=== PATIENT | male | born 1955 | race Caucasian/White ===

== ENCOUNTER 2019-09-13 10:35 | Emergency (ER) | payer OTHER, SELFPAY ==
[2019-09-13] MEDS ORDERED: Sodium Chloride 0.9% 1000 ML 1,000 ML IV STA (10:43)
[2019-09-13] MEDS ORDERED: Sodium Chloride 0.9% 1000 ML 1,000 ML ONE (10:54)
[2019-09-13] MEDS ORDERED: Zofran 4 MG/2 ML VIAL IV ONE ×2 (10:55→11:24)
[2019-09-13] MEDS ORDERED: Zofran 4 MG/2 ML VIAL ONE ×2 (10:55→11:26)
[2019-09-13] MEDS ORDERED: TORAdol 30 mg Injection IV ONE (10:55)
[2019-09-13] MEDS ORDERED: TORAdol 30 mg Injection ONE (10:56)
[2019-09-13 11:07] LABS: Absolute Neutrophil Ct (ANC) 9.81 (1.4-6.9); BASOPHIL % 0.3 % (0.0-0.4); Basophil (Absolute #) 0.03 (0-0.4); Eosinophil % 0.3 % (0.00-5.0); Eosinophil (Absolute #) 0.04 (0-0.5); Hematocrit 46.4 % (42-50); Hemoglobin 15.2 gm/dl (12.5-18.0); Lymphocyte (Absolute #) 1.18 (1.0-4.6); Lymphocytes % 10.2 % (24.0-44.0); Mean Cell Volume 88.7 fl (78-100); Mean Corpuscular Hemoglobin 29.1 pg (26-32); Mean Corpuscular Hgb Concent. 32.8 g/dl (32-36); Mean Platelet Volume 11.3 fl (7.5-11.0); Monocyte (Absolute #) 0.54 (0.0-1.3); Monocytes % 4.7 % (0.0-12.0); Neutrophil % 84.5 % (36.0-66.0); Platelet Count 193 K/mm3 (150-450); Red Blood Count 5.23 M/mm3 (4.1-5.6); Red Cell Distribution Width 13.2 % (11.5-14.0); White Blood Count 11.6 K/mm3 (4.0-10.5)
[2019-09-13 11:21] LABS: ALBUMIN 4.4 g/dL (3.5-5.0); ALKALINE PHOSPHATASE 182 U/L (38-126); AMYLASE 131 U/L (30-110); ANION GAP 14.3 MEQ/L (5-15); BLOOD UREA NITROGEN 18 mg/dL (9-20); CHLORIDE 106 mmol/L (98-107); Calcium 9.7 mg/dL (8.4-10.2); Carbon Dioxide 24 mmol/L (22-30); Creatinine 1 1.14 mg/dL (0.66-1.25); Glucose 242 mg/dL (74-106); LIPASE 563 U/L (23-300); Potassium 3.8 mmol/L (3.5-5.1); SGOT/AST 29 U/L (17-59); SGPT/ALT 22 U/L (0-50); SODIUM 140 mmol/L (137-145); Total Protein 7.9 g/dL (6.3-8.2)
[2019-09-13] MEDS ORDERED: SUBLIMAZE 100 MCG/2 ML IV ONE (11:24)
[2019-09-13] MEDS ORDERED: SUBLIMAZE 100 MCG/2 ML ONE (11:27)
--- NOTE | 2019-09-13 11:42 | ERPHSYRPT ---
- History of Present Illness Time Seen by Provider: 09/13/19 10:39 Historian: patient Exam Limitations: no limitations Patient Subjective Stated Complaint: pt here for pain to left side of abd since 0300 this morning, with nausea and vomitng. states pain radiates to left flank. Triage Nursing Assessment: pt alert, helped pt out of care, moaning, placed face mask, resp easy, skin w/d/p. abd soft, no difficulty with bowel and bladder Physician History: 64 yo wm w LLQ pain rated an 8 for 8hrs. Pt has L flank pain also w N/V but denies hematemesis/diarrhea/melena/hematochezia/dysuria/hematuria/chest pain/dyspnea/fever. Nothing makes the pain better/worse. Timing/Duration: hour(s) (8Hr) Activities at Onset: rest Quality: other (Unable to describe) Abdominal Pain Onset Location: LLQ Pain Radiation: flank Severity of Pain-Max: severe Severity of Pain-Current: severe Modifying Factors: Improves With: nothing Associated Symptoms: back, nausea, vomiting, No chest pain, No diaphoresis, No diarrhea, No fever/chills, No fatigue, No headache, No heartburn, No loss of appetite, No neck pain, No rash, No shortness of breath, No syncope, No testicular pain, No weakness Previous symptoms: other (Similar symptoms 1-2 days ago w spontaneous resolution) Allergies/Adverse Reactions: No Known Drug Allergies Allergy (Unverified 09/13/19 10:38) Hx Influenza Vaccination/Date Given: No Hx Pneumococcal Vaccination/Date Given: No Immunizations Up to Date: Yes Travel Risk - International Travel Have you traveled outside of the country in past 3 weeks: No - Coronavirus Screening Are you exhibiting any of the following symptoms?: Yes Symptoms: Vomiting/Diarrhea Close contact with a COVID-19 positive Pt in past 14-21 Days: No - Review of Systems Constitutional: No Symptoms Eyes: No Symptoms Ears, Nose, & Throat: No Symptoms Respiratory: No Symptoms Cardiac: No Symptoms Genitourinary Symptoms: No Symptoms Musculoskeletal: No Symptoms Skin: No Symptoms Neurological: No Symptoms Psychological: No Symptoms Endocrine: No Symptoms Hematologic/Lymphatic: No Symptoms Immunological/Allergic: No Symptoms - Past Medical History Pertinent Past Medical History: Yes Cardiac History: High Cholesterol, Hypertension - Past Surgical History Past Surgical History: No - Social History Smoking Status: Former smoker Exposure to second hand smoke: No Drug Use: marijuana Patient Lives Alone: No Significant Family History: no pertinent family hx - Nursing Vital Signs Nursing Vital Signs: Initial Vital Signs Temperature 98.7 F 09/13/19 10:38 Pulse Rate 73 09/13/19 10:38 Respiratory Rate 18 09/13/19 10:38 Blood Pressure 197/100 09/13/19 10:38 O2 Sat by Pulse Oximetry 98 09/13/19 10:38 Pain Scale Pain Intensity 3 - Physical Exam General Appearance: no apparent distress (Pt in pain) Eye Exam: PERRL/EOMI, eyes nml inspection Ears, Nose, Throat Exam: normal ENT inspection, TMs normal, pharynx normal, moist mucous membranes Neck Exam: normal inspection, non-tender, supple, full range of motion, No meningismus, No mass, No Brudzinski, No Kernig's Respiratory Exam: normal breath sounds, lungs clear, airway intact, No respiratory distress Cardiovascular Exam: regular rate/rhythm, normal heart sounds, normal peripheral pulses, No murmur, No edema Gastrointestinal/Abdomen Exam: soft, tenderness (LLQ ttp w guarding/No rebound/L flank ttp) SpO2: 98 - CT Exams Abdomen/Pelvis CT Interpretation: Tele-radiologist Report (4mm L distal ureteral stone/1cm stone inferior pole L kidney/non-calcified nodule RLL) Ordered Tests: Active Orders 24 hr Category Date Time Status IV Insertion STAT Care 09/13/19 10:43 Active ABDOMEN AND PELVIS W/0 CONTRAS [CT] Stat Exams 09/13/19 12:59 Taken AMYLASE Stat Lab 09/13/19 10:40 Completed CBC W DIFF Stat Lab 09/13/19 10:40 Completed CMP Stat Lab 09/13/19 10:40 Completed LIPASE Stat Lab 09/13/19 10:40 Completed TROPONIN Q3H Lab 09/13/19 10:40 Completed TROPONIN Q3H Lab 09/13/19 14:00 Ordered TROPONIN Q3H Lab 09/13/19 17:00 Ordered TROPONIN Q3H Lab 09/13/19 20:00 Ordered TROPONIN Q3H Lab 09/13/19 23:00 Ordered UA W/RFX UR CULTURE Stat Lab 09/13/19 12:11 Completed Medication Summary Discontinued Medications Generic Name Dose Route Start Last Admin Trade Name Freq PRN Reason Stop Dose Admin Fentanyl Citrate 50 mcg 09/13/19 11:24 09/13/19 11:29 Sublimaze 100 Mcg/2 Ml IV 09/13/19 11:25 50 mcg STAT ONE Administration Fentanyl Citrate Confirm 09/13/19 11:27 Sublimaze 100 Mcg/2 Ml Administered 09/13/19 11:28 Dose 100 mcg .ROUTE .STK-MED ONE Sodium Chloride 1,000 mls @ 999 mls/hr 09/13/19 10:43 09/13/19 12:03 Sodium Chloride 0.9% 1000 Ml IV 09/13/19 11:43 Infused .Q1H1M STA Infusion Sodium Chloride Confirm 09/13/19 10:54 Sodium Chloride 0.9% 1000 Ml Administered 09/13/19 10:55 Dose 1,000 mls @ ud .ROUTE .STK-MED ONE Ketorolac Tromethamine 30 mg 09/13/19 10:55 09/13/19 10:56 Toradol 30 Mg Injection IV 09/13/19 10:56 30 mg STAT ONE Administration Ketorolac Tromethamine Confirm 09/13/19 10:56 Toradol 30 Mg Injection Administered 09/13/19 10:57 Dose 30 mg .ROUTE .STK-MED ONE Ondansetron HCl 4 mg 09/13/19 10:55 09/13/19 10:56 Zofran 4 Mg/2 Ml Vial IV 09/13/19 10:56 4 mg STAT ONE Administration Ondansetron HCl Confirm 09/13/19 10:55 Zofran 4 Mg/2 Ml Vial Administered 09/13/19 10:56 Dose 4 mg .ROUTE .STK-MED ONE Ondansetron HCl 4 mg 09/13/19 11:24 09/13/19 11:29 Zofran 4 Mg/2 Ml Vial IV 09/13/19 11:25 4 mg STAT ONE Administration Ondansetron HCl Confirm 09/13/19 11:26 Zofran 4 Mg/2 Ml Vial Administered 09/13/19 11:27 Dose 4 mg .ROUTE .STK-MED ONE Lab/Rad Data: Laboratory Result Diagrams 09/13/19 10:40 09/13/19 10:40 Laboratory Results 07/26/20 07/26/20 07/26/20 Range/Units 12:11 10:40 10:40 WBC (4.0-10.5) K/mm3 RBC (4.1-5.6) M/mm3 Hgb (12.5-18.0) gm/dl Hct (42-50) % MCV (78-100) fl MCH (26-32) pg MCHC (32-36) g/dl RDW (11.5-14.0) % Plt Count (150-450) K/mm3 MPV (7.5-11.0) fl Gran % (36.0-66.0) % Eos # (Auto) (0-0.5) Absolute Lymphs (auto) (1.0-4.6) Absolute Monos (auto) (0.0-1.3) Lymphocytes % (24.0-44.0) % Monocytes % (0.0-12.0) % Eosinophils % (0.00-5.0) % Basophils % (0.0-0.4) % Absolute Granulocytes (1.4-6.9) Basophils # (0-0.4) Sodium 140 (137-145) mmol/L Potassium 3.8 (3.5-5.1) mmol/L Chloride 106 (98-107) mmol/L Carbon Dioxide 24 (22-30) mmol/L Anion Gap 14.3 (5-15) MEQ/L BUN 18 (9-20) mg/dL Creatinine 1.14 (0.66-1.25) mg/dL Estimated GFR > 60.0 ML/MIN Glucose 242 H (74-106) mg/dL Calcium 9.7 (8.4-10.2) mg/dL Total Bilirubin 0.90 (0.2-1.3) mg/dL AST 29 (17-59) U/L ALT 22 (0-50) U/L Alkaline Phosphatase 182 H (38-126) U/L Troponin I < 0.012 (0.000-0.034) ng/mL Serum Total Protein 7.9 (6.3-8.2) g/dL Albumin 4.4 (3.5-5.0) g/dL Amylase 131 H (30-110) U/L Lipase 563 H (23-300) U/L Urine Color STRAW (YELLOW) Urine Appearance CLEAR (CLEAR) Urine pH 7.0 (5-6) Ur Specific [place] 1.017 (1.005-1.025) Urine Protein NEGATIVE (Negative) Urine Ketones TRACE (NEGATIVE) Urine Blood MODERATE (0-5) Shilo/ul Urine Nitrite NEGATIVE (NEGATIVE) Urine Bilirubin NEGATIVE (NEGATIVE) Urine Urobilinogen NEGATIVE (0-1) mg/dL Ur Leukocyte Esterase NEGATIVE (NEGATIVE) Urine WBC (Auto) NONE (0-5) /HPF Urine RBC (Auto) 16-25 (0-2) /HPF U Epithel Cells (Auto) NONE (FEW) /HPF Urine Bacteria (Auto) RARE (NEGATIVE) /HPF Urine Culture Reflexed NO (NO) Urine Glucose >=500 (NEGATIVE) mg/dL 09/13/19 Range/Units 10:40 WBC 11.6 H (4.0-10.5) K/mm3 RBC 5.23 (4.1-5.6) M/mm3 Hgb 15.2 (12.5-18.0) gm/dl Hct 46.4 (42-50) % MCV 88.7 (78-100) fl MCH 29.1 (26-32) pg MCHC 32.8 (32-36) g/dl RDW 13.2 (11.5-14.0) % Plt Count 193 (150-450) K/mm3 MPV 11.3 H (7.5-11.0) fl Gran % 84.5 H (36.0-66.0) % Eos # (Auto) 0.04 (0-0.5) Absolute Lymphs (auto) 1.18 (1.0-4.6) Absolute Monos (auto) 0.54 (0.0-1.3) Lymphocytes % 10.2 L (24.0-44.0) % Monocytes % 4.7 (0.0-12.0) % Eosinophils % 0.3 (0.00-5.0) % Basophils % 0.3 (0.0-0.4) % Absolute Granulocytes 9.81 H (1.4-6.9) Basophils # 0.03 (0-0.4) Sodium (137-145) mmol/L Potassium (3.5-5.1) mmol/L Chloride (98-107) mmol/L Carbon Dioxide (22-30) mmol/L Anion Gap (5-15) MEQ/L BUN (9-20) mg/dL Creatinine (0.66-1.25) mg/dL Estimated GFR ML/MIN Glucose (74-106) mg/dL Calcium (8.4-10.2) mg/dL Total Bilirubin (0.2-1.3) mg/dL AST (17-59) U/L ALT (0-50) U/L Alkaline Phosphatase (38-126) U/L Troponin I (0.000-0.034) ng/mL Serum Total Protein (6.3-8.2) g/dL Albumin (3.5-5.0) g/dL Amylase (30-110) U/L Lipase (23-300) U/L Urine Color (YELLOW) Urine Appearance (CLEAR) Urine pH (5-6) Ur Specific [place] (1.005-1.025) Urine Protein (Negative) Urine Ketones (NEGATIVE) Urine Blood (0-5) Shilo/ul Urine Nitrite (NEGATIVE) Urine Bilirubin (NEGATIVE) Urine Urobilinogen (0-1) mg/dL Ur Leukocyte Esterase (NEGATIVE) Urine WBC (Auto) (0-5) /HPF Urine RBC (Auto) (0-2) /HPF U Epithel Cells (Auto) (FEW) /HPF Urine Bacteria (Auto) (NEGATIVE) /HPF Urine Culture Reflexed (NO) Urine Glucose (NEGATIVE) mg/dL - Progress Progress: improved Progress Note: 09/13/19 13:04 30mg IV toradol/4mg IV zofran w improvement in pain 50umg IV fentanyl/4mg IV zofran w great improvement in pain 1L NS bolus Discussed with Dr.: Other (Dr. Fabian) Counseled pt/family regarding: lab results, diagnosis, rad results - Departure Departure Disposition: Home Clinical Impression: Ureterolithiasis, Lung nodule Condition: Stable Critical Care Time: No Referrals: GRZEGORZ JOHNSON MD [Primary Care Provider] - KRISTOFER FABIAN [COURTESY STAFF] - Additional Instructions: Strain all urine Pain meds as needed Follow up with Dr. Fabian(urologist in AM) and Dr. Johnson about lung nodule Return to ER for increasing pain or temperature greater than 100.5 Prescriptions: Hydrocodone Bit/Acetaminophen [[place] 10-325 Tablet] 1 each PO Q4-6HPRN PRN #6 tablet PRN Reason: Pain
[2019-09-13 12:11] LABS: Appearance CLEAR (CLEAR); Bacteria RARE /HPF (NEGATIVE); Bilirubin NEGATIVE (NEGATIVE); Blood MODERATE Ery/ul (0-5); Glucose >=500 mg/dL (NEGATIVE); Ketones TRACE (NEGATIVE); Leukocyte Esterase NEGATIVE (NEGATIVE); Nitrite NEGATIVE (NEGATIVE); Protein,Urine Dip NEGATIVE (Negative); Specific Gravity 1.017 (1.005-1.025); Urobilinogen NEGATIVE mg/dL (0-1)
[2019-09-13 12:32] VITALS: BP 183/91
[2019-09-13 13:11] VITALS: PULSE 73
[2019-09-13 13:48] VITALS: O2SAT 98
--- NOTE | 2019-09-13 21:09 | XRAY ---
Indication: Left flank pain. Hematuria. Multiple contiguous axial images obtained through the abdomen and pelvis without contrast using renal stone protocol. Comparison: None Lung bases demonstrates mild bilateral dependent atelectasis. Indeterminant 11 mm posterior medial right lower lobe noncalcified nodule. No infiltrate or effusion. Heart is not enlarged. Small fluid in the distal esophagus presumed from gastroesophageal reflux. 4 mm distal left ureter calculus approximately 1 cm proximal to the UVJ. Proximal left ureter minimally prominent and there is mild hydronephrosis consistent with partial obstructive uropathy. Additional 9 mm left renal and punctate right renal calculus. Noncontrasted stomach and bowel loops appear nonobstructed. Normal appendix. No free fluid/air. Spleen is enlarged measuring 13.4 cm in greatest axial dimension. 2 cm left adrenal adenoma. Enlarged prostate gland impresses on the base of the bladder. Remaining liver, gallbladder, pancreas, spleen, right adrenal gland, and bladder appear unremarkable for noncontrast exam. Mild scattered aortoiliac calcifications without AAA. Osseous structures intact with mild degenerative changes throughout the thoracolumbar spine. Small fatty left inguinal hernia. Impression: 1. 4 mm distal left ureter calculus producing partial obstruction. Additional calculus in each kidney. 2. Incidental left adrenal adenoma, splenomegaly, enlarged prostate gland, and fatty left inguinal hernia. 3. Indeterminant 11 mm right lower lobe noncalcified nodule. Outside comparison studies recommended if available. If not, recommend CT chest to establish baseline with follow-up per Fleischner guidelines. Comment: Preliminary interpretation was made by [facility]. No critical discrepancy.
== END 2019-09-13 14:07 | disposition home or self-care (01) ==
LOC: ED 10:35
DX: N20.1 Calculus of ureter (principal); R91.1 Solitary pulmonary nodule
CPT/HCPCS: 36000; 36415; 74176; 80053; 81001; 82150; 83690; 84484; 85025; 96360; 96374; 96375; 96376; 99284; J1885; J2405; J3010

== ENCOUNTER 2020-01-15 16:22 | Emergency (ER) | payer MEDICARE, OTHER ==
--- NOTE | 2020-01-15 16:28 | ERPHSYRPT ---
- History of Present Illness Time Seen by Provider: 01/15/20 16:27 Historian: patient Exam Limitations: no limitations Physician History: This is a 64-year-old diabetic white male has a history of high cholesterol and hypertension and presents with right upper quadrant abdominal pain of 2 to 3-day duration. The pain is intermittent and sharp. It does not radiate. There is associated nausea but no vomiting. There has been some bloating sensation. There is been no diarrhea. Patient denies chest pain and he denies shortness of breath. Patient has had no prior abdominal surgeries. Patient has never had anything like this before. Timing/Duration: day(s) Activities at Onset: none Quality: sharpness Abdominal Pain Onset Location: RUQ Pain Radiation: no radiation Severity of Pain-Max: moderate Severity of Pain-Current: mild Modifying Factors: Improves With: nothing Associated Symptoms: nausea, No chest pain, No heartburn, No shortness of breath, No vomiting Previous symptoms: no prior history Allergies/Adverse Reactions: No Known Drug Allergies Allergy (Verified 01/15/20 16:43) Home Medications: Insulin Glargine [Lantus Insulin] 25 units SQ BID 01/15/20 [History] Pravastatin Sodium 40 mg PO DAILY 01/15/20 [History] lisinopriL [Lisinopril] 5 mg PO DAILY 01/15/20 [History] Hx Influenza Vaccination/Date Given: No Hx Pneumococcal Vaccination/Date Given: No Travel Risk - International Travel Have you traveled outside of the country in past 3 weeks: No - Coronavirus Screening Are you exhibiting any of the following symptoms?: No Close contact with a COVID-19 positive Pt in past 14-21 Days: No - Review of Systems Constitutional: No Symptoms Eyes: No Symptoms Ears, Nose, & Throat: No Symptoms Respiratory: No Symptoms Cardiac: No Symptoms Abdominal/Gastrointestinal: Abdominal Pain (Right upper quadrant), Nausea Genitourinary Symptoms: No Symptoms Musculoskeletal: No Symptoms Skin: No Symptoms Neurological: No Symptoms Psychological: No Symptoms Endocrine: No Symptoms Hematologic/Lymphatic: No Symptoms Immunological/Allergic: No Symptoms - Past Medical History Pertinent Past Medical History: Yes Cardiac History: High Cholesterol, Hypertension - Past Surgical History Past Surgical History: No - Social History Smoking Status: Former smoker Exposure to second hand smoke: No Drug Use: marijuana Patient Lives Alone: No Significant Family History: no pertinent family hx - Nursing Vital Signs Nursing Vital Signs: Initial Vital Signs Temperature 98.1 F 01/15/20 16:28 Pulse Rate 97 H 01/15/20 16:28 Respiratory Rate 18 01/15/20 16:28 Blood Pressure 171/82 01/15/20 16:28 O2 Sat by Pulse Oximetry 97 01/15/20 16:28 Pain Scale Pain Intensity 1 - Physical Exam General Appearance: no apparent distress, alert, anxiety Eye Exam: PERRL/EOMI, eyes nml inspection Ears, Nose, Throat Exam: normal ENT inspection, moist mucous membranes Neck Exam: normal inspection, non-tender, supple, full range of motion Respiratory Exam: normal breath sounds, lungs clear, airway intact, No chest tenderness, No respiratory distress Cardiovascular Exam: regular rate/rhythm, normal heart sounds, normal peripheral pulses Gastrointestinal/Abdomen Exam: soft, normal bowel sounds, tenderness (Mild right upper quadrant), guarding (Mild), No rebound Rectal Exam: not done Back Exam: normal inspection, normal range of motion, No CVA tenderness, No vertebral tenderness Extremity Exam: normal inspection, normal range of motion, pelvis stable Neurologic Exam: alert, oriented x 3, cooperative, 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 as tested, normal mood/affect, nml cerebellar function, nml station & gait, sensation nml Skin Exam: normal color, warm, dry Lymphatic Exam: No adenopathy SpO2 Interpretation: normal O2 Delivery: Room Air - Course Nursing assessment & vital signs reviewed: Yes Ordered Tests: Active Orders 24 hr Category Date Time Status IV Insertion STAT Care 01/15/20 16:59 Active ABDOMEN AND PELVIS W/0 CONTRAS [CT] Stat Exams 01/15/20 17:02 Taken AMYLASE Stat Lab 01/15/20 16:45 Completed CBC W DIFF Stat Lab 01/15/20 16:45 Completed CMP Stat Lab 01/15/20 16:45 Completed LIPASE Stat Lab 01/15/20 16:45 Completed Lactic Acid Stat Lab 01/15/20 16:59 Completed UA W/RFX UR CULTURE Stat Lab 01/15/20 17:05 Completed Lab/Rad Data: Laboratory Result Diagrams 01/15/20 16:45 01/15/20 16:45 Laboratory Results 01/15/20 01/15/20 01/15/20 Range/Units 17:05 16:59 16:45 WBC (4.0-10.5) K/mm3 RBC (4.1-5.6) M/mm3 Hgb (12.5-18.0) gm/dl Hct (42-50) % MCV (78-100) fl MCH (26-32) pg MCHC (32-36) g/dl RDW (11.5-14.0) % Plt Count (150-450) K/mm3 MPV (7.5-11.0) fl Gran % (36.0-66.0) % Eos # (Auto) (0-0.5) Absolute Lymphs (auto) (1.0-4.6) Absolute Monos (auto) (0.0-1.3) Lymphocytes % (24.0-44.0) % Monocytes % (0.0-12.0) % Eosinophils % (0.00-5.0) % Basophils % (0.0-0.4) % Absolute Granulocytes (1.4-6.9) Basophils # (0-0.4) Sodium 140 (137-145) mmol/L Potassium 3.5 (3.5-5.1) mmol/L Chloride 102 (98-107) mmol/L Carbon Dioxide 29 (22-30) mmol/L Anion Gap 12.4 (5-15) MEQ/L BUN 16 (9-20) mg/dL Creatinine 0.93 (0.66-1.25) mg/dL Estimated GFR > 60.0 ML/MIN Glucose 114 H (74-106) mg/dL Lactic Acid 1.3 (0.4-2.0) Calcium 10.0 (8.4-10.2) mg/dL Total Bilirubin 0.70 (0.2-1.3) mg/dL AST 28 (17-59) U/L ALT 26 (0-50) U/L Alkaline Phosphatase 151 H (38-126) U/L Serum Total Protein 8.9 H (6.3-8.2) g/dL Albumin 4.8 (3.5-5.0) g/dL Amylase 97 (30-110) U/L Lipase 162 (23-300) U/L Urine Color STRAW (YELLOW) Urine Appearance CLEAR (CLEAR) Urine pH 7.0 (5-6) Ur Specific [place] 1.008 (1.005-1.025) Urine Protein NEGATIVE (Negative) Urine Ketones NEGATIVE (NEGATIVE) Urine Blood NEGATIVE (0-5) Shilo/ul Urine Nitrite NEGATIVE (NEGATIVE) Urine Bilirubin NEGATIVE (NEGATIVE) Urine Urobilinogen NEGATIVE (0-1) mg/dL Ur Leukocyte Esterase NEGATIVE (NEGATIVE) Urine WBC (Auto) NONE (0-5) /HPF Urine RBC (Auto) NONE (0-2) /HPF U Epithel Cells (Auto) NONE (FEW) /HPF Urine Bacteria (Auto) NONE (NEGATIVE) /HPF Urine Mucus (Auto) SLIGHT (NEGATIVE) /HPF Urine Culture Reflexed NO (NO) Urine Glucose 50 (NEGATIVE) mg/dL 01/15/20 Range/Units 16:45 WBC 12.2 H (4.0-10.5) K/mm3 RBC 5.36 (4.1-5.6) M/mm3 Hgb 15.7 (12.5-18.0) gm/dl Hct 47.7 (42-50) % MCV 89.0 (78-100) fl MCH 29.3 (26-32) pg MCHC 32.9 (32-36) g/dl RDW 13.2 (11.5-14.0) % Plt Count 256 (150-450) K/mm3 MPV 11.1 H (7.5-11.0) fl Gran % 61.0 (36.0-66.0) % Eos # (Auto) 0.52 H (0-0.5) Absolute Lymphs (auto) 3.37 (1.0-4.6) Absolute Monos (auto) 0.83 (0.0-1.3) Lymphocytes % 27.6 (24.0-44.0) % Monocytes % 6.8 (0.0-12.0) % Eosinophils % 4.3 (0.00-5.0) % Basophils % 0.3 (0.0-0.4) % Absolute Granulocytes 7.46 H (1.4-6.9) Basophils # 0.04 (0-0.4) Sodium (137-145) mmol/L Potassium (3.5-5.1) mmol/L Chloride (98-107) mmol/L Carbon Dioxide (22-30) mmol/L Anion Gap (5-15) MEQ/L BUN (9-20) mg/dL Creatinine (0.66-1.25) mg/dL Estimated GFR ML/MIN Glucose (74-106) mg/dL Lactic Acid (0.4-2.0) Calcium (8.4-10.2) mg/dL Total Bilirubin (0.2-1.3) mg/dL AST (17-59) U/L ALT (0-50) U/L Alkaline Phosphatase (38-126) U/L Serum Total Protein (6.3-8.2) g/dL Albumin (3.5-5.0) g/dL Amylase (30-110) U/L Lipase (23-300) U/L Urine Color (YELLOW) Urine Appearance (CLEAR) Urine pH (5-6) Ur Specific [place] (1.005-1.025) Urine Protein (Negative) Urine Ketones (NEGATIVE) Urine Blood (0-5) Shilo/ul Urine Nitrite (NEGATIVE) Urine Bilirubin (NEGATIVE) Urine Urobilinogen (0-1) mg/dL Ur Leukocyte Esterase (NEGATIVE) Urine WBC (Auto) (0-5) /HPF Urine RBC (Auto) (0-2) /HPF U Epithel Cells (Auto) (FEW) /HPF Urine Bacteria (Auto) (NEGATIVE) /HPF Urine Mucus (Auto) (NEGATIVE) /HPF Urine Culture Reflexed (NO) Urine Glucose (NEGATIVE) mg/dL - Progress Progress: improved, re-examined Progress Note: 01/15/20 18:40 Noncontrast CAT scan of the abdomen and pelvis reveals bilateral nonobstructive renal calculi no other acute findings present intra-abdominal he Counseled pt/family regarding: lab results, diagnosis, need for follow-up, rad results - Departure Departure Disposition: Home Clinical Impression: Right upper quadrant abdominal pain Condition: Stable Critical Care Time: No Referrals: GRZEGORZ JOHNSON MD [Primary Care Provider] - Additional Instructions: Avoid fatty greasy spicy foods. Follow-up with your prescribing doctor for further management and evaluation of your symptoms. Use Tylenol and ibuprofen for pain control.
[2020-01-15 17:11] LABS: Absolute Neutrophil Ct (ANC) 7.46 (1.4-6.9); BASOPHIL % 0.3 % (0.0-0.4); Basophil (Absolute #) 0.04 (0-0.4); Eosinophil % 4.3 % (0.00-5.0); Eosinophil (Absolute #) 0.52 (0-0.5); Hematocrit 47.7 % (42-50); Hemoglobin 15.7 gm/dl (12.5-18.0); Lymphocyte (Absolute #) 3.37 (1.0-4.6); Lymphocytes % 27.6 % (24.0-44.0); Mean Corpuscular Hemoglobin 29.3 pg (26-32); Mean Corpuscular Hgb Concent. 32.9 g/dl (32-36); Mean Platelet Volume 11.1 fl (7.5-11.0); Monocyte (Absolute #) 0.83 (0.0-1.3); Monocytes % 6.8 % (0.0-12.0); Platelet Count 256 K/mm3 (150-450); Red Blood Count 5.36 M/mm3 (4.1-5.6); Red Cell Distribution Width 13.2 % (11.5-14.0); White Blood Count 12.2 K/mm3 (4.0-10.5)
[2020-01-15 17:13] LABS: Appearance CLEAR (CLEAR); Bilirubin NEGATIVE (NEGATIVE); Blood NEGATIVE Ery/ul (0-5); Glucose 50 mg/dL (NEGATIVE); Ketones NEGATIVE (NEGATIVE); Leukocyte Esterase NEGATIVE (NEGATIVE); Mucus SLIGHT /HPF (NEGATIVE); Nitrite NEGATIVE (NEGATIVE); Protein,Urine Dip NEGATIVE (Negative); Specific Gravity 1.008 (1.005-1.025); Urobilinogen NEGATIVE mg/dL (0-1)
[2020-01-15 17:13] LABS: ALBUMIN 4.8 g/dL (3.5-5.0); ALKALINE PHOSPHATASE 151 U/L (38-126); AMYLASE 97 U/L (30-110); ANION GAP 12.4 MEQ/L (5-15); BLOOD UREA NITROGEN 16 mg/dL (9-20); CHLORIDE 102 mmol/L (98-107); Carbon Dioxide 29 mmol/L (22-30); Creatinine 1 0.93 mg/dL (0.66-1.25); EST GLOMERULAR FILTRATION RATE > 60.0 ML/MIN; Glucose 114 mg/dL (74-106); LIPASE 162 U/L (23-300); Potassium 3.5 mmol/L (3.5-5.1); SGOT/AST 28 U/L (17-59); SGPT/ALT 26 U/L (0-50); SODIUM 140 mmol/L (137-145); Total Protein 8.9 g/dL (6.3-8.2)
[2020-01-15 18:42] VITALS: O2SAT 97
[2020-01-15 19:07] VITALS: BP 159/93; PULSE 76
--- NOTE | 2020-01-15 19:26 | XRAY ---
Indication: White upper quadrant pain and nausea 2 days. Multiple contiguous axial images obtained through the abdomen and pelvis without contrast as ordered. Comparison: September 13, 2019. Lung bases demonstrate stable 11 mm medial right lower lobe noncalcified nodule. No infiltrate or effusion. Heart is not enlarged. Noncontrasted stomach and bowel loops appear nonobstructed. Normal appendix. There remains nonobstructing microcalculus in each kidney. No free fluid/air. Stable small left adrenal adenoma and enlarged prostate gland. Remaining liver, gallbladder, pancreas, spleen, right adrenal gland, kidneys, ureters, and bladder appear unremarkable for noncontrast exam. Stable mild aortoiliac calcifications without AAA. Osseous structures intact again with mild degenerative changes throughout the thoracolumbar spine. Stable small fatty left inguinal hernia. Impression: 1. Again bilateral renal microcalculus, left adrenal adenoma, enlarged prostate gland, and fatty left inguinal hernia. 2. Stable indeterminant right lower lobe noncalcified nodule. 3. Remaining CT abdomen/pelvis without contrast exam is negative. Comment: Preliminary interpretation was made by [facility]. No critical discrepancy.
== END 2020-01-15 19:08 | disposition home or self-care (01) ==
LOC: ED 16:22
DX: R10.11 Right upper quadrant pain (principal); I10 Essential (primary) hypertension
CPT/HCPCS: 36000; 36415; 74176; 80053; 81001; 82150; 83605; 83690; 85025; 99284

== ENCOUNTER 2020-05-31 07:03 | Emergency (ER) | payer MEDICARE, OTHER ==
[2020-05-31] MEDS ORDERED: MORPHINE SULFATE 2 MG INJ IV ONE (07:14)
[2020-05-31] MEDS ORDERED: Zofran 4 MG/2 ML VIAL IV ONE (07:14)
[2020-05-31] MEDS ORDERED: Sodium Chloride 0.9% 1000 ML 1,000 ML IV SCH (07:15)
[2020-05-31] MEDS ORDERED: Sodium Chloride 0.9% 1000 ML 1,000 ML ONE (07:23)
[2020-05-31] MEDS ORDERED: MORPHINE SULFATE 4 MG INJ ONE ×2 (07:23→07:57)
[2020-05-31] MEDS ORDERED: MORPHINE SULFATE 2 MG INJ ONE (07:28)
[2020-05-31] MEDS ORDERED: MORPHINE SULFATE 4 MG INJ IV ONE (07:53)
--- NOTE | 2020-05-31 07:53 | ERPHSYRPT ---
- History of Present Illness Time Seen by Provider: 05/31/20 07:10 Historian: patient Exam Limitations: no limitations Patient Subjective Stated Complaint: pt here for n/v/d since last night after eating salmon, no one els in house is ill, he [place] co chills Triage Nursing Assessment: pt alert, resp easy, skin w/d/p. pt moaning, and restless, abd soft but tender Physician History: Patient is a 64-year-old male presents to our emergency department with complaints of nausea vomiting diarrhea and epigastric pain. Symptoms started last night. Patient correlates his symptoms with ingestion of salmon purchased at [employer]. Patient states no one else of the household is ill. Epigastric pain described as an ache that spans from the epigastrium to the right upper quadrant. Patient denies history of abdominal surgery. No associated fever. No trauma. No chest pain or shortness of breath. Symptoms are moderate in intensity. No specific worsening or improving factors. Patient denies history of the same. He voices no other complaints concerns at this time. Timing/Duration: yesterday Activities at Onset: none Quality: aching Abdominal Pain Onset Location: epigastric Pain Radiation: RUQ Severity of Pain-Max: moderate Severity of Pain-Current: mild Modifying Factors: Improves With: palpation Associated Symptoms: diarrhea, fever/chills, nausea, vomiting Previous symptoms: no prior history Allergies/Adverse Reactions: No Known Drug Allergies Allergy (Verified 05/31/20 07:12) Home Medications: Insulin Glargine [Lantus Insulin] 25 units SQ BID 01/15/20 [History] Pravastatin Sodium 40 mg PO DAILY 01/15/20 [History] lisinopriL [Lisinopril] 5 mg PO DAILY 01/15/20 [History] Hx Tetanus, Diphtheria Vaccination/Date Given: No Hx Influenza Vaccination/Date Given: Yes Hx Pneumococcal Vaccination/Date Given: No Immunizations Up to Date: Yes Travel Risk - International Travel Have you traveled outside of the country in past 3 weeks: No - Coronavirus Screening Are you exhibiting any of the following symptoms?: No Close contact with a COVID-19 positive Pt in past 14-21 Days: No - Vaccine Status Have you recieved a Covid-19 vaccination: Yes [employer]: Moderna - Vaccination Dates Date of 2cond Vaccination (if applicable): 2 weeks ago - Review of Systems Constitutional: No Symptoms, No Fever, No Chills Eyes: No Symptoms Ears, Nose, & Throat: No Symptoms Respiratory: No Symptoms, No Cough, No Dyspnea Cardiac: No Symptoms, No Chest Pain, No Edema, No Syncope Abdominal/Gastrointestinal: No Symptoms, No Abdominal Pain, No Nausea, No Vomiting, No Diarrhea Genitourinary Symptoms: No Symptoms, No Dysuria Musculoskeletal: No Symptoms, No Back Pain, No Neck Pain Skin: No Symptoms, No Rash Neurological: No Symptoms, No Dizziness, No Focal Weakness, No Sensory Changes Psychological: No Symptoms Endocrine: No Symptoms Hematologic/Lymphatic: No Symptoms Immunological/Allergic: No Symptoms All Other Systems: Reviewed and Negative - Past Medical History Pertinent Past Medical History: Yes Cardiac History: High Cholesterol, Hypertension Endocrine Medical History: Diabetes Type II - Past Surgical History Past Surgical History: No Musculoskeletal: Orthopedic Surgery Other Surgical History: R shoulder 2020 - Social History Smoking Status: Never smoker Exposure to second hand smoke: No Drug Use: marijuana Patient Lives Alone: No Significant Family History: no pertinent family hx - Nursing Vital Signs Nursing Vital Signs: Initial Vital Signs Temperature 97.6 F 05/31/20 07:07 Pulse Rate 80 05/31/20 07:07 Respiratory Rate 20 05/31/20 07:07 Blood Pressure 200/100 05/31/20 07:07 O2 Sat by Pulse Oximetry 99 05/31/20 07:07 Pain Scale Pain Intensity 4 - Physical Exam General Appearance: no apparent distress, alert Eye Exam: PERRL/EOMI, eyes nml inspection Ears, Nose, Throat Exam: normal ENT inspection, pharynx normal, moist mucous membranes Neck Exam: normal inspection, non-tender, supple, full range of motion Respiratory Exam: normal breath sounds, lungs clear, No respiratory distress Cardiovascular Exam: regular rate/rhythm, normal heart sounds Gastrointestinal/Abdomen Exam: soft, tenderness, other (Tenderness to palpation epigastrium. Mild tenderness palpation right upper quadrant.), No mass, No pulsatile mass, No rebound Back Exam: normal inspection, normal range of motion, No CVA tenderness, No vertebral tenderness Extremity Exam: normal inspection, normal range of motion, pelvis stable Neurologic Exam: alert, oriented x 3, cooperative, normal mood/affect, nml cerebellar function, sensation nml, No motor deficits Skin Exam: normal color, warm, dry Lymphatic Exam: No adenopathy SpO2 Interpretation: normal SpO2: 99 O2 Delivery: Room Air - Course Nursing assessment & vital signs reviewed: Yes EKG Interpreted by Me: RATE ([id number]), Sinus Rhythm, NORMAL AXIS, NORMAL INTERVALS Ordered Tests: Active Orders 24 hr Category Date Time Status EKG-ER Only STAT Care 05/31/20 07:16 Active IV Insertion STAT Care 05/31/20 07:14 Active cath [Cath for Residual-In & Out] STAT Care 05/31/20 10:02 Active ABDOMEN AND PELVIS W CONTRAST [CT] Stat Exams 05/31/20 07:15 Completed CBC W DIFF Stat Lab 05/31/20 07:30 Completed CMP Stat Lab 05/31/20 07:30 Completed LIPASE Stat Lab 05/31/20 07:30 Completed MAGNESIUM Stat Lab 05/31/20 07:30 Completed TROPONIN Q3H Lab 05/31/20 07:30 Completed TROPONIN Q3H Lab 05/31/20 10:10 Completed TROPONIN Q3H Lab 05/31/20 13:15 Ordered TROPONIN Q3H Lab 05/31/20 16:15 Ordered TROPONIN Q3H Lab 05/31/20 19:15 Ordered UA W/RFX UR CULTURE Stat Lab 05/31/20 08:01 Completed Transfer Order Routine Transfer 05/31/20 Ordered Medication Summary Generic Name Dose Route Start Last Admin Trade Name Freq PRN Reason Stop Dose Admin Sodium Chloride 1,000 mls @ 100 mls/hr 05/31/20 07:15 05/31/20 07:29 Sodium Chloride 0.9% 1000 Ml IV 06/30/20 07:14 100 mls/hr .Q10H SWATI Administration Discontinued Medications Generic Name Dose Route Start Last Admin Trade Name Freq PRN Reason Stop Dose Admin Al Hydrox/Mg Hydrox/Simethicone Confirm 05/31/20 10:11 Maalox Es 30 Ml Unit Dose Administered 05/31/20 10:12 Dose 30 ml .ROUTE .STK-MED ONE Lidocaine HCl Confirm 05/31/20 10:11 Xylocaine Hcl Viscous * Administered 05/31/20 10:12 Dose 1 ml .ROUTE .STK-MED ONE Magnesium Hydroxide 45 ml 05/31/20 10:06 05/31/20 10:15 Gi Cocktail 45 Ml (Maalox/Lidocaine) PO 05/31/20 10:07 45 ml STAT ONE Administration Morphine Sulfate 2 mg 05/31/20 07:14 05/31/20 07:29 Morphine Sulfate 2 Mg Inj IV 05/31/20 07:15 2 mg STAT ONE Administration Morphine Sulfate Confirm 05/31/20 07:23 Morphine Sulfate 4 Mg Inj Administered 05/31/20 07:24 Dose 4 mg .ROUTE .STK-MED ONE Morphine Sulfate Confirm 05/31/20 07:28 Morphine Sulfate 2 Mg Inj Administered 05/31/20 07:29 Dose 2 mg .ROUTE .STK-MED ONE Morphine Sulfate 4 mg 05/31/20 07:53 05/31/20 07:58 Morphine Sulfate 4 Mg Inj IV 05/31/20 07:54 4 mg STAT ONE Administration Morphine Sulfate Confirm 05/31/20 07:57 Morphine Sulfate 4 Mg Inj Administered 05/31/20 07:58 Dose 4 mg .ROUTE .STK-MED ONE Ondansetron HCl 4 mg 05/31/20 07:14 05/31/20 07:30 Zofran 4 Mg/2 Ml Vial IV 05/31/20 07:15 Not Given STAT ONE Pantoprazole Sodium 40 mg 05/31/20 10:06 05/31/20 10:14 Protonix 40 Mg Iv IV 05/31/20 10:07 40 mg STAT ONE Administration Pantoprazole Sodium Confirm 05/31/20 10:09 Protonix 40 Mg Iv Administered 05/31/20 10:10 Dose 40 mg IV .STK-MED ONE Lab/Rad Data: Laboratory Result Diagrams 05/31/20 07:30 05/31/20 07:30 Laboratory Results 05/31/20 05/31/20 05/31/20 Range/Units 10:10 08:01 07:30 WBC (4.0-10.5) K/mm3 RBC (4.1-5.6) M/mm3 Hgb (12.5-18.0) gm/dl Hct (42-50) % MCV (78-100) fl MCH (26-32) pg MCHC (32-36) g/dl RDW (11.5-14.0) % Plt Count (150-450) K/mm3 MPV (7.5-11.0) fl Gran % (36.0-66.0) % Eos # (Auto) (0-0.5) Absolute Lymphs (auto) (1.0-4.6) Absolute Monos (auto) (0.0-1.3) Lymphocytes % (24.0-44.0) % Monocytes % (0.0-12.0) % Eosinophils % (0.00-5.0) % Basophils % (0.0-0.4) % Absolute Granulocytes (1.4-6.9) Basophils # (0-0.4) Sodium (137-145) mmol/L Potassium (3.5-5.1) mmol/L Chloride (98-107) mmol/L Carbon Dioxide (22-30) mmol/L Anion Gap (5-15) MEQ/L BUN (9-20) mg/dL Creatinine (0.66-1.25) mg/dL Estimated GFR ML/MIN Glucose (74-106) mg/dL Calcium (8.4-10.2) mg/dL Magnesium 2.0 (1.6-2.3) mg/dL Total Bilirubin (0.2-1.3) mg/dL AST (17-59) U/L ALT (0-50) U/L Alkaline Phosphatase (38-126) U/L Troponin I < 0.012 (0.000-0.034) ng/mL Serum Total Protein (6.3-8.2) g/dL Albumin (3.5-5.0) g/dL Lipase (23-300) U/L Urine Color STRAW (YELLOW) Urine Appearance CLEAR (CLEAR) Urine pH 8.0 (5-6) Ur Specific [place] 1.018 (1.005-1.025) Urine Protein 30 (Negative) Urine Ketones NEGATIVE (NEGATIVE) Urine Blood NEGATIVE (0-5) Shilo/ul Urine Nitrite NEGATIVE (NEGATIVE) Urine Bilirubin NEGATIVE (NEGATIVE) Urine Urobilinogen NEGATIVE (0-1) mg/dL Ur Leukocyte Esterase NEGATIVE (NEGATIVE) Urine WBC (Auto) NONE (0-5) /HPF Urine RBC (Auto) NONE (0-2) /HPF U Epithel Cells (Auto) NONE (FEW) /HPF Urine Bacteria (Auto) NONE (NEGATIVE) /HPF Urine Culture Reflexed NO (NO) Urine Glucose >=500 (NEGATIVE) mg/dL 05/31/20 05/31/20 05/31/20 Range/Units 07:30 07:30 07:30 WBC 11.3 H (4.0-10.5) K/mm3 RBC 5.25 (4.1-5.6) M/mm3 Hgb 15.2 (12.5-18.0) gm/dl Hct 46.4 (42-50) % MCV 88.4 (78-100) fl MCH 29.0 (26-32) pg MCHC 32.8 (32-36) g/dl RDW 12.8 (11.5-14.0) % Plt Count 175 (150-450) K/mm3 MPV 11.0 (7.5-11.0) fl Gran % 87.0 H (36.0-66.0) % Eos # (Auto) 0.04 (0-0.5) Absolute Lymphs (auto) 0.97 L (1.0-4.6) Absolute Monos (auto) 0.43 (0.0-1.3) Lymphocytes % 8.6 L (24.0-44.0) % Monocytes % 3.8 (0.0-12.0) % Eosinophils % 0.4 (0.00-5.0) % Basophils % 0.2 (0.0-0.4) % Absolute Granulocytes 9.86 H (1.4-6.9) Basophils # 0.02 (0-0.4) Sodium 141 (137-145) mmol/L Potassium 3.9 (3.5-5.1) mmol/L Chloride 105 (98-107) mmol/L Carbon Dioxide 23 (22-30) mmol/L Anion Gap 16.5 H (5-15) MEQ/L BUN 20 (9-20) mg/dL Creatinine 0.86 (0.66-1.25) mg/dL Estimated GFR > 60.0 ML/MIN Glucose 270 H (74-106) mg/dL Calcium 9.8 (8.4-10.2) mg/dL Magnesium (1.6-2.3) mg/dL Total Bilirubin 0.50 (0.2-1.3) mg/dL AST 39 (17-59) U/L ALT 33 (0-50) U/L Alkaline Phosphatase 173 H (38-126) U/L Troponin I < 0.012 (0.000-0.034) ng/mL Serum Total Protein 7.9 (6.3-8.2) g/dL Albumin 4.6 (3.5-5.0) g/dL Lipase 178 (23-300) U/L Urine Color (YELLOW) Urine Appearance (CLEAR) Urine pH (5-6) Ur Specific [place] (1.005-1.025) Urine Protein (Negative) Urine Ketones (NEGATIVE) Urine Blood (0-5) Shilo/ul Urine Nitrite (NEGATIVE) Urine Bilirubin (NEGATIVE) Urine Urobilinogen (0-1) mg/dL Ur Leukocyte Esterase (NEGATIVE) Urine WBC (Auto) (0-5) /HPF Urine RBC (Auto) (0-2) /HPF U Epithel Cells (Auto) (FEW) /HPF Urine Bacteria (Auto) (NEGATIVE) /HPF Urine Culture Reflexed (NO) Urine Glucose (NEGATIVE) mg/dL - Progress Progress: improved Progress Note: Patient reassessed. He feels somewhat better however is still experiencing epigastric pain. EKG is normal sinus rhythm. Troponin negative. Labs reveal hyperglycemia at 270. Anion gap of 16.5. No ketones in the urine. Imaging study reveals a 11 mm right lower lobe lung nodule, adrenal adenoma and enlarged prostate pressing on the bladder. Urinary bladder is distended. Urinary outlet obstruction versus neurogenic bladder is the working diagnosis. We will place a urinary catheter and obtain post void residual. CT scan also reveals degenerative arthritis of the thoracolumbar spine and a small fatty left inguinal hernia. Due to patient's ongoing symptoms we will admit for further evaluation and treatment. Patient received a GI cocktail. Patient also received a dose of Protonix with multiple doses of morphine for pain control. Case discussed with Dr. Johnson who accepts admission to observation. Plan of care discussed with patient and patient's . They agree to admission to [facility] for further evaluation and treatment. They voiced no other complaints or concerns at this time. Rapid Covid pending. 05/31/20 10:39 05/31/20 10:42 Counseled pt/family regarding: lab results, diagnosis, rad results - Departure Clinical Impression: Nausea and vomiting, Hyperglycemia, Epigastric pain, Diarrhea, Incidental lung nodule, greater than or equal to 8mm, Adrenal adenoma, Prostate hypertrophy, Distended bladder, Arthritis of spine, Inguinal hernia Condition: Stable Critical Care Time: No Referrals: GRZEGORZ JOHNSON MD [Primary Care Provider] -
[2020-05-31 08:00] LABS: Absolute Neutrophil Ct (ANC) 9.86 (1.4-6.9); BASOPHIL % 0.2 % (0.0-0.4); Basophil (Absolute #) 0.02 (0-0.4); Eosinophil % 0.4 % (0.00-5.0); Eosinophil (Absolute #) 0.04 (0-0.5); Hematocrit 46.4 % (42-50); Hemoglobin 15.2 gm/dl (12.5-18.0); Lymphocyte (Absolute #) 0.97 (1.0-4.6); Lymphocytes % 8.6 % (24.0-44.0); Mean Cell Volume 88.4 fl (78-100); Mean Corpuscular Hgb Concent. 32.8 g/dl (32-36); Monocyte (Absolute #) 0.43 (0.0-1.3); Monocytes % 3.8 % (0.0-12.0); Platelet Count 175 K/mm3 (150-450); Red Blood Count 5.25 M/mm3 (4.1-5.6); Red Cell Distribution Width 12.8 % (11.5-14.0); White Blood Count 11.3 K/mm3 (4.0-10.5)
[2020-05-31 08:10] LABS: ALBUMIN 4.6 g/dL (3.5-5.0); ALKALINE PHOSPHATASE 173 U/L (38-126); ANION GAP 16.5 MEQ/L (5-15); BLOOD UREA NITROGEN 20 mg/dL (9-20); CHLORIDE 105 mmol/L (98-107); Calcium 9.8 mg/dL (8.4-10.2); Carbon Dioxide 23 mmol/L (22-30); Creatinine 1 0.86 mg/dL (0.66-1.25); EST GLOMERULAR FILTRATION RATE > 60.0 ML/MIN; Glucose 270 mg/dL (74-106); LIPASE 178 U/L (23-300); Potassium 3.9 mmol/L (3.5-5.1); SGOT/AST 39 U/L (17-59); SGPT/ALT 33 U/L (0-50); SODIUM 141 mmol/L (137-145); Total Protein 7.9 g/dL (6.3-8.2)
[2020-05-31 08:15] LABS: Appearance CLEAR (CLEAR); Bilirubin NEGATIVE (NEGATIVE); Blood NEGATIVE Ery/ul (0-5); Glucose >=500 mg/dL (NEGATIVE); Ketones NEGATIVE (NEGATIVE); Leukocyte Esterase NEGATIVE (NEGATIVE); Nitrite NEGATIVE (NEGATIVE); Protein,Urine Dip 30 (Negative); Specific Gravity 1.018 (1.005-1.025); Urobilinogen NEGATIVE mg/dL (0-1)
--- NOTE | 2020-05-31 09:21 | XRAY ---
Indication: Abdominal pain, nausea, and vomiting. Difficulty urinating. Multiple contiguous axial images obtained through the abdomen and pelvis using 80 cc Isovue 370 contrast. Comparison: January 15, 2020. Lung bases demonstrate stable 11 mm medial right lower lobe noncalcified nodule. No infiltrate or effusion. Heart is not enlarged. Noncontrasted stomach and bowel loops nonobstructed. Normal appendix. No free fluid/air. Stable small left adrenal adenoma and enlarged prostate gland impressing on the base of the bladder. Urinary bladder is now markedly distended either due to outlet obstruction versus neurogenic bladder. Remaining liver, gallbladder, pancreas, spleen, adrenal glands, kidneys, ureters, and bladder are unremarkable. Stable mild scattered aortoiliac calcifications. No AAA or pathologic retroperitoneal lymphadenopathy. Osseous structures intact again with mild degenerative changes throughout the thoracolumbar spine. Stable small fatty left inguinal hernia. Impression: 1. New markedly distended urinary bladder. Rule out outlet obstruction versus neurogenic bladder. 2. Stable enlarged prostate gland, left adrenal adenoma, right lower lobe noncalcified pulmonary nodule, fatty left inguinal hernia, and chronic bony findings.
[2020-05-31] MEDS ORDERED: GI COCKTAIL 45 ML (Maalox/Lidocaine) PO ONE (10:06)
[2020-05-31] MEDS ORDERED: PROTONIX 40 MG IV IV ONE ×2 (10:06→10:09)
[2020-05-31] MEDS ORDERED: MAALOX ES 30 ML UNIT DOSE ONE (10:11)
[2020-05-31] MEDS ORDERED: XYLOCAINE HCl Viscous ONE (10:11)
[2020-05-31 11:39] LABS: INFLUENZA A NEGATIVE (NEGATIVE); INFLUENZA B NEGATIVE (NEGATIVE); RESPIRATORY SYNCTIAL VIRUS NEGATIVE (Negative)
[2020-05-31] MEDS ORDERED: Zofran 4 MG/2 ML VIAL IV PRN ×2 (12:43→13:21)
[2020-05-31] MEDS ORDERED: MORPHINE SULFATE 2 MG INJ IV PRN (12:43)
--- NOTE | 2020-05-31 13:08 | PCM.HP ---
History of Present Illness - Chief Complaint Chief Complaint: c/o abdominal pain for 1-2 days History of Present Illness: is a 64 year old male.presents to our emergency department with complaints of nausea vomiting diarrhea and epigastric pain. Symptoms started last night. Patient correlates his symptoms with ingestion of salmon purchased at [employer]. Patient states no one else of the household is ill. Epigastric pain described as an ache that spans from the epigastrium to the right upper quadrant. Patient denies history of abdominal surgery. No associated fever. No trauma. No chest pain or shortness of breath. Symptoms are moderate in intensity. No specific worsening or improving factors. Patient denies history of the same. He voices no other complaints concerns at this time. - Review of Systems Constitutional: No Fever, No Chills Eyes: No Symptoms Ears, Nose, & Throat: No Symptoms Respiratory: No Cough, No Short Of Breath Cardiac: No Chest Pain, No Edema, No Syncope Abdominal/Gastrointestinal: Abdominal Pain, No Nausea, No Vomiting, No Diarrhea Genitourinary Symptoms: Dysuria, Hesitancy, Urinary Retention Musculoskeletal: No Back Pain, No Neck Pain Skin: No Rash Neurological: No Dizziness, No Focal Weakness, No Sensory Changes Psychological: No Symptoms Endocrine: No Symptoms Hematologic/Lymphatic: No Symptoms Immunological/Allergic: No Symptoms Medications & Allergies Home Medications: Home Medication List Insulin Glargine [Lantus Insulin] 25 units SQ BID 01/15/20 [History Confirmed 05/31/20] Pravastatin Sodium 40 mg PO DAILY 01/15/20 [History Confirmed 05/31/20] lisinopriL [Lisinopril] 5 mg PO DAILY 01/15/20 [History Confirmed 05/31/20] Allergies/Adverse Reactions: Allergies Allergy/AdvReac Type Severity Reaction Status Date / Time No Known Drug Allergies Allergy Verified 05/31/20 07:12 - Past Medical History Past Medical History: Yes Cardiac History: High Cholesterol, Hypertension Endocrine Medical History: Diabetes Type II - Past Surgical History Past Surgical History: No Musculskeletal Surgical Hx: Orthopedic Surgery Other Surgical History: R shoulder 2019 - Social History Smoking Status: Former smoker Exposure to second hand smoke: No Alcohol: None Drug Use: marijuana Significant Family History: no pertinent family hx - Physical Exam Vital Signs: Vital Signs - 24 hr Temp Pulse Resp BP Pulse Ox 05/31/20 13:00 97 F 80 18 212/102 98 05/31/20 12:50 97 F 80 18 212/102 98 05/31/20 12:08 16 196/100 97 05/31/20 11:07 83 20 174/90 99 05/31/20 10:42 99 05/31/20 10:19 78 20 187/94 99 05/31/20 09:08 76 16 180/91 97 05/31/20 08:00 78 16 138/94 98 05/31/20 07:07 97.6 F 80 20 200/100 99 General Appearance: no apparent distress, alert Neurologic Exam: alert, oriented x 3, cooperative, normal mood/affect, nml cerebellar function, nml station & gait, sensation nml, No motor deficits Eye Exam: PERRL/EOMI, eyes nml inspection Ears, Nose, Throat Exam: normal ENT inspection, TMs normal, pharynx normal, moist mucous membranes Neck Exam: normal inspection, non-tender, supple, full range of motion Respiratory Exam: normal breath sounds, lungs clear, No respiratory distress Cardiovascular Exam: regular rate/rhythm, normal heart sounds, normal peripheral pulses Gastrointestinal/Abdomen Exam: soft, tenderness, No mass, No guarding, No rebound Back Exam: normal inspection, normal range of motion, No CVA tenderness, No suzanne tebral tenderness Extremity Exam: normal inspection, normal range of motion, pelvis stable Skin Exam: normal color, warm, dry, No rash Lymphatic Exam: No adenopathy Results - Labs Lab/Micro Results: Lab Results-Last 24 Hours 05/31/20 05/31/20 05/31/20 Range/Units 07:30 07:30 07:30 WBC 11.3 H (4.0-10.5) K/mm3 RBC 5.25 (4.1-5.6) M/mm3 Hgb 15.2 (12.5-18.0) gm/dl Hct 46.4 (42-50) % MCV 88.4 (78-100) fl MCH 29.0 (26-32) pg MCHC 32.8 (32-36) g/dl RDW 12.8 (11.5-14.0) % Plt Count 175 (150-450) K/mm3 MPV 11.0 (7.5-11.0) fl Gran % 87.0 H (36.0-66.0) % Eos # (Auto) 0.04 (0-0.5) Absolute Lymphs (auto) 0.97 L (1.0-4.6) Absolute Monos (auto) 0.43 (0.0-1.3) Lymphocytes % 8.6 L (24.0-44.0) % Monocytes % 3.8 (0.0-12.0) % Eosinophils % 0.4 (0.00-5.0) % Basophils % 0.2 (0.0-0.4) % Absolute Granulocytes 9.86 H (1.4-6.9) Basophils # 0.02 (0-0.4) Sodium 141 (137-145) mmol/L Potassium 3.9 (3.5-5.1) mmol/L Chloride 105 (98-107) mmol/L Carbon Dioxide 23 (22-30) mmol/L Anion Gap 16.5 H (5-15) MEQ/L BUN 20 (9-20) mg/dL Creatinine 0.86 (0.66-1.25) mg/dL Estimated GFR > 60.0 ML/MIN Glucose 270 H (74-106) mg/dL Calcium 9.8 (8.4-10.2) mg/dL Magnesium (1.6-2.3) mg/dL Total Bilirubin 0.50 (0.2-1.3) mg/dL AST 39 (17-59) U/L ALT 33 (0-50) U/L Alkaline Phosphatase 173 H (38-126) U/L Troponin I < 0.012 (0.000-0.034) ng/mL Serum Total Protein 7.9 (6.3-8.2) g/dL Albumin 4.6 (3.5-5.0) g/dL Lipase 178 (23-300) U/L Urine Color (YELLOW) Urine Appearance (CLEAR) Urine pH (5-6) Ur Specific [place] (1.005-1.025) Urine Protein (Negative) Urine Ketones (NEGATIVE) Urine Blood (0-5) Shilo/ul Urine Nitrite (NEGATIVE) Urine Bilirubin (NEGATIVE) Urine Urobilinogen (0-1) mg/dL Ur Leukocyte Esterase (NEGATIVE) Urine WBC (Auto) (0-5) /HPF Urine RBC (Auto) (0-2) /HPF U Epithel Cells (Auto) (FEW) /HPF Urine Bacteria (Auto) (NEGATIVE) /HPF Urine Culture Reflexed (NO) Urine Glucose (NEGATIVE) mg/dL Influenza Type A Ag (NEGATIVE) Influenza Type B Ag (NEGATIVE) RSV (PCR) (Negative) SARS-CoV-2 (PCR) (NEGATIVE) 05/31/20 05/31/20 05/31/20 Range/Units 07:30 08:01 10:10 WBC (4.0-10.5) K/mm3 RBC (4.1-5.6) M/mm3 Hgb (12.5-18.0) gm/dl Hct (42-50) % MCV (78-100) fl MCH (26-32) pg MCHC (32-36) g/dl RDW (11.5-14.0) % Plt Count (150-450) K/mm3 MPV (7.5-11.0) fl Gran % (36.0-66.0) % Eos # (Auto) (0-0.5) Absolute Lymphs (auto) (1.0-4.6) Absolute Monos (auto) (0.0-1.3) Lymphocytes % (24.0-44.0) % Monocytes % (0.0-12.0) % Eosinophils % (0.00-5.0) % Basophils % (0.0-0.4) % Absolute Granulocytes (1.4-6.9) Basophils # (0-0.4) Sodium (137-145) mmol/L Potassium (3.5-5.1) mmol/L Chloride (98-107) mmol/L Carbon Dioxide (22-30) mmol/L Anion Gap (5-15) MEQ/L BUN (9-20) mg/dL Creatinine (0.66-1.25) mg/dL Estimated GFR ML/MIN Glucose (74-106) mg/dL Calcium (8.4-10.2) mg/dL Magnesium 2.0 (1.6-2.3) mg/dL Total Bilirubin (0.2-1.3) mg/dL AST (17-59) U/L ALT (0-50) U/L Alkaline Phosphatase (38-126) U/L Troponin I < 0.012 (0.000-0.034) ng/mL Serum Total Protein (6.3-8.2) g/dL Albumin (3.5-5.0) g/dL Lipase (23-300) U/L Urine Color STRAW (YELLOW) Urine Appearance CLEAR (CLEAR) Urine pH 8.0 (5-6) Ur Specific [place] 1.018 (1.005-1.025) Urine Protein 30 (Negative) Urine Ketones NEGATIVE (NEGATIVE) Urine Blood NEGATIVE (0-5) Shilo/ul Urine Nitrite NEGATIVE (NEGATIVE) Urine Bilirubin NEGATIVE (NEGATIVE) Urine Urobilinogen NEGATIVE (0-1) mg/dL Ur Leukocyte Esterase NEGATIVE (NEGATIVE) Urine WBC (Auto) NONE (0-5) /HPF Urine RBC (Auto) NONE (0-2) /HPF U Epithel Cells (Auto) NONE (FEW) /HPF Urine Bacteria (Auto) NONE (NEGATIVE) /HPF Urine Culture Reflexed NO (NO) Urine Glucose >=500 (NEGATIVE) mg/dL Influenza Type A Ag (NEGATIVE) Influenza Type B Ag (NEGATIVE) RSV (PCR) (Negative) SARS-CoV-2 (PCR) (NEGATIVE) 05/31/20 Range/Units 10:46 WBC (4.0-10.5) K/mm3 RBC (4.1-5.6) M/mm3 Hgb (12.5-18.0) gm/dl Hct (42-50) % MCV (78-100) fl MCH (26-32) pg MCHC (32-36) g/dl RDW (11.5-14.0) % Plt Count (150-450) K/mm3 MPV (7.5-11.0) fl Gran % (36.0-66.0) % Eos # (Auto) (0-0.5) Absolute Lymphs (auto) (1.0-4.6) Absolute Monos (auto) (0.0-1.3) Lymphocytes % (24.0-44.0) % Monocytes % (0.0-12.0) % Eosinophils % (0.00-5.0) % Basophils % (0.0-0.4) % Absolute Granulocytes (1.4-6.9) Basophils # (0-0.4) Sodium (137-145) mmol/L Potassium (3.5-5.1) mmol/L Chloride (98-107) mmol/L Carbon Dioxide (22-30) mmol/L Anion Gap (5-15) MEQ/L BUN (9-20) mg/dL Creatinine (0.66-1.25) mg/dL Estimated GFR ML/MIN Glucose (74-106) mg/dL Calcium (8.4-10.2) mg/dL Magnesium (1.6-2.3) mg/dL Total Bilirubin (0.2-1.3) mg/dL AST (17-59) U/L ALT (0-50) U/L Alkaline Phosphatase (38-126) U/L Troponin I (0.000-0.034) ng/mL Serum Total Protein (6.3-8.2) g/dL Albumin (3.5-5.0) g/dL Lipase (23-300) U/L Urine Color (YELLOW) Urine Appearance (CLEAR) Urine pH (5-6) Ur Specific [place] (1.005-1.025) Urine Protein (Negative) Urine Ketones (NEGATIVE) Urine Blood (0-5) Shilo/ul Urine Nitrite (NEGATIVE) Urine Bilirubin (NEGATIVE) Urine Urobilinogen (0-1) mg/dL Ur Leukocyte Esterase (NEGATIVE) Urine WBC (Auto) (0-5) /HPF Urine RBC (Auto) (0-2) /HPF U Epithel Cells (Auto) (FEW) /HPF Urine Bacteria (Auto) (NEGATIVE) /HPF Urine Culture Reflexed (NO) Urine Glucose (NEGATIVE) mg/dL Influenza Type A Ag NEGATIVE (NEGATIVE) Influenza Type B Ag NEGATIVE (NEGATIVE) RSV (PCR) NEGATIVE (Negative) SARS-CoV-2 (PCR) NEGATIVE (NEGATIVE) - Radiology Impressions Radiology Exams & Impressions: Radiology Procedures Category Date Time Status ABDOMEN AND PELVIS W CONTRAST [CT] Stat Exams 05/31/20 07:[address]/ABDOMEN AND PELVIS W CONTRAST Indication: Abdominal pain, nausea, and vomiting. Difficulty urinating. Multiple contiguous axial images obtained through the abdomen and pelvis using 80 cc Isovue 370 contrast. Comparison: January 15, 2020. Lung bases demonstrate stable 11 mm medial right lower lobe noncalcified nodule. No infiltrate or effusion. Heart is not enlarged. Noncontrasted stomach and bowel loops nonobstructed. Normal appendix. No free fluid/air. Stable small left adrenal adenoma and enlarged prostate gland impressing on the base of the bladder. Urinary bladder is now markedly distended either due to outlet obstruction versus neurogenic bladder. Remaining liver, gallbladder, pancreas, spleen, adrenal glands, kidneys, ureters, and bladder are unremarkable. Stable mild scattered aortoiliac calcifications. No AAA or pathologic retroperitoneal lymphadenopathy. Osseous structures intact again with mild degenerative changes throughout the thoracolumbar spine. Stable small fatty left inguinal hernia. Impression: 1. New markedly distended urinary bladder. Rule out outlet obstruction versus neurogenic bladder. 2. Stable enlarged prostate gland, left adrenal adenoma, right lower lobe noncalcified pulmonary nodule, fatty left inguinal hernia, and chronic bony findings. Assessment/Plan (1) Distended bladder Current Visit: Yes Status: Acute Code(s): N32.89 - OTHER SPECIFIED DISORDERS OF BLADDER (2) Epigastric pain Current Visit: Yes Status: Acute Code(s): R10.13 - EPIGASTRIC PAIN (3) Incidental lung nodule, greater than or equal to 8mm Current Visit: Yes Status: Acute Code(s): R91.1 - SOLITARY PULMONARY NODULE (4) Nausea and vomiting Current Visit: Yes Status: Acute Code(s): R11.2 - NAUSEA WITH VOMITING, UNSPECIFIED (5) Prostate hypertrophy Current Visit: Yes Status: Acute Code(s): N40.0 - BENIGN PROSTATIC HYPERPLASIA WITHOUT LOWER URINRY TRACT SYMP (6) Right upper quadrant abdominal pain Current Visit: No Status: Acute Code(s): R10.11 - RIGHT UPPER QUADRANT PAIN
[2020-05-31] MEDS: Sodium Chloride 0.9% 1000 ML 1,000 ML IV SCH ×2 (13:09→22:49)
[2020-05-31] MEDS ORDERED: HUMALOG SQ PRN (13:21)
[2020-05-31] MEDS: TRANDATE 20 MG/4 ML SYRINGE IV PRN ×2 (13:29→14:05)
[2020-05-31] MEDS: Zestril 5 MG PO SCH (13:56)
[2020-05-31] MEDS: ZOCOR 20MG PO SCH (14:16)
[2020-05-31] MEDS: Lantus Insulin SQ SCH (21:55)
[2020-06-01 04:40] LABS: Absolute Neutrophil Ct (ANC) 11.42 (1.4-6.9); BASOPHIL % 0.1 % (0.0-0.4); Basophil (Absolute #) 0.02 (0-0.4); Eosinophil % 0.4 % (0.00-5.0); Eosinophil (Absolute #) 0.06 (0-0.5); Hematocrit 42.2 % (42-50); Hemoglobin 13.6 gm/dl (12.5-18.0); Lymphocyte (Absolute #) 2.52 (1.0-4.6); Lymphocytes % 16.7 % (24.0-44.0); Mean Cell Volume 88.5 fl (78-100); Mean Corpuscular Hemoglobin 28.5 pg (26-32); Mean Corpuscular Hgb Concent. 32.2 g/dl (32-36); Mean Platelet Volume 10.8 fl (7.5-11.0); Monocyte (Absolute #) 1.03 (0.0-1.3); Monocytes % 6.8 % (0.0-12.0); Platelet Count 219 K/mm3 (150-450); Red Blood Count 4.77 M/mm3 (4.1-5.6); Red Cell Distribution Width 13.2 % (11.5-14.0); White Blood Count 15.1 K/mm3 (4.0-10.5)
[2020-06-01 04:55] LABS: ALBUMIN 3.9 g/dL (3.5-5.0); ALKALINE PHOSPHATASE 109 U/L (38-126); ANION GAP 11.2 MEQ/L (5-15); BLOOD UREA NITROGEN 19 mg/dL (9-20); CHLORIDE 104 mmol/L (98-107); Calcium 9.2 mg/dL (8.4-10.2); Carbon Dioxide 25 mmol/L (22-30); Creatinine 1 0.93 mg/dL (0.66-1.25); EST GLOMERULAR FILTRATION RATE > 60.0 ML/MIN; Glucose 183 mg/dL (74-106); Potassium 3.8 mmol/L (3.5-5.1); SGOT/AST 26 U/L (17-59); SGPT/ALT 23 U/L (0-50); SODIUM 137 mmol/L (137-145)
[2020-06-01] MEDS: Sodium Chloride 0.9% 1000 ML 1,000 ML IV SCH (08:37)
[2020-06-01] MEDS ORDERED: PROTONIX 40 MG IV IV SCH (10:00)
[2020-06-01] MEDS ORDERED: NON-FORMULARY ITEM (Pravastatin Sodium [Pravastatin Sodium] 40 MG) PO SCH (10:00)
[2020-06-01] MEDS: Lantus Insulin SQ SCH (10:18)
[2020-06-01] MEDS: Zestril 5 MG PO SCH (10:21)
[2020-06-01] MEDS: ZOCOR 20MG PO SCH (10:22)
[2020-06-01 11:46] VITALS: BP 143/75; PULSE 81; O2SAT 96
--- NOTE | 2020-06-01 13:55 | PCM.DS ---
Discharge Summary Date of Admission: 05/31/20 12:38 Admitting Physician: GRZEGORZ JOHNSON Primary Care Provider: GRZEGORZ JOHNSON Allergies Allergies No Known Drug Allergies Allergy (Verified 05/31/20 07:12) Hospital Summary - Hospital Course Hospital Course: Chief Complaint Diagnosis c/o abdominal pain for 1-2 days Allergies Allergy/AdvReac Type Severity Reaction Status Date / Time No Known Drug Allergies Allergy Verified 05/31/20 07:12 Vital Signs (Last 24 hours) Temp Pulse Resp BP Pulse Ox 06/01/20 11:46 98.6 F 81 16 143/75 96 06/01/20 07:30 97.9 F 76 16 133/69 97 06/01/20 04:00 99.0 F 80 18 122/64 95 05/31/20 23:41 100.0 F 89 18 127/61 96 05/31/20 19:59 99.9 F 92 H 20 136/74 96 05/31/20 16:00 98.8 F 90 16 142/74 97 05/31/20 14:25 79 171/83 05/31/20 14:00 81 184/87 Home Medications Medication Instructions Recorded Confirmed Last Taken Type Tamsulosin HCl 0.4 mg [Flomax 0.4 mg PO DAILY #30 cap 06/01/20 Unknown Rx 0.4 MG] Current Medications Generic Name Dose Route Start Last Admin Trade Name Freq PRN Reason Stop Dose Admin Sodium Chloride 1,000 mls @ 100 mls/hr 05/31/20 12:43 06/01/20 08:37 Sodium Chloride 0.9% 1000 Ml IV 06/30/20 12:42 100 mls/hr .Q10H SWATI Administration Insulin Glargine 50 unit 05/31/20 22:00 06/01/20 10:18 Lantus Insulin SQ 06/30/20 21:59 25 unit BID SWATI Administration Insulin Human Lispro 0 unit 05/31/20 13:21 06/01/20 12:40 Humalog SQ 06/30/20 13:20 2 unit UD PRN Administration HYPERGLYCEMIA Labetalol HCl 10 mg 05/31/20 13:20 05/31/20 14:05 Trandate 20 Mg/4 Ml Syringe IV 06/30/20 13:19 10 mg PRN PRN Administration HYPERTENSION Lisinopril 5 mg 05/31/20 14:00 06/01/20 10:21 Zestril 5 Mg PO 06/30/20 13:59 5 mg DAILY SWATI Administration Morphine Sulfate 2 mg 05/31/20 12:43 05/31/20 13:09 Morphine Sulfate 2 Mg Inj IV 06/05/20 12:42 2 mg Q4H PRN PRN Administration PAIN Ondansetron HCl 4 mg 05/31/20 13:21 Zofran 4 Mg/2 Ml Vial IV 06/30/20 13:20 Q4H/PRN PRN NAUSEA/VOMITING Pantoprazole Sodium 40 mg 06/01/20 10:00 06/01/20 10:15 Protonix 40 Mg Iv IV 07/01/20 09:59 40 mg Q24H10 SWATI Administration Simvastatin 40 mg 05/31/20 14:00 06/01/20 10:22 Zocor 20mg PO 06/30/20 13:59 40 mg DAILY SWATI Administration Discontinued Medications Generic Name Dose Route Start Last Admin Trade Name Freq PRN Reason Stop Dose Admin Al Hydrox/Mg Hydrox/Simethicone Confirm 05/31/20 10:11 Maalox Es 30 Ml Unit Dose Administered 05/31/20 10:12 Dose 30 ml .ROUTE .STK-MED ONE Sodium Chloride 1,000 mls @ 100 mls/hr 05/31/20 07:15 05/31/20 07:29 Sodium Chloride 0.9% 1000 Ml IV 06/30/20 07:14 100 mls/hr .Q10H SWATI Administration Sodium Chloride Confirm 05/31/20 07:23 Sodium Chloride 0.9% 1000 Ml Administered 05/31/20 07:24 Dose 1,000 mls @ ud .ROUTE .STK-MED ONE Lidocaine HCl Confirm 05/31/20 10:11 Xylocaine Hcl Viscous * Administered 05/31/20 10:12 Dose 1 ml .ROUTE .STK-MED ONE Magnesium Hydroxide 45 ml 05/31/20 10:06 05/31/20 10:15 Gi Cocktail 45 Ml (Maalox/Lidocaine) PO 05/31/20 10:07 45 ml STAT ONE Administration Morphine Sulfate 2 mg 05/31/20 07:14 05/31/20 07:29 Morphine Sulfate 2 Mg Inj IV 05/31/20 07:15 2 mg STAT ONE Administration Morphine Sulfate Confirm 05/31/20 07:23 Morphine Sulfate 4 Mg Inj Administered 05/31/20 07:24 Dose 4 mg .ROUTE .STK-MED ONE Morphine Sulfate Confirm 05/31/20 07:28 Morphine Sulfate 2 Mg Inj Administered 05/31/20 07:29 Dose 2 mg .ROUTE .STK-MED ONE Morphine Sulfate 4 mg 05/31/20 07:53 05/31/20 07:58 Morphine Sulfate 4 Mg Inj IV 05/31/20 07:54 4 mg STAT ONE Administration Morphine Sulfate Confirm 05/31/20 07:57 Morphine Sulfate 4 Mg Inj Administered 05/31/20 07:58 Dose 4 mg .ROUTE .STK-MED ONE Ondansetron HCl 4 mg 05/31/20 07:14 05/31/20 07:30 Zofran 4 Mg/2 Ml Vial IV 05/31/20 07:15 Not Given STAT ONE Ondansetron HCl 2 mg 05/31/20 12:43 05/31/20 13:08 Zofran 4 Mg/2 Ml Vial IV 06/30/20 12:42 4 mg Q6H PRN PRN Administration NAUSEA/VOMITING Pantoprazole Sodium 40 mg 05/31/20 10:06 05/31/20 10:14 Protonix 40 Mg Iv IV 05/31/20 10:07 40 mg STAT ONE Administration Pantoprazole Sodium Confirm 05/31/20 10:09 Protonix 40 Mg Iv Administered 05/31/20 10:10 Dose 40 mg IV .STK-MED ONE Intake & Output (Last 24 hours) 05/30/20 05/31/20 06/01/20 06/02/20 11:59 11:59 11:59 11:59 Intake Total 2544 Output Total 500 2755 550 Balance -500 769 -550 Weight 84 kg 81.7 kg Microbiology Results (Last 24 hours) 05/31/20 11:00 Catherized Urine Culture - Preliminary NO GROWTH TO DATE Laboratory Results (Last 24 hours) 06/01/20 06/01/20 06/01/20 11:33 10:28 06:57 WBC RBC Hgb Hct MCV MCH MCHC RDW Plt Count MPV Gran % Eos # (Auto) Absolute Lymphs (auto) Absolute Monos (auto) Lymphocytes % Monocytes % Eosinophils % Basophils % Absolute Granulocytes Basophils # Sodium Potassium Chloride Carbon Dioxide Anion Gap BUN Creatinine Estimated GFR Glucose POC Glucometer 217 H 154 H Hemoglobin A1c Calcium Total Bilirubin AST ALT Alkaline Phosphatase Troponin I 0.029 Serum Total Protein Albumin 06/01/20 06/01/20 06/01/20 04:25 04:25 04:15 WBC 15.1 H RBC 4.77 Hgb 13.6 Hct 42.2 MCV 88.5 MCH 28.5 MCHC 32.2 RDW 13.2 Plt Count 219 MPV 10.8 Gran % 76.0 H Eos # (Auto) 0.06 Absolute Lymphs (auto) 2.52 Absolute Monos (auto) 1.03 Lymphocytes % 16.7 L Monocytes % 6.8 Eosinophils % 0.4 Basophils % 0.1 Absolute Granulocytes 11.42 H Basophils # 0.02 Sodium 137 Potassium 3.8 Chloride 104 Carbon Dioxide 25 Anion Gap 11.2 BUN 19 Creatinine 0.93 Estimated GFR > 60.0 Glucose 183 H POC Glucometer Hemoglobin A1c Calcium 9.2 Total Bilirubin 0.70 AST 26 ALT 23 Alkaline Phosphatase 109 Troponin I 0.050 H* Serum Total Protein 7.0 Albumin 3.9 05/31/20 05/31/20 05/31/20 Unknown 20:55 20:30 WBC RBC Hgb Hct MCV MCH MCHC RDW Plt Count MPV Gran % Eos # (Auto) Absolute Lymphs (auto) Absolute Monos (auto) Lymphocytes % Monocytes % Eosinophils % Basophils % Absolute Granulocytes Basophils # Sodium Potassium Chloride Carbon Dioxide Anion Gap BUN Creatinine Estimated GFR Glucose POC Glucometer 198 H Hemoglobin A1c 8.74 H Calcium Total Bilirubin AST ALT Alkaline Phosphatase Troponin I 0.064 H* Serum Total Protein Albumin 05/31/20 05/31/20 16:25 16:21 WBC RBC Hgb Hct MCV MCH MCHC RDW Plt Count MPV Gran % Eos # (Auto) Absolute Lymphs (auto) Absolute Monos (auto) Lymphocytes % Monocytes % Eosinophils % Basophils % Absolute Granulocytes Basophils # Sodium Potassium Chloride Carbon Dioxide Anion Gap BUN Creatinine Estimated GFR Glucose POC Glucometer 199 H Hemoglobin A1c Calcium Total Bilirubin AST ALT Alkaline Phosphatase Troponin I 0.056 H* Serum Total Protein Albumin Orders (Last 24 hours) Category Date Time Status BARAKAT [Discontinue Barakat Cath] ROUTINE Care 06/01/20 12:49 Active POCT Glucose Check ACHS Care 05/31/20 15:41 Active Infection Control Consult ROUTINE Cons 05/31/20 21:07 Completed [place] Diet Diet 06/01/20 Lunch Active Discharge Routine Discharge 06/01/20 Ordered CBC W DIFF AM.LAB Lab 06/01/20 04:25 Completed CMP AM.LAB Lab 06/01/20 04:25 Completed POCT GLUCOSE Stat Lab 05/31/20 16:21 Completed POCT GLUCOSE Stat Lab 05/31/20 20:55 Completed POCT GLUCOSE Stat Lab 06/01/20 06:57 Completed POCT GLUCOSE Stat Lab 06/01/20 11:33 Completed TROPONIN Q3H Lab 05/31/20 13:05 Completed TROPONIN Q3H Lab 05/31/20 16:25 Completed TROPONIN Q3H Lab 05/31/20 20:30 Completed TROPONIN Routine Lab 06/01/20 04:15 Completed TROPONIN Stat Lab 06/01/20 10:28 Completed Insulin Glargine [Lantus Insulin] Med 05/31/20 22:00 Active 50 unit SQ BID Insulin Lispro [Humalog] Med 05/31/20 13:21 Active See Dose Instructions SQ UD PRN Labetalol HCl 20 mg/4 ml [Trandate 20 mg/4 ml Med 05/31/20 13:20 Active Syringe] 10 mg IV PRN PRN Lisinopril 5 mg [Zestril 5 MG] Med 05/31/20 14:00 Active 5 mg PO DAILY Ondansetron HCl 4 mg/2 ml [Zofran 4 MG/2 ML VIAL] Med 05/31/20 13:21 Active 4 mg IV Q4H/PRN PRN Pantoprazole 40 mg [Protonix 40 mg IV] Med 06/01/20 10:00 Active 40 mg IV Q24H10 Simvastatin 20Mg [Zocor 20Mg] Med 05/31/20 14:00 Active 40 mg PO DAILY Patient Care Notes (Last 24 hours) 06/01/20 13:43 Nursing Note by Sharron Ferrari FAXED DISCHARGE RECORDS TO DR HIGGINBOTHAM 06/01/20 @ [facility]. FAXED DISCHARGE RECORDS TO DR THOMPSON 06/01/20 @ 133Jong,BONNIE. Initialized on 06/01/20 13:43 - END OF NOTE 05/31/20 22:05 SBAR Note by Anca Blake SITUATION I am calling about RICK Gigi TAPIA the patient's code status is Full Code The problem I am calling about is: Elevated Troponin 0.064 ASSESSMENT No chest pain, no shortness of breath, NSR on Tele RECOMMENDATION Repeat troponin in AM Physician notified at 2205 New Orders received: Vital Signs (Last 4 hours) Temp Pulse Resp BP Pulse Ox 05/31/20 19:59 99.9 F 92 H 20 136/74 96 Diagnois, Code Status Date of Arrival on Unit 05/31/20 Admitted From Emergency Dept Diagnosis c/o abdominal pain for 1-2 days Resucitation Status Full Code Intake and Output 12 Hours 05/31/20 06/01/20 18:59 06:59 Intake Total 594 100 Output Total 600 Balance -6 100 Weight 81.7 kg Intake: Intake, Oral Amount 200 100 Intake, IV Amount 394 Output: Output, Urine Amount 500 Output, Emesis Amount 100 Physical Assessment Anxiety Level None,at ease,Awake,Calm Mental Status Alert Patient Orientation Person,Place,Time Coma Scale Total 15 Breath Sounds [Anterior/ Clear Posterior Throughout] Cardiac Rhythm-[facility] Sinus Rhythm Bowel Sounds [All Quadrants] Present,Hyperactive Abdomen Description Soft,Large,Non-Tender Date Barakat Cath Inserted 05/31 Urine Appearance Clear Urine Color Pale,Yellow Skin Color Normal for Race Skin Temperature Warm Pain Scale (Last 12 Hours) Pain Intensity 0 Pain Intensity 0 Pain Intensity 0 Pain Intensity 4 Pain Intensity 4 Pain Intensity 4 Pain Intensity 4 Pain Intensity 4 Pain Intensity 4 Pain Intensity 4 PAST MEDICAL HISTORY Endocrine Medical History Diabetes Type II Cardiac History High Cholesterol,Hypertension Diabetic (Last 12 Hours) Time 16:25 POCT Glucose (LAST VALUE) {198 mg/dL (74 to 106) H} POCT Glucose (LAST VALUE) {199 mg/dL (74 to 106) H} Diet Order (Last 12 Hours) 05/31/20 Lunch Clear Liquid Lab Results (Last 12 Hours) 05/31/20 05/31/20 05/31/20 Range/Units Unknown 20:55 20:30 POC Glucometer 198 H (74 to 106) mg/dL Hemoglobin A1c 8.74 H (4.5-6.0) % Troponin I 0.064 H* (0.000-0.034) ng/mL Influenza Type A Ag (NEGATIVE) Influenza Type B Ag (NEGATIVE) RSV (PCR) (Negative) SARS-CoV-2 (PCR) (NEGATIVE) 05/31/20 05/31/20 05/31/20 Range/Units 16:25 16:21 13:05 POC Glucometer 199 H (74 to 106) mg/dL Hemoglobin A1c (4.5-6.0) % Troponin I 0.056 H* 0.027 (0.000-0.034) ng/mL Influenza Type A Ag (NEGATIVE) Influenza Type B Ag (NEGATIVE) RSV (PCR) (Negative) SARS-CoV-2 (PCR) (NEGATIVE) 05/31/20 05/31/20 Range/Units 10:46 10:10 POC Glucometer (74 to 106) mg/dL Hemoglobin A1c (4.5-6.0) % Troponin I < 0.012 (0.000-0.034) ng/mL Influenza Type A Ag NEGATIVE (NEGATIVE) Influenza Type B Ag NEGATIVE (NEGATIVE) RSV (PCR) NEGATIVE (Negative) SARS-CoV-2 (PCR) NEGATIVE (NEGATIVE) Microbiology Results (Last 12 Hours) 05/31/20 11:00 Urine Culture - Pending Catherized Orders (Last 12 Hours) Category Date Time Status Up With Assistance ROUTINE Activity 05/31/20 12:43 Active Code Status Order ROUTINE Care 05/31/20 12:43 Active IV Care Q6H Care 05/31/20 12:43 Active POCT Glucose Check ACHS Care 05/31/20 15:[address] in Observation ROUTINE Care 05/31/20 12:43 Active Telemetry q6h Care 05/31/20 12:43 Active Infection Control Consult ROUTINE Cons 05/31/20 21:07 Active Clear Liquid Diet 05/31/20 Lunch Active CBC W DIFF AM.LAB Lab 06/01/20 04:00 Ordered CMP AM.LAB Lab 06/01/20 04:00 Ordered CULTURE,URINE Stat Lab 05/31/20 11:00 Received Insulin Glargine [Lantus Insulin] Med 05/31/20 22:00 Active 50 unit SQ BID Insulin Lispro [Humalog] Med 05/31/20 13:21 Active See Dose Instructions SQ UD PRN Labetalol HCl 20 mg/4 ml [Trandate 20 mg/4 ml Med 05/31/20 13:20 Active Syringe] 10 mg IV PRN PRN Lisinopril 5 mg [Zestril 5 MG] Med 05/31/20 14:00 Active 5 mg PO DAILY Morphine Sulfate 2 mg Inj Med 05/31/20 12:43 Active 2 mg IV Q4H PRN PRN NaCl 0.9% 1000 ml [Sodium Chloride 0.9% 1000 ML] 1,000 Med 05/31/20 12:43 Active ml IV 100 mls/hr Ondansetron HCl 4 mg/2 ml [Zofran 4 MG/2 ML VIAL] Med 05/31/20 13:21 Active 4 mg IV Q4H/PRN PRN Pantoprazole 40 mg [Protonix 40 mg IV] Med 06/01/20 10:00 Active 40 mg IV Q24H10 Simvastatin 20Mg [Zocor 20Mg] Med 05/31/20 14:00 Active 40 mg PO DAILY Active Visit Medications Generic Name Dose Route Start Last Admin Trade Name Freq PRN Reason Stop Dose Admin Sodium Chloride 1,000 mls @ 100 mls/hr 05/31/20 12:43 05/31/20 13:09 Sodium Chloride 0.9% 1000 Ml IV 06/30/20 12:42 100 mls/hr .Q10H SWATI Administration Insulin Glargine 50 unit 05/31/20 22:00 05/31/20 21:55 Lantus Insulin SQ 06/30/20 21:59 Not Given BID SWATI Insulin Human Lispro 0 unit 05/31/20 13:21 Humalog SQ 06/30/20 13:20 UD PRN HYPERGLYCEMIA Labetalol HCl 10 mg 05/31/20 13:20 05/31/20 14:05 Trandate 20 Mg/4 Ml Syringe IV 06/30/20 13:19 10 mg PRN PRN Administration HYPERTENSION Lisinopril 5 mg 05/31/20 14:00 05/31/20 13:56 Zestril 5 Mg PO 06/30/20 13:59 Not Given DAILY SWATI Morphine Sulfate 2 mg 05/31/20 12:43 05/31/20 13:09 Morphine Sulfate 2 Mg Inj IV 06/05/20 12:42 2 mg Q4H PRN PRN Administration PAIN Ondansetron HCl 4 mg 05/31/20 13:21 Zofran 4 Mg/2 Ml Vial IV 06/30/20 13:20 Q4H/PRN PRN NAUSEA/VOMITING Pantoprazole Sodium 40 mg 06/01/20 10:00 Protonix 40 Mg Iv IV 07/01/20 09:59 Q24H10 SWATI Simvastatin 40 mg 05/31/20 14:00 05/31/20 14:16 Zocor 20mg PO 06/30/20 13:59 Not Given DAILY SWATI Initialized on 05/31/20 22:05 - END OF NOTE - Vitals & Intake/Output Vital Signs: Vital Signs Temperature 98.6 F 06/01/20 11:46 Pulse Rate 81 06/01/20 11:46 Respiratory Rate 16 06/01/20 11:46 Blood Pressure 143/75 06/01/20 11:46 O2 Sat by Pulse Oximetry 96 06/01/20 11:46 Intake & Output: Intake & Output 05/30/20 05/31/20 06/01/20 06/02/20 11:59 11:59 11:59 11:59 Intake Total 2544 Output Total 500 1775 550 Balance -500 769 -550 Weight 84 kg 81.7 kg - Lab Result Diagrams: 06/01/20 04:25 06/01/20 04:25 Lab Results-Last 24 Hrs: Lab Results-Last 24 Hours 05/31/20 05/31/20 05/31/20 Range/Units 16:21 16:25 20:30 WBC (4.0-10.5) K/mm3 RBC (4.1-5.6) M/mm3 Hgb (12.5-18.0) gm/dl Hct (42-50) % MCV (78-100) fl MCH (26-32) pg MCHC (32-36) g/dl RDW (11.5-14.0) % Plt Count (150-450) K/mm3 MPV (7.5-11.0) fl Gran % (36.0-66.0) % Eos # (Auto) (0-0.5) Absolute Lymphs (auto) (1.0-4.6) Absolute Monos (auto) (0.0-1.3) Lymphocytes % (24.0-44.0) % Monocytes % (0.0-12.0) % Eosinophils % (0.00-5.0) % Basophils % (0.0-0.4) % Absolute Granulocytes (1.4-6.9) Basophils # (0-0.4) Sodium (137-145) mmol/L Potassium (3.5-5.1) mmol/L Chloride (98-107) mmol/L Carbon Dioxide (22-30) mmol/L Anion Gap (5-15) MEQ/L BUN (9-20) mg/dL Creatinine (0.66-1.25) mg/dL Estimated GFR ML/MIN Glucose (74-106) mg/dL POC Glucometer 199 H (74 to 106) mg/dL Hemoglobin A1c (4.5-6.0) % Calcium (8.4-10.2) mg/dL Total Bilirubin (0.2-1.3) mg/dL AST (17-59) U/L ALT (0-50) U/L Alkaline Phosphatase (38-126) U/L Troponin I 0.056 H* 0.064 H* (0.000-0.034) ng/mL Serum Total Protein (6.3-8.2) g/dL Albumin (3.5-5.0) g/dL 05/31/20 05/31/20 06/01/20 Range/Units 20:55 Unknown 04:15 WBC (4.0-10.5) K/mm3 RBC (4.1-5.6) M/mm3 Hgb (12.5-18.0) gm/dl Hct (42-50) % MCV (78-100) fl MCH (26-32) pg MCHC (32-36) g/dl RDW (11.5-14.0) % Plt Count (150-450) K/mm3 MPV (7.5-11.0) fl Gran % (36.0-66.0) % Eos # (Auto) (0-0.5) Absolute Lymphs (auto) (1.0-4.6) Absolute Monos (auto) (0.0-1.3) Lymphocytes % (24.0-44.0) % Monocytes % (0.0-12.0) % Eosinophils % (0.00-5.0) % Basophils % (0.0-0.4) % Absolute Granulocytes (1.4-6.9) Basophils # (0-0.4) Sodium (137-145) mmol/L Potassium (3.5-5.1) mmol/L Chloride (98-107) mmol/L Carbon Dioxide (22-30) mmol/L Anion Gap (5-15) MEQ/L BUN (9-20) mg/dL Creatinine (0.66-1.25) mg/dL Estimated GFR ML/MIN Glucose (74-106) mg/dL POC Glucometer 198 H (74 to 106) mg/dL Hemoglobin A1c 8.74 H (4.5-6.0) % Calcium (8.4-10.2) mg/dL Total Bilirubin (0.2-1.3) mg/dL AST (17-59) U/L ALT (0-50) U/L Alkaline Phosphatase (38-126) U/L Troponin I 0.050 H* (0.000-0.034) ng/mL Serum Total Protein (6.3-8.2) g/dL Albumin (3.5-5.0) g/dL 06/01/20 06/01/20 06/01/20 Range/Units 04:25 04:25 06:57 WBC 15.1 H (4.0-10.5) K/mm3 RBC 4.77 (4.1-5.6) M/mm3 Hgb 13.6 (12.5-18.0) gm/dl Hct 42.2 (42-50) % MCV 88.5 (78-100) fl MCH 28.5 (26-32) pg MCHC 32.2 (32-36) g/dl RDW 13.2 (11.5-14.0) % Plt Count 219 (150-450) K/mm3 MPV 10.8 (7.5-11.0) fl Gran % 76.0 H (36.0-66.0) % Eos # (Auto) 0.06 (0-0.5) Absolute Lymphs (auto) 2.52 (1.0-4.6) Absolute Monos (auto) 1.03 (0.0-1.3) Lymphocytes % 16.7 L (24.0-44.0) % Monocytes % 6.8 (0.0-12.0) % Eosinophils % 0.4 (0.00-5.0) % Basophils % 0.1 (0.0-0.4) % Absolute Granulocytes 11.42 H (1.4-6.9) Basophils # 0.02 (0-0.4) Sodium 137 (137-145) mmol/L Potassium 3.8 (3.5-5.1) mmol/L Chloride 104 (98-107) mmol/L Carbon Dioxide 25 (22-30) mmol/L Anion Gap 11.2 (5-15) MEQ/L BUN 19 (9-20) mg/dL Creatinine 0.93 (0.66-1.25) mg/dL Estimated GFR > 60.0 ML/MIN Glucose 183 H (74-106) mg/dL POC Glucometer 154 H (74 to 106) mg/dL Hemoglobin A1c (4.5-6.0) % Calcium 9.2 (8.4-10.2) mg/dL Total Bilirubin 0.70 (0.2-1.3) mg/dL AST 26 (17-59) U/L ALT 23 (0-50) U/L Alkaline Phosphatase 109 (38-126) U/L Troponin I (0.000-0.034) ng/mL Serum Total Protein 7.0 (6.3-8.2) g/dL Albumin 3.9 (3.5-5.0) g/dL 06/01/20 06/01/20 Range/Units 10:28 11:33 WBC (4.0-10.5) K/mm3 RBC (4.1-5.6) M/mm3 Hgb (12.5-18.0) gm/dl Hct (42-50) % MCV (78-100) fl MCH (26-32) pg MCHC (32-36) g/dl RDW (11.5-14.0) % Plt Count (150-450) K/mm3 MPV (7.5-11.0) fl Gran % (36.0-66.0) % Eos # (Auto) (0-0.5) Absolute Lymphs (auto) (1.0-4.6) Absolute Monos (auto) (0.0-1.3) Lymphocytes % (24.0-44.0) % Monocytes % (0.0-12.0) % Eosinophils % (0.00-5.0) % Basophils % (0.0-0.4) % Absolute Granulocytes (1.4-6.9) Basophils # (0-0.4) Sodium (137-145) mmol/L Potassium (3.5-5.1) mmol/L Chloride (98-107) mmol/L Carbon Dioxide (22-30) mmol/L Anion Gap (5-15) MEQ/L BUN (9-20) mg/dL Creatinine (0.66-1.25) mg/dL Estimated GFR ML/MIN Glucose (74-106) mg/dL POC Glucometer 217 H (74 to 106) mg/dL Hemoglobin A1c (4.5-6.0) % Calcium (8.4-10.2) mg/dL Total Bilirubin (0.2-1.3) mg/dL AST (17-59) U/L ALT (0-50) U/L Alkaline Phosphatase (38-126) U/L Troponin I 0.029 (0.000-0.034) ng/mL Serum Total Protein (6.3-8.2) g/dL Albumin (3.5-5.0) g/dL Micro Results-Entire Visit: Microbiology 05/31/20 11:00 Urine Culture - Preliminary Catherized NO GROWTH TO DATE Accuchecks Date 06/01/20 Date 06/01/20 Date 05/31/20 Time 16:25 - Radiology Exams Ordered Rad Exams-Entire Visit: Radiology Procedures Category Date Time Status ABDOMEN AND PELVIS W CONTRAST [CT] Stat Exams 05/31/20 07:15 Completed Discharge Exam General Appearance: no apparent distress, alert Neurologic Exam: alert, oriented x 3, cooperative, normal mood/affect, nml cerebellar function, sensation nml, No motor deficits Eye Exam: PERRL, EOMI, eyes nml inspection Ears, Nose, Throat Exam: normal ENT inspection, pharynx normal, moist mucous membranes Neck Exam: normal inspection, non-tender, supple, full range of motion Respiratory Exam: normal breath sounds, lungs clear, No respiratory distress Cardiovascular Exam: regular rate/rhythm, normal heart sounds Gastrointestinal/Abdomen Exam: soft, No tenderness, No mass Male Genitalia Exam: deferred Rectal Exam: deferred Back Exam: normal inspection, normal range of motion, No CVA tenderness, No vertebral tenderness Extremity Exam: normal inspection, normal range of motion Skin Exam: normal color, warm, dry Final Diagnosis/Problem List - Final Discharge Diagnosis/Problem (1) Distended bladder Current Visit: Yes Status: Resolved Code(s): N32.89 - OTHER SPECIFIED DISORDERS OF BLADDER (2) Epigastric pain Current Visit: Yes Status: Resolved Code(s): R10.13 - EPIGASTRIC PAIN (3) Incidental lung nodule, greater than or equal to 8mm Current Visit: Yes Status: Acute Code(s): R91.1 - SOLITARY PULMONARY NODULE (4) Nausea and vomiting Current Visit: Yes Status: Acute Code(s): R11.2 - NAUSEA WITH VOMITING, UNSPECIFIED (5) Prostate hypertrophy Current Visit: Yes Status: Acute Code(s): N40.0 - BENIGN PROSTATIC HYPERPLASIA WITHOUT LOWER URINRY TRACT SYMP (6) Right upper quadrant abdominal pain Current Visit: Yes Status: Resolved Code(s): R10.11 - RIGHT UPPER QUADRANT PAIN (7) Type 2 diabetes mellitus Current Visit: Yes Status: Acute - Discharge Discharge Date: 06/01/20 Disposition: Home, Self-Care Condition: Stable Prescriptions: New Tamsulosin HCl 0.4 mg [Flomax 0.4 MG] 0.4 mg PO DAILY #30 cap No Action lisinopriL [Lisinopril] 5 mg PO DAILY Pravastatin Sodium 40 mg PO DAILY Insulin Glargine [Lantus Insulin] 50 units SQ BID Follow up with: KRISTOFER THOMPSON [COURTESY STAFF] - 06/28/20 3:45 pm GRZEGORZ JOHNSON MD [Primary Care Provider] - 06/09/20 2:00 pm DENNIS HIGGINBOTHAM [COURTESY STAFF] - 06/16/20 9:20 am
== END 2020-06-01 14:20 | disposition home or self-care (01) ==
LOC: ED 07:03 → MED SURG 12:38
PROVIDERS: ADMIT General Practice; ATTEND General Practice
DX: N32.89 Other specified disorders of bladder (principal); R11.2 Nausea with vomiting, unspecified; R10.13 Epigastric pain; E11.9 Type 2 diabetes mellitus without complications; R19.7 Diarrhea, unspecified; R91.1 Solitary pulmonary nodule; D35.00 Benign neoplasm of unspecified adrenal gland; N40.0 Benign prostatic hyperplasia without lower urinary tract symptoms; M47.9 Spondylosis, unspecified; K40.90 Unilateral inguinal hernia, without obstruction or gangrene, not specified as recurrent; I10 Essential (primary) hypertension; E78.00 Pure hypercholesterolemia, unspecified; Z20.828 Contact with and (suspected) exposure to other viral communicable diseases; Z79.899 Other long term (current) drug therapy
CPT/HCPCS: 0241U; 36415; 51702; 74177; 80053; 81001; 82947; 83036; 83690; 83735; 84484; 85025; 87086; 93005; 93268; 96360; 96374; 96375; 96376; 99285; G0378; J1817; J2270; J2405; A9270-GY

== ENCOUNTER 2021-01-26 06:09 | Emergency (ER) | payer MEDICARE, OTHER ==
[2021-01-26 06:21] VITALS: O2SAT 97
[2021-01-26] MEDS ORDERED: Hydromorphone 1 mg/ml Injection IV ONE (07:16)
[2021-01-26] MEDS ORDERED: Sodium Chloride 0.9% 1000 ML 1,000 ML IV STA (07:16)
[2021-01-26] MEDS ORDERED: Zofran 4 MG/2 ML VIAL IV ONE (07:16)
--- NOTE | 2021-01-26 07:16 | ERPHSYRPT ---
- History of Present Illness Time Seen by Provider: 01/26/21 07:05 Historian: patient Exam Limitations: no limitations Patient Subjective Stated Complaint: lower left abd pain x2 days, with flank pain, "I think it might be my prostate". Triage Nursing Assessment: pt c/o left lower abd pain x2 days, with flank pain that wraps around to the front. Pt has hx of kidney stones. Pt vomited x1 this morning. Pt states, "I'm not peeing very much". Pt denies any pain or burning with urination. Pt's LBM was 3 days ago and pt states that is unusual for him as he usually goes daily at the same time. However, pt hasn't ate x2 days and just had sips. Physician History: This is a 65-year-old diabetic white male patient of Dr. Johnson who presents with 3-day history of suprapubic pain, decreased urine output constipation and 2 episodes of vomiting this morning. In addition, the patient has a history of hypertension and chronic prostate issues on Flomax. He had a history of coronary artery disease last myocardial infarction in the past. He is also had a decreased appetite in the last few days. His symptoms have not been improving. He denies chest pain. He denies shortness of breath. He has had no diarrhea. Timing/Duration: day(s) (3) Activities at Onset: none Quality: other (Patient states that the abdominal pain is a chronic low level aching with periodic sharp stabbing cramping episodes) Abdominal Pain Onset Location: suprapubic Pain Radiation: flank Severity of Pain-Max: moderate Severity of Pain-Current: moderate Modifying Factors: Improves With: vomiting, other (Constipation) Associated Symptoms: loss of appetite, nausea, vomiting, weakness Previous symptoms: no prior history Allergies/Adverse Reactions: No Known Drug Allergies Allergy (Verified 01/26/21 06:32) Home Medications: Insulin Glargine [Lantus Insulin] 50 units SQ BIDPRN PRN 01/15/20 [History] Pravastatin Sodium 40 mg PO DAILY 01/15/20 [History] lisinopriL [Lisinopril] 5 mg PO DAILY 01/15/20 [History] Hx Tetanus, Diphtheria Vaccination/Date Given: No Hx Influenza Vaccination/Date Given: No Hx Pneumococcal Vaccination/Date Given: No Immunizations Up to Date: No Travel Risk - International Travel Have you traveled outside of the country in past 3 weeks: No - Coronavirus Screening Are you exhibiting any of the following symptoms?: No Close contact with a COVID-19 positive Pt in past 14-21 Days: Yes - Vaccine Status Have you recieved a Covid-19 vaccination: Yes 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: Moderna - Vaccination Dates Date of 2cond Vaccination (if applicable): 04/2020 Comment: booster 1 month ago - Review of Systems Constitutional: Weakness Eyes: No Symptoms Ears, Nose, & Throat: No Symptoms Respiratory: No Symptoms Cardiac: No Symptoms Abdominal/Gastrointestinal: Abdominal Pain (Supra pubic), Vomiting, Constipation Genitourinary Symptoms: Flank Pain Musculoskeletal: No Symptoms Skin: No Symptoms Neurological: No Symptoms Psychological: No Symptoms Endocrine: No Symptoms Hematologic/Lymphatic: No Symptoms Immunological/Allergic: No Symptoms All Other Systems: Reviewed and Negative - Past Medical History Pertinent Past Medical History: Yes Neurological History: No Pertinent History ENT History: Cataracts Cardiac History: High Cholesterol, Hypertension, Myocardial Infarction ([place]) Respiratory History: Bronchitis Endocrine Medical History: Diabetes Type II Musculoskeletal History: Arthritis, Fractures GI Medical History: GERD Psycho-Social History: No Pertinent History Male Reproductive Disorders: Prostate Problems - Past Surgical History Past Surgical History: Yes Neuro Surgical History: No Pertinent History Cardiac: CABG, Cardiac Catheterization Respiratory: No Pertinent History Gastrointestinal: No Pertinent History Genitourinary: No Pertinent History Musculoskeletal: Orthopedic Surgery Male Surgical History: No Pertinent History Other Surgical History: R shoulder 2020 rotator cuff/bicep torn in two - Social History Smoking Status: Former smoker Exposure to second hand smoke: Yes Drug Use: none Patient Lives Alone: No Significant Family History: no pertinent family hx - Nursing Vital Signs Nursing Vital Signs: Initial Vital Signs Temperature 98.3 F 01/26/21 06:09 Pulse Rate 89 01/26/21 06:09 Respiratory Rate 18 01/26/21 06:09 Blood Pressure 137/72 01/26/21 06:09 O2 Sat by Pulse Oximetry 97 01/26/21 06:09 Pain Scale Pain Intensity 4 - Physical Exam General Appearance: mild distress, alert, anxiety Eye Exam: PERRL/EOMI, eyes nml inspection Ears, Nose, Throat Exam: normal ENT inspection, moist mucous membranes Neck Exam: normal inspection, non-tender, supple, full range of motion Respiratory Exam: normal breath sounds, lungs clear, airway intact, No chest tenderness, No respiratory distress Cardiovascular Exam: regular rate/rhythm, normal heart sounds, normal peripheral pulses Gastrointestinal/Abdomen Exam: soft, normal bowel sounds, tenderness (Suprapubic region), guarding (Suprapubic region) Rectal Exam: not done Back Exam: normal inspection, normal range of motion, CVA tenderness, No vertebral tenderness Extremity Exam: normal inspection, normal range of motion, pelvis stable Neurologic Exam: alert, oriented x 3, cooperative, tube room supervisor II-XII nml as tested, nor mal mood/affect, nml cerebellar function, nml station & gait, sensation nml Skin Exam: normal color, warm, dry Lymphatic Exam: No adenopathy SpO2 Interpretation: normal SpO2: 97 O2 Delivery: Room Air - Course Nursing assessment & vital signs reviewed: Yes EKG Interpreted by Me: RATE (77), Sinus Rhythm, NORMAL QRS, Non-specific ST Changes, Other (Prolonged ID interval on today's EKG. There is persistent left ventricular hypertrophy on today's EKG. When compared to EKG dated 05/21/2020, the only thing new is a nonspecific T wave abnormality in the lateral leads.) Ordered Tests: Active Orders 24 hr Category Date Time Status Catheter-[place] STAT Care 01/26/21 07:16 Active EKG-ER Only STAT Care 01/26/21 07:16 Active IV Insertion STAT Care 01/26/21 07:16 Active ABDOMEN AND PELVIS W/0 CONTRAS [CT] Stat Exams 01/26/21 07:16 Completed AMYLASE Stat Lab 01/26/21 06:25 Completed CBC W DIFF Stat Lab 01/26/21 06:25 Completed CMP Stat Lab 01/26/21 06:25 Completed LIPASE Stat Lab 01/26/21 06:25 Completed Lactic Acid Stat Lab 01/26/21 07:50 Completed Lactic Acid Stat Lab 01/26/21 09:54 Received TROPONIN Q3H Lab 01/26/21 06:25 Completed TROPONIN Q3H Lab 01/26/21 10:30 Ordered TROPONIN Q3H Lab 01/26/21 13:30 Ordered TROPONIN Q3H Lab 01/26/21 16:30 Ordered TROPONIN Q3H Lab 01/26/21 19:30 Ordered UA W/RFX UR CULTURE Stat Lab 01/26/21 07:43 Completed Medication Summary Discontinued Medications Generic Name Dose Route Start Last Admin Trade Name Freq PRN Reason Stop Dose Admin Hydromorphone HCl 1 mg 01/26/21 07:16 01/26/21 07:34 Hydromorphone 1 Mg/1ml Inj 1 Mg/Ml Syringe IV 01/26/21 07:17 1 mg STAT ONE Administration Hydromorphone HCl Confirm 01/26/21 07:32 Hydromorphone 1 Mg/1ml Inj 1 Mg/Ml Syringe Administered 01/26/21 07:33 Dose 1 mg .ROUTE .STK-MED ONE Sodium Chloride 1,000 mls @ 999 mls/hr 01/26/21 07:16 01/26/21 08:36 Sodium Chloride 0.9% 1000 Ml IV 01/26/21 08:16 Infused .Q1H1M STA Infusion Sodium Chloride Confirm 01/26/21 07:32 Sodium Chloride 0.9% 1000 Ml Administered 01/26/21 07:33 Dose 1,000 mls @ ud .ROUTE .STK-MED ONE Ondansetron HCl 4 mg 01/26/21 07:16 01/26/21 07:33 Ondansetron Hcl 4 Mg/2 Ml Vial IV 01/26/21 07:17 4 mg STAT ONE Administration Ondansetron HCl Confirm 01/26/21 07:31 Ondansetron Hcl 4 Mg/2 Ml Vial Administered 01/26/21 07:32 Dose 4 mg .ROUTE .STK-MED ONE Lab/Rad Data: Laboratory Result Diagrams 01/26/21 06:25 01/26/21 06:25 Laboratory Results 01/26/21 01/26/21 01/26/21 Range/Units 07:50 07:43 06:25 WBC (4.0-10.5) K/mm3 RBC (4.1-5.6) M/mm3 Hgb (12.5-18.0) gm/dl Hct (42-50) % MCV (78-100) fl MCH (26-32) pg MCHC (32-36) g/dl RDW (11.5-14.0) % Plt Count (150-450) K/mm3 MPV (7.5-11.0) fl Gran % (36.0-66.0) % Eos # (Auto) (0-0.5) Absolute Lymphs (auto) (1.0-4.6) Absolute Monos (auto) (0.0-1.3) Lymphocytes % (24.0-44.0) % Monocytes % (0.0-12.0) % Eosinophils % (0.00-5.0) % Basophils % (0.0-0.4) % Absolute Granulocytes (1.4-6.9) Basophils # (0-0.4) Sodium (137-145) mmol/L Potassium (3.5-5.1) mmol/L Chloride (98-107) mmol/L Carbon Dioxide (22-30) mmol/L Anion Gap (5-15) MEQ/L BUN (9-20) mg/dL Creatinine (0.66-1.25) mg/dL Estimated GFR ML/MIN Glucose (74-106) mg/dL Lactic Acid 2.0 (0.4-2.0) Calcium (8.4-10.2) mg/dL Total Bilirubin (0.2-1.3) mg/dL AST (17-59) U/L ALT (0-50) U/L Alkaline Phosphatase (38-126) U/L Troponin I < 0.012 (0.000-0.034) ng/mL Serum Total Protein (6.3-8.2) g/dL Albumin (3.5-5.0) g/dL Amylase (30-110) U/L Lipase (23-300) U/L Urine Color YELLOW (YELLOW) Urine Appearance CLEAR (CLEAR) Urine pH 6.0 (5-6) Ur Specific [place] 1.025 (1.005-1.025) Urine Protein 30 (Negative) Urine Ketones SMALL (NEGATIVE) Urine Blood MODERATE (0-5) Shilo/ul Urine Nitrite NEGATIVE (NEGATIVE) Urine Bilirubin NEGATIVE (NEGATIVE) Urine Urobilinogen NEGATIVE (0-1) mg/dL Ur Leukocyte Esterase NEGATIVE (NEGATIVE) Urine WBC (Auto) 6-10 (0-5) /HPF Urine RBC (Auto) 26-50 (0-2) /HPF U Epithel Cells (Auto) NONE (FEW) /HPF Urine Bacteria (Auto) NONE SEEN (NEGATIVE) /HPF Urine Culture Reflexed NO (NO) Urine Glucose >=500 (NEGATIVE) mg/dL 01/26/21 01/26/21 Range/Units 06:25 06:25 WBC 14.3 H (4.0-10.5) K/mm3 RBC 4.83 (4.1-5.6) M/mm3 Hgb 13.4 (12.5-18.0) gm/dl Hct 41.6 L (42-50) % MCV 86.1 (78-100) fl MCH 27.7 (26-32) pg MCHC 32.2 (32-36) g/dl RDW 14.8 H (11.5-14.0) % Plt Count 191 (150-450) K/mm3 MPV 11.6 H (7.5-11.0) fl Gran % 87.1 H (36.0-66.0) % Eos # (Auto) 0.01 (0-0.5) Absolute Lymphs (auto) 0.91 L (1.0-4.6) Absolute Monos (auto) 0.90 (0.0-1.3) Lymphocytes % 6.4 L (24.0-44.0) % Monocytes % 6.3 (0.0-12.0) % Eosinophils % 0.1 (0.00-5.0) % Basophils % 0.1 (0.0-0.4) % Absolute Granulocytes 12.45 H (1.4-6.9) Basophils # 0.01 (0-0.4) Sodium 132 L (137-145) mmol/L Potassium 4.1 (3.5-5.1) mmol/L Chloride 99 (98-107) mmol/L Carbon Dioxide 22 (22-30) mmol/L Anion Gap 16.1 H (5-15) MEQ/L BUN 21 H (9-20) mg/dL Creatinine 1.48 H (0.66-1.25) mg/dL Estimated GFR 50.5 ML/MIN Glucose 273 H (74-106) mg/dL Lactic Acid (0.4-2.0) Calcium 9.2 (8.4-10.2) mg/dL Total Bilirubin 1.20 (0.2-1.3) mg/dL AST 26 (17-59) U/L ALT 20 (0-50) U/L Alkaline Phosphatase 147 H (38-126) U/L Troponin I (0.000-0.034) ng/mL Serum Total Protein 7.9 (6.3-8.2) g/dL Albumin 4.4 (3.5-5.0) g/dL Amylase 62 (30-110) U/L Lipase 72 (23-300) U/L Urine Color (YELLOW) Urine Appearance (CLEAR) Urine pH (5-6) Ur Specific [place] (1.005-1.025) Urine Protein (Negative) Urine Ketones (NEGATIVE) Urine Blood (0-5) Shilo/ul Urine Nitrite (NEGATIVE) Urine Bilirubin (NEGATIVE) Urine Urobilinogen (0-1) mg/dL Ur Leukocyte Esterase (NEGATIVE) Urine WBC (Auto) (0-5) /HPF Urine RBC (Auto) (0-2) /HPF U Epithel Cells (Auto) (FEW) /HPF Urine Bacteria (Auto) (NEGATIVE) /HPF Urine Culture Reflexed (NO) Urine Glucose (NEGATIVE) mg/dL - Progress Progress: improved, pain not gone completely Progress Note: 01/26/21 09:07 CAT scan of the abdomen and pelvis shows a cluster of calculi in the mid to proximal left ureter largest one measuring 7 mm. The proximal left ureter is mildly distended. There is moderate hydronephrosis with minimal perinephric stranding on the left side. This is consistent with high-grade obstructive uropathy. 01/26/21 09:58 Medical decision making: This patient states that his pain is much improved. However, he does have significant findings on his CAT scan which shows the left ureteral calculi and mild ureteral distention with moderate hydronephrosis and minimal perinephric stranding. I do not want to delay urological intervention if that is indicated. Therefore, I contacted Dr. Pena office and spoke with the book packer Nina. She made an appointment for him for 1 PM tomorrow, 01/27/2021. If his symptoms get worse he is to go to the emergency room at [facility]. I am faxing the report of the CAT scan abdomen and pelvis nilda Graham the nurse practitioner. Counseled pt/family regarding: lab results, diagnosis, need for follow-up, rad results - Departure Departure Disposition: Home Clinical Impression: Ureterolithiasis, Obstructive uropathy Condition: Stable Critical Care Time: No Referrals: GRZEGORZ JOHNSON MD [Primary Care Provider] - Follow up/PCP as directed Additional Instructions: Drink plenty of fluids. Add ibuprofen 600 mg orally 3 times a day with food for the next 5 days to help in pain control. Take your medication as prescribed. Follow-up in Dr. Fabian's office tomorrow, 01/27/2021 at 1 PM. Do not eat or drink anything after 5 AM tomorrow morning. If your symptoms worsen prior to your appointment tomorrow, head to the emergency room at [facility] for possible urologic intervention. Dr. Fabian's office phone number is [phone] Prescriptions: Hydrocodone/APAP 5/325 [[place] 5/325 mg] 1 each PO Q8H PRN PRN #6 tablet MDD 3 PRN Reason: Pain Ciprofloxacin [Cipro 500 MG] 500 mg PO BID #14 tablet
[2021-01-26] MEDS ORDERED: Zofran 4 MG/2 ML VIAL ONE (07:31)
[2021-01-26] MEDS ORDERED: Hydromorphone 1 mg/ml Injection ONE (07:32)
[2021-01-26] MEDS ORDERED: Sodium Chloride 0.9% 1000 ML 1,000 ML ONE (07:32)
[2021-01-26 07:40] LABS: ALBUMIN 4.4 g/dL (3.5-5.0); ANION GAP 16.1 MEQ/L (5-15); BILIRUBIN,TOTAL 1.2 mg/dL (0.2-1.3); Calcium 9.2 mg/dL (8.4-10.2); Creatinine 1 1.48 mg/dL (0.66-1.25); EST GLOMERULAR FILTRATION RATE 50.5 ML/MIN; Potassium 4.1 mmol/L (3.5-5.1); Total Protein 7.9 g/dL (6.3-8.2)
[2021-01-26 07:53] LABS: Absolute Neutrophil Ct (ANC) 12.45 (1.4-6.9); BASOPHIL % 0.1 % (0.0-0.4); Basophil (Absolute #) 0.01 (0-0.4); Eosinophil % 0.1 % (0.00-5.0); Eosinophil (Absolute #) 0.01 (0-0.5); Hematocrit 41.6 % (42-50); Hemoglobin 13.4 gm/dl (12.5-18.0); Lymphocyte (Absolute #) 0.91 (1.0-4.6); Lymphocytes % 6.4 % (24.0-44.0); Mean Cell Volume 86.1 fl (78-100); Mean Corpuscular Hemoglobin 27.7 pg (26-32); Mean Corpuscular Hgb Concent. 32.2 g/dl (32-36); Mean Platelet Volume 11.6 fl (7.5-11.0); Monocytes % 6.3 % (0.0-12.0); Neutrophil % 87.1 % (36.0-66.0); Platelet Count 191 K/mm3 (150-450); Red Blood Count 4.83 M/mm3 (4.1-5.6); Red Cell Distribution Width 14.8 % (11.5-14.0); White Blood Count 14.3 K/mm3 (4.0-10.5)
[2021-01-26 07:56] LABS: Appearance CLEAR (CLEAR); Bilirubin NEGATIVE (NEGATIVE); Blood MODERATE Ery/ul (0-5); Glucose >=500 mg/dL (NEGATIVE); Ketones SMALL (NEGATIVE); Leukocyte Esterase NEGATIVE (NEGATIVE); Nitrite NEGATIVE (NEGATIVE); Protein,Urine Dip 30 (Negative); RBC 26-50 /HPF (0-2); Specific Gravity 1.025 (1.005-1.025); Urobilinogen NEGATIVE mg/dL (0-1)
[2021-01-26 07:59] LABS: Bacteria NONE SEEN /HPF (NEGATIVE)
--- NOTE | 2021-01-26 08:56 | XRAY ---
Indication: Left flank pain and vomiting. History kidney stones. Multiple contiguous axial images obtained through the abdomen and pelvis without contrast using renal stone protocol. Comparison: May 31, 2020. Lung bases demonstrate stable 11 mm right lower lobe indeterminant noncalcified nodule. Mild bibasilar dependent atelectasis. No infiltrate or effusion. Heart is not enlarged. There are now tiny cluster of calculi seen in the mid to proximal left ureter, largest 7 mm approximately L4 level. Proximal left ureter is mildly distended along with moderate/and evident hydronephrosis and minimal perinephric stranding consistent with high-grade obstructive uropathy. No perinephric fluid. Right kidney demonstrates 3-4 mm nonobstructing calculus. Noncontrasted stomach and bowel loops nonobstructed again with normal appendix. Urinary bladder is near empty with new [place] balloon catheter in situ. Stable enlarged prostate gland and small left adrenal adenoma. Remaining liver, gallbladder, pancreas, spleen, adrenal glands, kidneys, ureters, and bladder are unremarkable for noncontrast exam. There remains mild scattered aortoiliac calcifications without AAA. Osseous structures intact again with mild degenerative changes throughout the thoracolumbar spine and both hips. Stable small fatty left inguinal hernia. Impression: 1. New cluster of micro-calculi in the mid to proximal left ureter producing high-grade obstruction. Nonobstructing right renal micro-calculus. 2. Again incidental indeterminant right lung base noncalcified nodule, enlarged prostate gland, left adrenal adenoma, fatty left inguinal hernia, and chronic bony findings.
[2021-01-26 10:11] VITALS: BP 146/66; PULSE 74
== END 2021-01-26 10:16 | disposition home or self-care (01) ==
LOC: ED 06:09
DX: N13.2 Hydronephrosis with renal and ureteral calculous obstruction (principal); R11.2 Nausea with vomiting, unspecified; R10.2 Pelvic and perineal pain; E11.8 Type 2 diabetes mellitus with unspecified complications; Z79.4 Long term (current) use of insulin; E78.5 Hyperlipidemia, unspecified; I10 Essential (primary) hypertension; Z79.891 Long term (current) use of opiate analgesic
CPT/HCPCS: 36000; 36415; 51702; 74176; 80053; 81001; 82150; 83605; 83690; 84484; 85025; 93005; 96360; 96374; 96375; 99284; J1170; J2405

== ENCOUNTER 2021-07-25 12:04 | Emergency (ER) | payer MEDICARE, OTHER ==
[2021-07-25] MEDS ORDERED: XYLOCAINE 1% HCL 20 ML MDV IJ ONE (12:05)
[2021-07-25 12:20] VITALS: O2SAT 97
[2021-07-25] MEDS ORDERED: Rocephin 1000 MG INJ IM ONE (12:35)
[2021-07-25] MEDS ORDERED: Adacel Vial IM ONE ×2 (12:35→12:37)
[2021-07-25] MEDS ORDERED: Rocephin 1000 MG INJ ONE (12:37)
--- NOTE | 2021-07-25 12:42 | ERPHSYRPT ---
- History of Present Illness Time Seen by Provider: 07/25/21 12:20 Source: patient Exam Limitations: no limitations Patient Subjective Stated Complaint: PT TO ER WITH COMPLAINTS OF LEG COMPLAINT. PT STATES THE SWELLING STARTED YESTERDAY. 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 PT DENIES PAIN. Triage Nursing Assessment: PT AMBULATORY. A&OX4. PT SKIN PWD. PT WITH WOUND TO LEFT LOWER LEG. SLIGHT SWELLING NOTED. SKIN FEELS WARM TO TOUCH BY WOUND. GOOD PEDAL PULSE. Physician History: Patient is a 65-year-old male presents to emergency department for evaluation of a leg wound. Patient states he is a diabetic and injured his leg approximately 2 to 3 weeks ago. The wound has delayed healing. Patient observed that his left leg is somewhat swollen. No calf pain. Patient concerned with the swelling and the fact that the wound has not healed. Patient's glucose has been normal per patient. No associated fever. No nausea or vomiting. No diarrhea. No rash. No lower extremity numbness tingling or weakness. Patient has not visited his primary care doctor for this problem. Patient voices no other complaints or concerns at this time. Timing/Duration: week(s) (2 to 3 weeks) Severity: mild Modifying Factors: Improves With: nothing Associated Symptoms: denies symptoms Allergies/Adverse Reactions: No Known Drug Allergies Allergy (Verified 07/25/21 12:20) Home Medications: Insulin Glargine [Lantus Insulin] 50 units SQ BIDPRN PRN 01/15/20 [History] Pravastatin Sodium 40 mg PO DAILY 01/15/20 [History] lisinopriL [Lisinopril] 5 mg PO DAILY 01/15/20 [History] Hx Tetanus, Diphtheria Vaccination/Date Given: No Hx Influenza Vaccination/Date Given: No Hx Pneumococcal Vaccination/Date Given: No Travel Risk - International Travel Have you traveled outside of the country in past 3 weeks: No - Coronavirus Screening Are you exhibiting any of the following symptoms?: No Close contact with a COVID-19 positive Pt in past 14-21 Days: No - Vaccine Status Have you recieved a Covid-19 vaccination: Yes 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 - Vaccination Dates Date of 2cond Vaccination (if applicable): 04/2020 Comment: booster 1 month ago - Review of Systems Constitutional: No Symptoms, No Fever, No Chills Eyes: No Symptoms Ears, Nose, & Throat: No Symptoms Respiratory: No Symptoms, No Cough, No Dyspnea Cardiac: No Symptoms, No Chest Pain, No Edema, No Syncope Abdominal/Gastrointestinal: No Symptoms, No Abdominal Pain, No Nausea, No Vomiting, No Diarrhea Genitourinary Symptoms: No Symptoms, No Dysuria Musculoskeletal: No Symptoms, No Back Pain, No Neck Pain Skin: No Rash Neurological: No Dizziness, No Focal Weakness, No Sensory Changes Psychological: No Symptoms Endocrine: No Symptoms All Other Systems: Reviewed and Negative - Past Medical History Pertinent Past Medical History: Yes Neurological History: No Pertinent History ENT History: Cataracts Cardiac History: High Cholesterol, Hypertension, Myocardial Infarction ([place]) Respiratory History: Bronchitis Endocrine Medical History: Diabetes Type II Musculoskeletal History: Arthritis, Fractures GI Medical History: GERD Psycho-Social History: No Pertinent History Male Reproductive Disorders: Prostate Problems - Past Surgical History Past Surgical History: Yes Neuro Surgical History: No Pertinent History Cardiac: CABG, Cardiac Catheterization Respiratory: No Pertinent History Gastrointestinal: No Pertinent History Genitourinary: No Pertinent History Musculoskeletal: Orthopedic Surgery Male Surgical History: No Pertinent History Other Surgical History: R shoulder 2020 rotator cuff/bicep torn in two - Social History Smoking Status: Former smoker Exposure to second hand smoke: Yes Drug Use: none Patient Lives Alone: No Significant Family History: no pertinent family hx - Nursing Vital Signs Nursing Vital Signs: Initial Vital Signs Temperature 98.7 F 07/25/21 12:12 Pulse Rate 66 07/25/21 12:12 Respiratory Rate 16 07/25/21 12:12 Blood Pressure 156/77 07/25/21 12:12 O2 Sat by Pulse Oximetry 97 07/25/21 12:12 Pain Scale Pain Intensity 0 - Physical Exam General Appearance: no apparent distress, alert Eye Exam: PERRL/EOMI, eyes nml inspection Ears, Nose, Throat Exam: normal ENT inspection, TMs normal, pharynx normal, moist mucous membranes Neck Exam: normal inspection, non-tender, supple, full range of motion Respiratory Exam: normal breath sounds, lungs clear, airway intact, No chest tenderness, No respiratory distress Cardiovascular Exam: regular rate/rhythm, normal heart sounds, normal peripheral pulses Gastrointestinal/Abdomen Exam: soft, normal bowel sounds, No tenderness, No mass Back Exam: normal inspection, normal range of motion, No CVA tenderness, No vertebral tenderness Extremity Exam: normal inspection, normal range of motion, pelvis stable Neurologic Exam: alert, oriented x 3, cooperative, normal mood/affect, nml cerebellar function, nml station & gait, sensation nml, No motor deficits Skin Exam: normal color, warm, dry, other (Wound measures 1 x 1 cm and located at the middle third anterior aspect of the left lower leg.), No rash Lymphatic Exam: No adenopathy SpO2 Interpretation: normal SpO2: 97 O2 Delivery: Room Air - Course Nursing assessment & vital signs reviewed: Yes - Radiology Ultrasound Exam Venous Lower Extremity Ultrasound: tele radiology report (Negative for DVT.) Ordered Tests: Active Orders 24 hr Category Date Time Status VENOUS UNILAT/LIMITED EXTREMIT [US] Stat Exams 07/25/21 12:41 Ordered Medication Summary Discontinued Medications Generic Name Dose Route Start Last Admin Trade Name Freq PRN Reason Stop Dose Admin Ceftriaxone Sodium 1,000 mg 07/25/21 12:35 07/25/21 12:38 Ceftriaxone Sodium 1000 Mg Inj Vial IM 07/25/21 12:36 1,000 mg STAT ONE Administration Ceftriaxone Sodium Confirm 07/25/21 12:37 Ceftriaxone Sodium 1000 Mg Inj Vial Administered 07/25/21 12:38 Dose 1,000 mg .ROUTE .STK-MED ONE Diphtheria/Tetanus/Acell Pertussis 0.5 ml 07/25/21 12:35 07/25/21 12:38 Tdap --Diph,Pertuss(Acell),Tet Vac/Pf 0.5 Ml Vial IM 07/25/21 12:36 0.5 ml .ONCE ONE Administration Diphtheria/Tetanus/Acell Pertussis Confirm 07/25/21 12:37 Tdap --Diph,Pertuss(Acell),Tet Vac/Pf 0.5 Ml Vial Administered 07/25/21 12:38 Dose 0.5 ml IM .STK-MED ONE - Progress Progress: improved Progress Note: Patient received a gram of Rocephin IM in our ED. A prescription for doxycycline was forwarded to patient's pharmacy. Clindamycin not prescribed due to risk of C. difficile colitis. Bactrim interacts with patient lisinopril. Doxycycline prescribed instead. We contacted patient's primary care doctor. They have scheduled to see patient tomorrow at 1030 in the doctor office. Patient agrees to follow-up with his primary care doctor tomorrow as scheduled Tetanus updated Portions of this note were created with voice recognition technology. There may be grammatical, spelling, punctuation or sound alike errors 07/25/21 12:38 Counseled pt/family regarding: diagnosis, need for follow-up, rad results - Departure Departure Disposition: Home Clinical Impression: Leg wound, left, Cellulitis Condition: Stable Critical Care Time: No Referrals: GRZEGORZ JOHNSON MD [Primary Care Provider] - Follow up/PCP as directed Additional Instructions: Discharge/Care Plan REGINARICK Yu was seen on 07/25/21 in the Emergency Room. The patient was counseled regarding Diagnosis,Lab results, Imaging studies, need for follow up and when to return to the Emergency Room. Prescriptions given: Discharge Note I have spoken with the patient and/or caregivers. I have explained the patient's condition, diagnosis and treatment plan based on the information available to me at this time. I have answered the patient's and/or caregiver's questions and addressed any concerns. The patient and/or caregivers have as good understanding of the patient's diagnosis, condition and treatment plan as can be expected at this point. The vital signs have been stable. The patient's condition is stable and appropriate for discharge from the emergency department. The patient will pursue further outpatient evaluation with the primary care physician or other designated or consulting physician as outlined in the discharge instructions. The patient and/or caregivers are agreeable to this plan of care and follow-up instructions have been explained in detail. The patient and/or caregivers have received these instruction. The patient/and or caregivers are aware that any significant change in condition or worsening of symptoms should prompt an immediate return to this or the closest emergency department or call 911. Prescriptions: Doxycycline Hyclate 100 mg [Vibramycin 100 MG] 100 mg PO BID 7 Days #14 tab
[2021-07-25 13:11] VITALS: BP 152/72; PULSE 64
--- NOTE | 2021-07-25 13:17 | XRAY ---
Indication: Pain. DVT. Two-dimensional sonogram and color Doppler imaging of the major venous vessels of the left leg performed. Comparison: None No thrombus seen in the examined deep venous vessels of the left leg including greater saphenous vein. Veins demonstrate normal compressibility. Venous waveforms are normal with and without augmentation. Impression: Left leg negative for DVT.
== END 2021-07-25 13:09 | disposition home or self-care (01) ==
LOC: ED 12:04
DX: S81.802A Unspecified open wound, left lower leg, initial encounter (principal); L03.116 Cellulitis of left lower limb; E78.5 Hyperlipidemia, unspecified; I10 Essential (primary) hypertension; E11.9 Type 2 diabetes mellitus without complications; Z79.4 Long term (current) use of insulin; Z79.899 Other long term (current) drug therapy
CPT/HCPCS: 90471; 90715; 93971; 96372; 99284; J0696

== ENCOUNTER 2022-04-25 08:54 | Emergency (ER) | payer MEDICARE, OTHER ==
[2022-04-25] MEDS ORDERED: MORPHINE SULFATE 4 MG INJ IV ONE (09:05)
[2022-04-25] MEDS ORDERED: BENADRYL 50 MG/ML IV ONE (09:05)
[2022-04-25] MEDS ORDERED: Sodium Chloride 0.9% 1000 ML 1,000 ML IV STA (09:05)
[2022-04-25] MEDS ORDERED: BENADRYL 50 MG/ML ONE (09:10)
[2022-04-25] MEDS ORDERED: MORPHINE SULFATE 4 MG INJ ONE (09:11)
[2022-04-25] MEDS ORDERED: Sodium Chloride 0.9% 1000 ML 1,000 ML ONE (09:11)
[2022-04-25 09:19] LABS: Absolute Neutrophil Ct (ANC) 11.49 x10^3/uL (1.4-6.9); BASOPHIL % 0.3 % (0.0-0.4); Basophil (Absolute #) 0.04 x10^3/uL (0-0.4); Eosinophil % 0.6 % (0.00-5.0); Eosinophil (Absolute #) 0.08 x10^3/uL (0-0.5); Hemoglobin 15.3 g/dL (12.5-18.0); IMMATURE GRAN # 0.05 x10^3u/L (0.00-0.03); IMMATURE GRAN % 0.4 % (0.00-0.4); Lymphocyte (Absolute #) 1.22 x10^3/uL (1.0-4.6); Lymphocytes % 9.2 % (24.0-44.0); Mean Cell Volume 86.3 fL (78-100); Mean Corpuscular Hemoglobin 28.7 pg (26-32); Mean Corpuscular Hgb Concent. 33.3 g/dL (32-36); Mean Platelet Volume 10.6 fL (7.5-11.0); Monocyte (Absolute #) 0.44 x10^3/uL (0.0-1.3); Monocytes % 3.3 % (0.0-12.0); Neutrophil % 86.2 % (36.0-66.0); Platelet Count 200 x10^3/uL (150-450); Red Blood Count 5.33 x10^6/uL (4.1-5.6); Red Cell Distribution Width 12.6 % (11.5-14.0); White Blood Count 13.3 x10^3/uL (4.0-10.5)
--- NOTE | 2022-04-25 09:23 | XRAY ---
Indication: Vomiting. Comparison: None Portable chest demonstrates minimal left base subsegmental atelectasis/scarring. Remaining lungs inflated and clear. Heart not enlarged with CABG. Bony thorax intact with mild degenerative changes. Impression: Nonacute chest with chronic features.
--- NOTE | 2022-04-25 09:28 | ERPHSYRPT ---
- History of Present Illness Time Seen by Provider: 04/25/22 08:56 Source: patient Exam Limitations: no limitations Patient Subjective Stated Complaint: PT HERE FOR N/V OFF AND ON FOR 2 WEEKS NOW, WAS SEE BY FAMILY DOC AND GIVEN ZITHROMAX, HE STATES TODAY HAS BEEN THE WORSE, Triage Nursing Assessment: PT ALERT,MOANING OUT, VOMITED X1 RESP EASY SKIN W/D/P. ABD TENDER TO TOUCH, STATES BURNING SENSATION, Physician History: Patient is here with nausea, vomiting. Has been going on for 2 weeks. No falls or other trauma. Patient has not taken his blood pressure medication this morning. Patient states he saw his PCP recently started on a new diabetes medication. Patient states that he was given a Z-Mikel. He has finished the Z- Mikel. No improvement in symptoms. Patient mostly complaining of nonspecific, diffuse abdominal pain as well. No chest pain or shortness of breath at this point time. He has not tried any else to make it better or worse at home. No documented fevers. Patient states that he was swabbed for flu, COVID at his PCPs office. These both returned negative. Timing/Duration: today Severity: moderate Allergies/Adverse Reactions: No Known Drug Allergies Allergy (Verified 04/25/22 08:58) Home Medications: Insulin Glargine [Lantus Insulin] 50 units SQ BIDPRN PRN 01/15/20 [History] Pravastatin Sodium 40 mg PO DAILY 01/15/20 [History] lisinopriL [Lisinopril] 5 mg PO DAILY 01/15/20 [History] Hx Tetanus, Diphtheria Vaccination/Date Given: No Hx Influenza Vaccination/Date Given: No Hx Pneumococcal Vaccination/Date Given: No Immunizations Up to Date: Yes Travel Risk - International Travel Have you traveled outside of the country in past 3 weeks: No - Coronavirus Screening Are you exhibiting any of the following symptoms?: No - Vaccine Status Have you recieved a Covid-19 vaccination: Yes Bung Sewer: Moderna - Vaccination Dates Date of 2cond Vaccination (if applicable): 04/2020 Comment: booster 1 month ago - Review of Systems Constitutional: No Fever, No Chills Eyes: No Symptoms Ears, Nose, & Throat: No Symptoms Respiratory: No Cough, No Dyspnea Cardiac: No Chest Pain, No Edema, No Syncope Abdominal/Gastrointestinal: Abdominal Pain, Nausea, Vomiting, No Diarrhea Genitourinary Symptoms: No Dysuria Musculoskeletal: No Back Pain, No Neck Pain Skin: No Rash Neurological: No Dizziness, No Focal Weakness, No Sensory Changes Psychological: No Symptoms Endocrine: No Symptoms All Other Systems: Reviewed and Negative - Past Medical History Pertinent Past Medical History: Yes Neurological History: No Pertinent History ENT History: Cataracts Cardiac History: High Cholesterol, Hypertension, Myocardial Infarction ([place]) Respiratory History: Bronchitis Endocrine Medical History: Diabetes Type II Musculoskeletal History: Arthritis, Fractures GI Medical History: GERD Psycho-Social History: No Pertinent History Male Reproductive Disorders: Prostate Problems - Past Surgical History Past Surgical History: Yes Neuro Surgical History: No Pertinent History Cardiac: CABG, Cardiac Catheterization Respiratory: No Pertinent History Gastrointestinal: No Pertinent History Genitourinary: No Pertinent History Musculoskeletal: Orthopedic Surgery Male Surgical History: No Pertinent History Other Surgical History: R shoulder 2020 rotator cuff/bicep torn in two - Social History Smoking Status: Former smoker Exposure to second hand smoke: Yes Drug Use: marijuana Patient Lives Alone: No Significant Family History: no pertinent family hx - Nursing Vital Signs Nursing Vital Signs: Initial Vital Signs Temperature 96.8 F 04/25/22 09:00 Pulse Rate 77 04/25/22 09:00 Respiratory Rate 18 04/25/22 09:00 Blood Pressure 200/98 04/25/22 09:00 O2 Sat by Pulse Oximetry 100 04/25/22 09:00 Pain Scale Pain Intensity 3 - Physical Exam General Appearance: no apparent distress, alert, other (Actively dry heaving in the room as a walk-in) Eye Exam: PERRL/EOMI, eyes nml inspection Ears, Nose, Throat Exam: normal ENT inspection, TMs normal, pharynx normal, moist mucous membranes Neck Exam: normal inspection, non-tender, supple, full range of motion Respiratory Exam: normal breath sounds, lungs clear, No respiratory distress Cardiovascular Exam: regular rate/rhythm, normal heart sounds, normal peripheral pulses Gastrointestinal/Abdomen Exam: soft, normal bowel sounds, tenderness, other (Nonspecific diffuse abdominal tenderness without rebound or guarding), No mass Back Exam: normal inspection, normal range of motion, No CVA tenderness, No vertebral tenderness Extremity Exam: normal inspection, normal range of motion, pelvis stable Neurologic Exam: alert, oriented x 3, cooperative, normal mood/affect, nml cerebellar function, nml station & gait, sensation nml, No motor deficits Skin Exam: normal color, warm, dry, No rash Lymphatic Exam: No adenopathy SpO2: 100 - Course Nursing assessment & vital signs reviewed: Yes EKG Interpreted by Me: Sinus Rhythm (Sinus rhythm no signs of ischemia) Ordered Tests: Active Orders 24 hr Category Date Time Status Director Of Online Education STAT Care 04/25/22 09:06 Active EKG-ER Only STAT Care 04/25/22 09:05 Active IV Insertion STAT Care 04/25/22 09:05 Active ABDOMEN AND PELVIS W CONTRAST [CT] Stat Exams 04/25/22 09:49 Completed CHEST 1 VIEW (PORTABLE) Stat Exams 04/25/22 09:06 Completed CHEST WITH CONTRAST [CT] Stat Exams 04/25/22 09:49 Completed CBC W DIFF Stat Lab 04/25/22 09:21 Completed CK-Creatinine Phosphokinase Stat Lab 04/25/22 09:21 Completed CMP Stat Lab 04/25/22 09:21 Completed D-DIMER QUANTITATIVE Stat Lab 04/25/22 09:21 Completed LIPASE Stat Lab 04/25/22 09:21 Completed NT PRO BNPII Stat Lab 04/25/22 09:21 Completed PROCALCITONIN Stat Lab 04/25/22 09:21 Completed PROTIME WITH INR Stat Lab 04/25/22 09:21 Completed TROPONIN Q4H Lab 04/25/22 09:21 Completed TROPONIN Q4H Lab 04/25/22 13:15 Ordered TROPONIN Q4H Lab 04/25/22 17:15 Ordered Medication Summary Discontinued Medications Generic Name Dose Route Start Last Admin Trade Name Freq PRN Reason Stop Dose Admin Dexamethasone Sodium Phosphate 10 mg 04/25/22 10:45 04/25/22 10:49 Dexamethasone Sod Phosphate 10 Mg/Ml IV 04/25/22 10:46 10 mg STAT ONE Administration Dexamethasone Sodium Phosphate Confirm 04/25/22 10:47 Dexamethasone Sod Phosphate 10 Mg/Ml Administered 04/25/22 10:48 Dose 10 mg .ROUTE .STK-MED ONE Diphenhydramine HCl 25 mg 04/25/22 09:05 04/25/22 09:18 Diphenhydramine Hcl 50 Mg/Ml Vial IV 04/25/22 09:06 25 mg STAT ONE Administration Diphenhydramine HCl Confirm 04/25/22 09:10 Diphenhydramine Hcl 50 Mg/Ml Vial Administered 04/25/22 09:11 Dose 50 mg .ROUTE .STK-MED ONE Droperidol 1.25 mg 04/25/22 09:05 04/25/22 09:16 Droperidol 5 Mg/2 Ml Vial IV 04/25/22 09:06 1.25 mg STAT ONE Administration Droperidol Confirm 04/25/22 09:10 Droperidol 5 Mg/2 Ml Vial Administered 04/25/22 09:11 Dose 5 mg .ROUTE .STK-MED ONE Sodium Chloride 1,000 mls @ 999 mls/hr 04/25/22 09:05 04/25/22 11:16 Sodium Chloride 0.9% 1000 Ml IV 04/25/22 10:05 Infused .Q1H1M STA Infusion Sodium Chloride Confirm 04/25/22 09:11 Sodium Chloride 0.9% 1000 Ml Administered 04/25/22 09:12 Dose 1,000 mls @ ud .ROUTE .STK-MED ONE Morphine Sulfate 4 mg 04/25/22 09:05 04/25/22 09:17 Morphine Sulfate 4 Mg/Ml Injection IV 04/25/22 09:06 4 mg STAT ONE Administration Morphine Sulfate Confirm 04/25/22 09:11 Morphine Sulfate 4 Mg/Ml Injection Administered 04/25/22 09:12 Dose 4 mg .ROUTE .STK-MED ONE Lab/Rad Data: Laboratory Result Diagrams 04/25/22 09:21 04/25/22 09:21 Laboratory Results 04/25/22 04/25/22 04/25/22 Range/Units 09:21 09:21 09:21 WBC (4.0-10.5) x10^3/uL RBC (4.1-5.6) x10^6/uL Hgb (12.5-18.0) g/dL Hct (42-50) % MCV (78-100) fL MCH (26-32) pg MCHC (32-36) g/dL RDW (11.5-14.0) % Plt Count (150-450) x10^3/uL MPV (7.5-11.0) fL Gran % (36.0-66.0) % Immature Gran % (Auto) (0.00-0.4) % Nucleat RBC Rel Count (0.00-0.1) % Eos # (Auto) (0-0.5) x10^3/uL Immature Gran # (Auto) (0.00-0.03) x10^3u/L Absolute Lymphs (auto) (1.0-4.6) x10^3/uL Absolute Monos (auto) (0.0-1.3) x10^3/uL Absolute Nucleated RBC (0.00-0.01) x10^3u/L Lymphocytes % (24.0-44.0) % Monocytes % (0.0-12.0) % Eosinophils % (0.00-5.0) % Basophils % (0.0-0.4) % Absolute Granulocytes (1.4-6.9) x10^3/uL Basophils # (0-0.4) x10^3/uL PT 10.9 (9.4-12.5) SECONDS INR 1.00 (0.8-3.0) D-Dimer 0.57 H (0.0-0.50) mg/L Sodium (137-145) mmol/L Potassium (3.5-5.1) mmol/L Chloride (98-107) mmol/L Carbon Dioxide (22-30) mmol/L Anion Gap (5-15) MEQ/L BUN (9-20) mg/dL Creatinine (0.66-1.25) mg/dL Estimated GFR ML/MIN Glucose (74-106) mg/dL Calcium (8.4-10.2) mg/dL Total Bilirubin (0.2-1.3) mg/dL AST (17-59) U/L ALT (0-50) U/L Alkaline Phosphatase (38-126) U/L Creatine Kinase (55-170) U/L Troponin I < 0.012 (0.000-0.034) ng/mL NT-Pro-B Natriuret Pep (<300) pg/mL Serum Total Protein (6.3-8.2) g/dL Albumin (3.5-5.0) g/dL Lipase (23-300) U/L Procalcitonin (0.030-0.080) ng/mL Influenza Type A Ag NEGATIVE (NEGATIVE) Influenza Type B Ag NEGATIVE (NEGATIVE) RSV (PCR) NEGATIVE (Negative) SARS-CoV-2 (PCR) NEGATIVE (NEGATIVE) 04/25/22 04/25/22 Range/Units 09:21 09:21 WBC 13.3 H (4.0-10.5) x10^3/uL RBC 5.33 (4.1-5.6) x10^6/uL Hgb 15.3 (12.5-18.0) g/dL Hct 46.0 (42-50) % MCV 86.3 (78-100) fL MCH 28.7 (26-32) pg MCHC 33.3 (32-36) g/dL RDW 12.6 (11.5-14.0) % Plt Count 200 (150-450) x10^3/uL MPV 10.6 (7.5-11.0) fL Gran % 86.2 H (36.0-66.0) % Immature Gran % (Auto) 0.4 (0.00-0.4) % Nucleat RBC Rel Count 0.0 (0.00-0.1) % Eos # (Auto) 0.08 (0-0.5) x10^3/uL Immature Gran # (Auto) 0.05 H (0.00-0.03) x10^3u/L Absolute Lymphs (auto) 1.22 (1.0-4.6) x10^3/uL Absolute Monos (auto) 0.44 (0.0-1.3) x10^3/uL Absolute Nucleated RBC 0.00 (0.00-0.01) x10^3u/L Lymphocytes % 9.2 L (24.0-44.0) % Monocytes % 3.3 (0.0-12.0) % Eosinophils % 0.6 (0.00-5.0) % Basophils % 0.3 (0.0-0.4) % Absolute Granulocytes 11.49 H (1.4-6.9) x10^3/uL Basophils # 0.04 (0-0.4) x10^3/uL PT (9.4-12.5) SECONDS INR (0.8-3.0) D-Dimer (0.0-0.50) mg/L Sodium 139 (137-145) mmol/L Potassium 4.0 (3.5-5.1) mmol/L Chloride 102 (98-107) mmol/L Carbon Dioxide 26 (22-30) mmol/L Anion Gap 14.5 (5-15) MEQ/L BUN 19 (9-20) mg/dL Creatinine 1.10 (0.66-1.25) mg/dL Estimated GFR > 60.0 ML/MIN Glucose 264 H (74-106) mg/dL Calcium 9.5 (8.4-10.2) mg/dL Total Bilirubin 0.90 (0.2-1.3) mg/dL AST 32 (17-59) U/L ALT 24 (0-50) U/L Alkaline Phosphatase 147 H (38-126) U/L Creatine Kinase 84 (55-170) U/L Troponin I (0.000-0.034) ng/mL NT-Pro-B Natriuret Pep 219 (<300) pg/mL Serum Total Protein 7.9 (6.3-8.2) g/dL Albumin 4.4 (3.5-5.0) g/dL Lipase 119 (23-300) U/L Procalcitonin 0.079 (0.030-0.080) ng/mL Influenza Type A Ag (NEGATIVE) Influenza Type B Ag (NEGATIVE) RSV (PCR) (Negative) SARS-CoV-2 (PCR) (NEGATIVE) - Progress Progress: improved Progress Note: 04/25/22 09:26 differential diagnosis includes: PNA, STEMI, NSTEMI, other infection, musculoskeletal pain, pneumothorax - We'll obtain basic labs, fluids, EKG, troponin, chest x-ray - EKG shows no ST changes - my read. See full read below. - O2 saturations consistently greater than 95%. - CXR shows no pneumonia, pneumothorax - my read 04/25/22 11:40 Patient feeling improved overall. No longer vomiting. Possible mild reaction to IV contrast. Patient will no longer get it in the future. We will put it as an allergy in the computer. We did discuss this with patient. No further episodes of vomiting here. Patient was given 10 mg of Decadron for allergic reaction and was improved. No throat swelling. No oral issues. CT chest abdomen pelvis returned normal. No abnormality. Patient's blood pressure returned to normal with only nausea, pain medication. Patient has not vomited since arriving to the emergency department. Most likely a viral gastroenteritis or other nonspecific virus. However, patient will need close follow-up with PCP abdominal reexam in 24 to 40 hours. Patient may return here at any point time for new or changing symptoms. I did discuss all this with the patient and his . They state their understanding. Counseled pt/family regarding: lab results, diagnosis, need for follow-up, rad results Medical Desision Making - Independent Historian Additional History obtained from: Spouse - External Record(s) Reviewed Records reviewed as a part of evaluation & management: Discharge Summary - Diagnostic Testing Diagnostic test were ordered, analyzed, and reviewed by me: Yes Radiological Interpretation: Interpreted by me - Risk of complications The pt has a mod risk of morbidity or mortality based on: Need for prescription drug management - Departure Departure Disposition: Home Clinical Impression: Nausea & vomiting Condition: Stable Critical Care Time: No Referrals: GRZEGORZ JOHNSON MD [Primary Care Provider] - Follow up/PCP as directed Instructions: Severe Abdominal Pain, Adult (DC) Prescriptions: Ondansetron ODT 4 MG [Zofran Odt 4 mg] 4 mg PO Q6H PRN PRN #10 tablet PRN Reason: Vomiting
[2022-04-25 09:34] LABS: D-DIMER QUANTITATIVE 0.57 mg/L (0.0-0.50); PROTIME 10.9 SECONDS (9.4-12.5)
[2022-04-25 09:50] LABS: ALBUMIN 4.4 g/dL (3.5-5.0); ALKALINE PHOSPHATASE 147 U/L (38-126); ANION GAP 14.5 MEQ/L (5-15); BLOOD UREA NITROGEN 19 mg/dL (9-20); CHLORIDE 102 mmol/L (98-107); CK-Creatinine Phosphokinase 84 U/L (55-170); Calcium 9.5 mg/dL (8.4-10.2); Carbon Dioxide 26 mmol/L (22-30); EST GLOMERULAR FILTRATION RATE > 60.0 ML/MIN; Glucose 264 mg/dL (74-106); LIPASE 119 U/L (23-300); NT PRO BNPII 219 pg/mL (<300); PROCALCITONIN 0.079 ng/mL (0.030-0.080); SGOT/AST 32 U/L (17-59); SGPT/ALT 24 U/L (0-50); SODIUM 139 mmol/L (137-145); Total Protein 7.9 g/dL (6.3-8.2)
[2022-04-25 09:55] LABS: INFLUENZA A NEGATIVE (NEGATIVE); INFLUENZA B NEGATIVE (NEGATIVE); RESPIRATORY SYNCTIAL VIRUS NEGATIVE (Negative); SARS-CoV-2 Xpert Express NEGATIVE (NEGATIVE)
[2022-04-25] MEDS ORDERED: DECADRON 10MG INJ. IV ONE (10:45)
[2022-04-25] MEDS ORDERED: DECADRON 10MG INJ. ONE (10:47)
[2022-04-25 10:56] VITALS: BP 146/69; PULSE 86
--- NOTE | 2022-04-25 11:31 | XRAY ---
Indication: Nausea and vomiting. Hypertension. Elevated d-dimer. Multiple contiguous axial images obtained through the chest using 80 cc Isovue 370 contrast and PE protocol. Comparison: None Good opacification of the pulmonary arteries to include the lobar and segmental branches. No pulmonary embolus. Heart not enlarged with CABG. Aorta mildly arteriosclerotic without aneurysm/dissection. No pathologic mediastinal/hilar lymphadenopathy. Lungs demonstrates 1.1 cm posterior right lung base noncalcified nodule and minimal bilateral dependent atelectasis. No infiltrate, effusion, or pneumothorax. Bony thorax intact with mild degenerative changes throughout the spine and sternotomy wires. CT abdomen/pelvis reported separately. Impression: 1. Negative pulmonary embolus. No acute cardiopulmonary abnormalities. 2. 1.1 cm right lung base noncalcified nodule. Finding unchanged dating back to September 13, 2019 CT abdomen/pelvis exam and favored to be benign given stability over the years. Comment: I was called to CT to evaluate patient following exam. radiology technologist informs me patient complaining of "itching and hives." I found patient sitting on edge of cart in no apparent distress. Denied chest pain or difficulty breathing. Auscultation of both lungs clear. Heart normal rate and rhythm. Suspect mild allergic reaction to the IV contrast. Patient was returned to ER department.
--- NOTE | 2022-04-25 11:35 | XRAY ---
Indication: Nausea and vomiting. Hypertension. Elevated d-dimer. Multiple contiguous axial images obtained through the abdomen and pelvis using 80 cc Isovue 370 contrast. Comparison: Numerous priors, most recent January 26, 2021. CT chest reported separately. Noncontrasted stomach and bowel loops nonobstructed with normal appendix. No free fluid/air. Stable incidental enlarged prostate gland and small left adrenal adenoma. Remaining liver, gallbladder, pancreas, spleen, adrenal glands, kidneys, ureters, and bladder are unremarkable. Stable mild scattered vascular calcifications. No AAA or pathologic retroperitoneal lymphadenopathy. Osseous structures intact again with mild degenerative changes throughout the spine. Stable small fatty left inguinal hernia. Impression: 1. Again chronic findings including enlarged prostate gland, left adrenal adenoma, fatty left inguinal hernia, and chronic bony findings. 2. Remaining CT abdomen/pelvis with contrast exam is negative. Comment: I was called to CT to evaluate patient following exam. chief radiologic technologist informs me patient complaining of "itching and hives." I found patient sitting on edge of cart in no apparent distress. Denied chest pain or difficulty breathing. Auscultation of both lungs clear. Heart normal rate and rhythm. Suspect mild allergic reaction to the IV contrast. Patient was returned to ER department.
[2022-04-25 11:41] VITALS: O2SAT 100
== END 2022-04-25 11:58 | disposition home or self-care (01) ==
LOC: ED 08:54
DX: R11.2 Nausea with vomiting, unspecified (principal); R10.9 Unspecified abdominal pain; Z79.4 Long term (current) use of insulin; Z79.899 Other long term (current) drug therapy; E11.9 Type 2 diabetes mellitus without complications; E78.5 Hyperlipidemia, unspecified; I10 Essential (primary) hypertension; I25.2 Old myocardial infarction; Z20.828 Contact with and (suspected) exposure to other viral communicable diseases
CPT/HCPCS: 0241U; 36000; 36415; 71045; 71260; 74177; 80053; 82550; 83690; 83880; 84145; 84484; 85025; 85379; 85610; 93005; 93041; 96360; 96374; 96375; 99284; J1100; J1200; J2270

== ENCOUNTER 2022-04-30 09:57 | Observation (INO) | payer MEDICARE, OTHER ==
[2022-04-30] MEDS ORDERED: Hydromorphone 1 mg/ml Injection IV ONE ×2 (10:05→11:17)
[2022-04-30] MEDS ORDERED: Sodium Chloride 0.9% 1000 ML 1,000 ML IV STA (10:05)
[2022-04-30] MEDS ORDERED: Reglan 10 MG/2 ML IV ONE (10:08)
[2022-04-30] MEDS ORDERED: APRESOLINE 20 MG/ML INJ ONE (10:12)
--- NOTE | 2022-04-30 10:14 | ERPHSYRPT ---
- History of Present Illness Time Seen by Provider: 04/30/22 10:09 Historian: patient Exam Limitations: no limitations Physician History: This is Domo Raygoza dictating on a patient who is 66 years old who presents with a complaint of several hours of constant nausea repeated vomiting and abdominal pain. He has had intermittent nausea vomiting and abdominal pain for 3 weeks. He has also chills throughout the night. He has no diarrhea at any time. He does also report an elevated blood pressure of 200/130 per EMS. He was seen in the ER last Saturday or 5 days ago he was found to have a negative work-up essentially he did have a reaction to the IV dye for the CT scan. He was discharged from the ER at that time to done well until last night. Timing/Duration: hour(s) (Approximately 12 hours) Activities at Onset: none Quality: aching, cramping, stabbing Abdominal Pain Onset Location: epigastric Pain Radiation: no radiation Severity of Pain-Max: severe Severity of Pain-Current: severe Modifying Factors: Improves With: vomiting Associated Symptoms: fever/chills, fatigue, nausea, vomiting Previous symptoms: same symptoms as today Allergies/Adverse Reactions: Iodinated Contrast Media Allergy (Verified 04/30/22 10:00) Home Medications: Insulin Glargine [Lantus Insulin] 50 units SQ BID 01/15/20 [History] Pravastatin Sodium 40 mg PO DAILY 01/15/20 [History] lisinopriL [Lisinopril] 5 mg PO DAILY 01/15/20 [History] Aspirin EC 81 mg [Ecotrin 81 mg] 1 tab PO DAILY 04/30/22 [History] Metoprolol Tartrate 25 mg [Lopressor 25MG Tab] 1 tab PO BID 04/30/22 [History] Semaglutide [Ozempic] 0.25 mg SQ WEEKLY 04/30/22 [History] Hx Tetanus, Diphtheria Vaccination/Date Given: No Hx Influenza Vaccination/Date Given: No Hx Pneumococcal Vaccination/Date Given: No Travel Risk - Vaccine Status Have you recieved a Covid-19 vaccination: Yes Vessel Ordinary Seaman: Moderna - Vaccination Dates Date of 2cond Vaccination (if applicable): 04/2020 Comment: booster 1 month ago - Review of Systems Constitutional: Chills, No Fever Eyes: No Symptoms Ears, Nose, & Throat: No Symptoms Respiratory: No Cough, No Dyspnea Cardiac: No Chest Pain, No Edema, No Syncope Abdominal/Gastrointestinal: Abdominal Pain, Nausea, Vomiting, No Diarrhea Genitourinary Symptoms: No Dysuria Musculoskeletal: No Back Pain, No Neck Pain Skin: No Rash Neurological: No Dizziness, No Focal Weakness, No Sensory Changes Psychological: No Symptoms Endocrine: No Symptoms All Other Systems: Reviewed and Negative - Past Medical History Pertinent Past Medical History: Yes Neurological History: No Pertinent History ENT History: Cataracts Cardiac History: High Cholesterol, Hypertension, Myocardial Infarction (MS) Respiratory History: Bronchitis Endocrine Medical History: Diabetes Type II Musculoskeletal History: Arthritis, Fractures GI Medical History: GERD Psycho-Social History: No Pertinent History Male Reproductive Disorders: Prostate Problems - Past Surgical History Past Surgical History: Yes Neuro Surgical History: No Pertinent History Cardiac: CABG, Cardiac Catheterization Respiratory: No Pertinent History Gastrointestinal: No Pertinent History Genitourinary: No Pertinent History Musculoskeletal: Orthopedic Surgery Male Surgical History: No Pertinent History Other Surgical History: R shoulder 2020 rotator cuff/bicep torn in two - Social History Smoking Status: Former smoker Exposure to second hand smoke: Yes Drug Use: marijuana Patient Lives Alone: No Significant Family History: no pertinent family hx - Nursing Vital Signs Nursing Vital Signs: Initial Vital Signs Temperature 99.2 F 04/30/22 10:01 Pulse Rate 81 04/30/22 10:01 Respiratory Rate 20 04/30/22 10:01 Blood Pressure 197/89 04/30/22 10:01 O2 Sat by Pulse Oximetry 97 04/30/22 10:01 Pain Scale Pain Intensity 5 - Physical Exam General Appearance: moderate distress Eye Exam: PERRL/EOMI, eyes nml inspection Ears, Nose, Throat Exam: dry mucous membranes Neck Exam: normal inspection, non-tender, supple, full range of motion Respiratory Exam: normal breath sounds, lungs clear, No respiratory distress Cardiovascular Exam: regular rate/rhythm, normal heart sounds Gastrointestinal/Abdomen Exam: tenderness, guarding, No normal bowel sounds, No rebound Back Exam: normal inspection, normal range of motion, No CVA tenderness, No vertebral tenderness Extremity Exam: normal inspection, normal range of motion, pelvis stable Skin Exam: normal color, warm, dry SpO2 Interpretation: normal SpO2: 100 O2 Delivery: Room Air - Course Nursing assessment & vital signs reviewed: Yes EKG Interpreted by Me: RATE (79), Sinus Rhythm, NORMAL AXIS, 1st degree AV Bl ock, NORMAL QRS, Non-specific ST Changes - Radiology Exams Chest X-ray Interpretation: Reviewed by me, Negative - CT Exams Abdomen/Pelvis CT Interpretation: Other (CT reviewed with findings from the radiologist no change from a few days ago.) Ordered Tests: Active Orders 24 hr Category Date Time Status EKG-ER Only STAT Care 04/30/22 10:05 Active IV Insertion STAT Care 04/30/22 10:05 Active ABDOMEN AND PELVIS W/0 CONTRAS [CT] Stat Exams 04/30/22 10:06 Completed CHEST 1 VIEW (PORTABLE) Stat Exams 04/30/22 10:05 Completed AMYLASE Stat Lab 04/30/22 10:20 Completed BLOOD CULTURE Stat Lab 04/30/22 10:20 Received CBC W DIFF Stat Lab 04/30/22 10:05 Completed CMP Stat Lab 04/30/22 10:20 Completed LIPASE Stat Lab 04/30/22 10:20 Completed Lactic Acid Stat Lab 04/30/22 10:20 Completed PROTIME WITH INR Stat Lab 04/30/22 10:25 Completed TROPONIN Q4H Lab 04/30/22 10:25 Completed TROPONIN Q4H Lab 04/30/22 14:15 Ordered TROPONIN Q4H Lab 04/30/22 18:15 Ordered UA W/RFX UR CULTURE Stat Lab 04/30/22 10:48 Completed Urine Triage Profile Stat Lab 04/30/22 10:48 Completed Medication Summary Discontinued Medications Generic Name Dose Route Start Last Admin Trade Name Freq PRN Reason Stop Dose Admin Hydralazine HCl Confirm 04/30/22 10:12 Hydralazine Hcl 20 Mg/Ml Vial Administered 04/30/22 10:13 Dose 20 mg .ROUTE .STK-MED ONE Hydralazine HCl 10 mg 04/30/22 10:16 04/30/22 10:16 Hydralazine Hcl 20 Mg/Ml Vial IV 04/30/22 10:17 10 mg STAT ONE Administration Hydralazine HCl 10 mg 04/30/22 11:19 04/30/22 11:21 Hydralazine Hcl 20 Mg/Ml Vial IV 04/30/22 11:20 10 mg STAT ONE Administration Hydromorphone HCl 1 mg 04/30/22 10:05 04/30/22 10:24 Hydromorphone 1 Mg/1ml Inj 1 Mg/Ml Syringe IV 04/30/22 10:06 1 mg STAT ONE Administration Hydromorphone HCl Confirm 04/30/22 10:21 Hydromorphone 1 Mg/1ml Inj 1 Mg/Ml Syringe Administered 04/30/22 10:22 Dose 1 mg .ROUTE .STK-MED ONE Hydromorphone HCl 1 mg 04/30/22 11:17 04/30/22 11:24 Hydromorphone 1 Mg/1ml Inj 1 Mg/Ml Syringe IV 04/30/22 11:18 1 mg STAT ONE Administration Hydromorphone HCl Confirm 04/30/22 11:19 Hydromorphone 1 Mg/1ml Inj 1 Mg/Ml Syringe Administered 04/30/22 11:20 Dose 1 mg .ROUTE .STK-MED ONE Sodium Chloride 1,000 mls @ 999 mls/hr 04/30/22 10:05 04/30/22 11:27 Sodium Chloride 0.9% 1000 Ml IV 04/30/22 11:05 Infused .Q1H1M STA Infusion Sodium Chloride Confirm 04/30/22 10:21 Sodium Chloride 0.9% 1000 Ml Administered 04/30/22 10:22 Dose 1,000 mls @ ud .ROUTE .STK-MED ONE Metoclopramide HCl 10 mg 04/30/22 10:08 04/30/22 10:23 Metoclopramide Hcl 10 Mg/2 Ml Vial IV 04/30/22 10:09 10 mg STAT ONE Administration Metoclopramide HCl Confirm 04/30/22 10:21 Metoclopramide Hcl 10 Mg/2 Ml Vial Administered 04/30/22 10:22 Dose 10 mg .ROUTE .STK-MED ONE Lab/Rad Data: Laboratory Result Diagrams 04/30/22 10:05 04/30/22 10:20 Laboratory Results 04/30/22 04/30/22 04/30/22 Range/Units 10:48 10:48 10:25 WBC (4.0-10.5) x10^3/uL RBC (4.1-5.6) x10^6/uL Hgb (12.5-18.0) g/dL Hct (42-50) % MCV (78-100) fL MCH (26-32) pg MCHC (32-36) g/dL RDW (11.5-14.0) % Plt Count (150-450) x10^3/uL MPV (7.5-11.0) fL Gran % (36.0-66.0) % Immature Gran % (Auto) (0.00-0.4) % Nucleat RBC Rel Count (0.00-0.1) % Eos # (Auto) (0-0.5) x10^3/uL Immature Gran # (Auto) (0.00-0.03) x10^3u/L Absolute Lymphs (auto) (1.0-4.6) x10^3/uL Absolute Monos (auto) (0.0-1.3) x10^3/uL Absolute Nucleated RBC (0.00-0.01) x10^3u/L Lymphocytes % (24.0-44.0) % Monocytes % (0.0-12.0) % Eosinophils % (0.00-5.0) % Basophils % (0.0-0.4) % Absolute Granulocytes (1.4-6.9) x10^3/uL Basophils # (0-0.4) x10^3/uL PT (9.4-12.5) SECONDS INR (0.8-3.0) Sodium (137-145) mmol/L Potassium (3.5-5.1) mmol/L Chloride (98-107) mmol/L Carbon Dioxide (22-30) mmol/L Anion Gap (5-15) MEQ/L BUN (9-20) mg/dL Creatinine (0.66-1.25) mg/dL Estimated GFR ML/MIN Glucose (74-106) mg/dL Lactic Acid (0.4-2.0) Calcium (8.4-10.2) mg/dL Total Bilirubin (0.2-1.3) mg/dL AST (17-59) U/L ALT (0-50) U/L Alkaline Phosphatase (38-126) U/L Troponin I < 0.012 (0.000-0.034) ng/mL Serum Total Protein (6.3-8.2) g/dL Albumin (3.5-5.0) g/dL Amylase (30-110) U/L Lipase (23-300) U/L Urine Color Yellow (Yellow) Urine Appearance Clear (Clear) Urine pH 8.0 (4.6-8.0) Ur Specific [place] 1.020 (1.005-1.030) Urine Protein Trace A (Negative) Urine Glucose (UA) 500 A (Negative) mg/dL Urine Ketones Trace A (Negative) Urine Blood Negative (Negative) Urine Nitrite Negative (Negative) Urine Bilirubin Negative (Negative) Urine Urobilinogen 0.2 (0.2) mg/dL Ur Leukocyte Esterase Negative (Negative) U Hyaline Cast (Auto) NONE SEEN (0-2) /LPF Urine Microscopic RBC 0-2 (0-5) /HPF Urine Microscopic WBC 0-2 (0-5) /HPF Ur Epithelial Cells None Seen (None Seen) /HPF Urine Bacteria None Seen (None Seen) /HPF Urine Culture Reflexed NO (NO) Urine Opiates Level NEGATIVE (NEGATIVE) Ur Methadone NEGATIVE (NEGATIVE) Urine Barbiturates NEGATIVE (NEGATIVE) Ur Phencyclidine (PCP) NEGATIVE (NEGATIVE) Urine Amphetamine NEGATIVE (NEGATIVE) U Benzodiazepine Level NEGATIVE (NEGATIVE) Urine Cocaine NEGATIVE (NEGATIVE) Urine Marijuana (THC) POSITIVE (NEGATIVE) 04/30/22 04/30/22 04/30/22 Range/Units 10:25 10:20 10:20 WBC (4.0-10.5) x10^3/uL RBC (4.1-5.6) x10^6/uL Hgb (12.5-18.0) g/dL Hct (42-50) % MCV (78-100) fL MCH (26-32) pg MCHC (32-36) g/dL RDW (11.5-14.0) % Plt Count (150-450) x10^3/uL MPV (7.5-11.0) fL Gran % (36.0-66.0) % Immature Gran % (Auto) (0.00-0.4) % Nucleat RBC Rel Count (0.00-0.1) % Eos # (Auto) (0-0.5) x10^3/uL Immature Gran # (Auto) (0.00-0.03) x10^3u/L Absolute Lymphs (auto) (1.0-4.6) x10^3/uL Absolute Monos (auto) (0.0-1.3) x10^3/uL Absolute Nucleated RBC (0.00-0.01) x10^3u/L Lymphocytes % (24.0-44.0) % Monocytes % (0.0-12.0) % Eosinophils % (0.00-5.0) % Basophils % (0.0-0.4) % Absolute Granulocytes (1.4-6.9) x10^3/uL Basophils # (0-0.4) x10^3/uL PT 10.9 (9.4-12.5) SECONDS INR 1.00 (0.8-3.0) Sodium 139 (137-145) mmol/L Potassium 4.4 (3.5-5.1) mmol/L Chloride 106 (98-107) mmol/L Carbon Dioxide 22 (22-30) mmol/L Anion Gap 15.3 H (5-15) MEQ/L BUN 22 H (9-20) mg/dL Creatinine 0.98 (0.66-1.25) mg/dL Estimated GFR > 60.0 ML/MIN Glucose 228 H (74-106) mg/dL Lactic Acid 2.7 H (0.4-2.0) Calcium 8.9 (8.4-10.2) mg/dL Total Bilirubin 0.90 (0.2-1.3) mg/dL AST 33 (17-59) U/L ALT 28 (0-50) U/L Alkaline Phosphatase 136 H (38-126) U/L Troponin I (0.000-0.034) ng/mL Serum Total Protein 7.5 (6.3-8.2) g/dL Albumin 4.2 (3.5-5.0) g/dL Amylase 87 (30-110) U/L Lipase 274 (23-300) U/L Urine Color (Yellow) Urine Appearance (Clear) Urine pH (4.6-8.0) Ur Specific [place] (1.005-1.030) Urine Protein (Negative) Urine Glucose (UA) (Negative) mg/dL Urine Ketones (Negative) Urine Blood (Negative) Urine Nitrite (Negative) Urine Bilirubin (Negative) Urine Urobilinogen (0.2) mg/dL Ur Leukocyte Esterase (Negative) U Hyaline Cast (Auto) (0-2) /LPF Urine Microscopic RBC (0-5) /HPF Urine Microscopic WBC (0-5) /HPF Ur Epithelial Cells (None Seen) /HPF Urine Bacteria (None Seen) /HPF Urine Culture Reflexed (NO) Urine Opiates Level (NEGATIVE) Ur Methadone (NEGATIVE) Urine Barbiturates (NEGATIVE) Ur Phencyclidine (PCP) (NEGATIVE) Urine Amphetamine (NEGATIVE) U Benzodiazepine Level (NEGATIVE) Urine Cocaine (NEGATIVE) Urine Marijuana (THC) (NEGATIVE) 04/30/22 Range/Units 10:05 WBC 8.8 (4.0-10.5) x10^3/uL RBC 5.07 (4.1-5.6) x10^6/uL Hgb 14.7 (12.5-18.0) g/dL Hct 45.3 (42-50) % MCV 89.3 (78-100) fL MCH 29.0 (26-32) pg MCHC 32.5 (32-36) g/dL RDW 12.3 (11.5-14.0) % Plt Count 162 (150-450) x10^3/uL MPV 10.4 (7.5-11.0) fL Gran % 85.1 H (36.0-66.0) % Immature Gran % (Auto) 0.3 (0.00-0.4) % Nucleat RBC Rel Count 0.0 (0.00-0.1) % Eos # (Auto) 0.05 (0-0.5) x10^3/uL Immature Gran # (Auto) 0.03 (0.00-0.03) x10^3u/L Absolute Lymphs (auto) 0.90 L (1.0-4.6) x10^3/uL Absolute Monos (auto) 0.31 (0.0-1.3) x10^3/uL Absolute Nucleated RBC 0.00 (0.00-0.01) x10^3u/L Lymphocytes % 10.2 L (24.0-44.0) % Monocytes % 3.5 (0.0-12.0) % Eosinophils % 0.6 (0.00-5.0) % Basophils % 0.3 (0.0-0.4) % Absolute Granulocytes 7.48 H (1.4-6.9) x10^3/uL Basophils # 0.03 (0-0.4) x10^3/uL PT (9.4-12.5) SECONDS INR (0.8-3.0) Sodium (137-145) mmol/L Potassium (3.5-5.1) mmol/L Chloride (98-107) mmol/L Carbon Dioxide (22-30) mmol/L Anion Gap (5-15) MEQ/L BUN (9-20) mg/dL Creatinine (0.66-1.25) mg/dL Estimated GFR ML/MIN Glucose (74-106) mg/dL Lactic Acid (0.4-2.0) Calcium (8.4-10.2) mg/dL Total Bilirubin (0.2-1.3) mg/dL AST (17-59) U/L ALT (0-50) U/L Alkaline Phosphatase (38-126) U/L Troponin I (0.000-0.034) ng/mL Serum Total Protein (6.3-8.2) g/dL Albumin (3.5-5.0) g/dL Amylase (30-110) U/L Lipase (23-300) U/L Urine Color (Yellow) Urine Appearance (Clear) Urine pH (4.6-8.0) Ur Specific [place] (1.005-1.030) Urine Protein (Negative) Urine Glucose (UA) (Negative) mg/dL Urine Ketones (Negative) Urine Blood (Negative) Urine Nitrite (Negative) Urine Bilirubin (Negative) Urine Urobilinogen (0.2) mg/dL Ur Leukocyte Esterase (Negative) U Hyaline Cast (Auto) (0-2) /LPF Urine Microscopic RBC (0-5) /HPF Urine Microscopic WBC (0-5) /HPF Ur Epithelial Cells (None Seen) /HPF Urine Bacteria (None Seen) /HPF Urine Culture Reflexed (NO) Urine Opiates Level (NEGATIVE) Ur Methadone (NEGATIVE) Urine Barbiturates (NEGATIVE) Ur Phencyclidine (PCP) (NEGATIVE) Urine Amphetamine (NEGATIVE) U Benzodiazepine Level (NEGATIVE) Urine Cocaine (NEGATIVE) Urine Marijuana (THC) (NEGATIVE) - Progress Progress: improved, pain not gone completely Medical Desision Making - Independent Historian Additional History obtained from: EMS - External Record(s) Reviewed Records reviewed as a part of evaluation & management: Discharge Summary - Discussion of managment Care discussed with:: PCP Reviewed:: Test results, Need for additional workup Agreed on:: Treatment plan, place in obs Will see patient: in hospital - Social Determinants of Health Limited access to: transportation - Diagnostic Testing Diagnostic test were ordered, analyzed, and reviewed by me: Yes Radiological Interpretation: Reviewed by me - Risk of complications The pt has a mod risk of morbidity or mortality based on: Need for prescription drug management - Departure Departure Disposition: Observation Clinical Impression: Abdominal pain, Nausea and vomiting Condition: Stable Critical Care Time: No Referrals: GRZEGORZ JOHNSON MD [Primary Care Provider] - Follow up/PCP as directed
[2022-04-30] MEDS ORDERED: APRESOLINE 20 MG/ML INJ IV ONE ×2 (10:16→11:19)
[2022-04-30] MEDS ORDERED: Sodium Chloride 0.9% 1000 ML 1,000 ML ONE (10:21)
[2022-04-30] MEDS ORDERED: Hydromorphone 1 mg/ml Injection ONE ×2 (10:21→11:19)
[2022-04-30] MEDS ORDERED: Reglan 10 MG/2 ML ONE (10:21)
[2022-04-30 10:30] LABS: Absolute Neutrophil Ct (ANC) 7.48 x10^3/uL (1.4-6.9); BASOPHIL % 0.3 % (0.0-0.4); Basophil (Absolute #) 0.03 x10^3/uL (0-0.4); Eosinophil % 0.6 % (0.00-5.0); Eosinophil (Absolute #) 0.05 x10^3/uL (0-0.5); Hematocrit 45.3 % (42-50); Hemoglobin 14.7 g/dL (12.5-18.0); IMMATURE GRAN # 0.03 x10^3u/L (0.00-0.03); IMMATURE GRAN % 0.3 % (0.00-0.4); Lymphocytes % 10.2 % (24.0-44.0); Mean Cell Volume 89.3 fL (78-100); Mean Corpuscular Hgb Concent. 32.5 g/dL (32-36); Mean Platelet Volume 10.4 fL (7.5-11.0); Monocyte (Absolute #) 0.31 x10^3/uL (0.0-1.3); Monocytes % 3.5 % (0.0-12.0); Neutrophil % 85.1 % (36.0-66.0); Platelet Count 162 x10^3/uL (150-450); Red Blood Count 5.07 x10^6/uL (4.1-5.6); Red Cell Distribution Width 12.3 % (11.5-14.0); White Blood Count 8.8 x10^3/uL (4.0-10.5)
[2022-04-30 10:40] LABS: PROTIME 10.9 SECONDS (9.4-12.5)
[2022-04-30 10:41] LABS: ALBUMIN 4.2 g/dL (3.5-5.0); ALKALINE PHOSPHATASE 136 U/L (38-126); AMYLASE 87 U/L (30-110); ANION GAP 15.3 MEQ/L (5-15); BLOOD UREA NITROGEN 22 mg/dL (9-20); CHLORIDE 106 mmol/L (98-107); Calcium 8.9 mg/dL (8.4-10.2); Carbon Dioxide 22 mmol/L (22-30); Creatinine 1 0.98 mg/dL (0.66-1.25); EST GLOMERULAR FILTRATION RATE > 60.0 ML/MIN; Glucose 228 mg/dL (74-106); LIPASE 274 U/L (23-300); Potassium 4.4 mmol/L (3.5-5.1); SGOT/AST 33 U/L (17-59); SGPT/ALT 28 U/L (0-50); SODIUM 139 mmol/L (137-145); Total Protein 7.5 g/dL (6.3-8.2)
--- NOTE | 2022-04-30 10:58 | XRAY ---
Indication: Pain, nausea, and vomiting. Multiple contiguous axial images obtained through the abdomen and pelvis without contrast. Comparison: April 25, 2022 Lung bases demonstrate stable 1.1 cm right lung base benign noncalcified nodule. No infiltrate or effusion. Heart not enlarged. Noncontrasted stomach and bowel loops remain nonobstructed again with normal appendix. Stable incidental nonobstructing left renal punctate calculus bilaterally, enlarged prostate gland, and small left adrenal adenoma. Remaining liver, gallbladder, pancreas, spleen, adrenal glands, kidneys, ureters, and bladder are unremarkable for noncontrast exam. Again mild scattered aortoiliac calcifications without AAA. Osseous structures intact again with mild degenerative changes of the spine. Stable small fatty left inguinal hernia. Impression: No change compared to the ER CT abdomen/pelvis exam 5 days ago. Chronic findings including benign right lung noncalcified nodule, enlarged prostate gland, nonobstructing bilateral punctate calculus, left adrenal adenoma, fatty left inguinal hernia, arteriosclerotic disease, and chronic bony findings. No new/acute findings.
[2022-04-30 10:59] LABS: Appearance Clear (Clear); Bilirubin Negative (Negative); Blood Negative (Negative); Glucose, Urine 500 mg/dL (Negative); Ketones Trace (Negative); Leukocyte Esterase Negative (Negative); Nitrite Negative (Negative); Protein,Urine Dip Trace (Negative); Urobilinogen 0.2 mg/dL (0.2)
--- NOTE | 2022-04-30 11:00 | XRAY ---
Indication: Chest pain, nausea, and vomiting. Comparison: April 25, 2022 Portable chest less inflated crowding both lung bases. No focal infiltrate, consolidation, or large effusion. Heart not enlarged again with CABG. No new/acute findings.
[2022-04-30 11:08] LABS: Bacteria None Seen /HPF (None Seen); Epithelial Cells None Seen /HPF (None Seen); Hyaline Casts NONE SEEN /LPF (0-2); RBC 0-2 /HPF (0-5); WBC 0-2 /HPF (0-5)
[2022-04-30 11:13] LABS: ADD URINE CULTURE? NO (NO)
[2022-04-30 11:16] LABS: Amphetamine,Urine NEGATIVE (NEGATIVE); Barbiturate,Urine NEGATIVE (NEGATIVE); Benzodiazepine,Urine NEGATIVE (NEGATIVE); Cocaine,Urine NEGATIVE (NEGATIVE); Methadone,Urine NEGATIVE (NEGATIVE); Opiate,Urine NEGATIVE (NEGATIVE); PCP,Urine NEGATIVE (NEGATIVE); THC,Urine POSITIVE (NEGATIVE)
[2022-04-30 12:15] LABS: INFLUENZA A NEGATIVE (NEGATIVE); INFLUENZA B NEGATIVE (NEGATIVE); RESPIRATORY SYNCTIAL VIRUS NEGATIVE (Negative); SARS-CoV-2 Xpert Express NEGATIVE (NEGATIVE)
--- NOTE | 2022-04-30 12:50 | XRAY ---
Indication: Nausea and vomiting. Negative same day CT abdomen/pelvis. Right upper quadrant sonogram performed. Comparison: None Pancreas not well evaluated due to overlying bowel gas. Remaining visualized liver, gallbladder, and right kidney are sonographically normal. Common bile duct measures 4.1 mm. Right kidney measures 12.3 cm. Impression: Pancreas not well evaluated. Remaining right upper quadrant sonogram negative. Findings consistent with same day CT abdomen/pelvis exam.
[2022-04-30] MEDS: Zofran 4 MG/2 ML VIAL IV PRN ×2 (14:14→21:27)
[2022-04-30] MEDS: Sodium Chloride 0.9% 1000 ML 1,000 ML IV SCH ×2 (14:21→23:23)
[2022-04-30] MEDS ORDERED: ZOFRAN ODT 4 MG PO PRN (15:21)
[2022-04-30] MEDS ORDERED: NON-FORMULARY ITEM (Semaglutide [Ozempic] 0.25 MG/0.2 ML Pen.Injctr) SQ SCH (15:30)
[2022-04-30] MEDS ORDERED: MEDICATION INTERVENTION MC SCH (15:45)
[2022-04-30] MEDS: Flomax 0.4 MG PO SCH (16:51)
[2022-04-30] MEDS: ZOCOR 20MG PO SCH (16:51)
[2022-04-30] MEDS: Lopressor 25MG Tab PO SCH (16:51)
[2022-04-30] MEDS: ECOTRIN 81 MG PO SCH (16:51)
[2022-04-30] MEDS: Zestril 5 MG PO SCH (16:52)
[2022-04-30] MEDS: Reglan 10 MG/2 ML IV SCH ×2 (16:52→21:27)
[2022-04-30] MEDS: Lantus Insulin SQ SCH (21:27)
[2022-04-30] MEDS ORDERED: BENADRYL 25 MG CAPSULE PO ONE (22:30)
[2022-04-30] MEDS: Hydromorphone 1 mg/ml Injection IV PRN (23:21)
[2022-05-01 05:07] LABS: Absolute Neutrophil Ct (ANC) 8.36 x10^3/uL (1.4-6.9); BASOPHIL % 0.3 % (0.0-0.4); Basophil (Absolute #) 0.04 x10^3/uL (0-0.4); Eosinophil % 1.1 % (0.00-5.0); Eosinophil (Absolute #) 0.13 x10^3/uL (0-0.5); Hematocrit 42.3 % (42-50); Hemoglobin 14.2 g/dL (12.5-18.0); IMMATURE GRAN # 0.04 x10^3u/L (0.00-0.03); IMMATURE GRAN % 0.3 % (0.00-0.4); Lymphocyte (Absolute #) 2.52 x10^3/uL (1.0-4.6); Lymphocytes % 21.2 % (24.0-44.0); Mean Cell Volume 89.1 fL (78-100); Mean Corpuscular Hemoglobin 29.9 pg (26-32); Mean Corpuscular Hgb Concent. 33.6 g/dL (32-36); Mean Platelet Volume 10.8 fL (7.5-11.0); Monocyte (Absolute #) 0.82 x10^3/uL (0.0-1.3); Monocytes % 6.9 % (0.0-12.0); Neutrophil % 70.2 % (36.0-66.0); Platelet Count 179 x10^3/uL (150-450); Red Blood Count 4.75 x10^6/uL (4.1-5.6); White Blood Count 11.9 x10^3/uL (4.0-10.5)
[2022-05-01 05:35] LABS: ALBUMIN 3.7 g/dL (3.5-5.0); ALKALINE PHOSPHATASE 93 U/L (38-126); ANION GAP 10.7 MEQ/L (5-15); BLOOD UREA NITROGEN 17 mg/dL (9-20); CHLORIDE 105 mmol/L (98-107); Calcium 8.6 mg/dL (8.4-10.2); Carbon Dioxide 26 mmol/L (22-30); Creatinine 1 0.96 mg/dL (0.66-1.25); EST GLOMERULAR FILTRATION RATE > 60.0 ML/MIN; Glucose 141 mg/dL (74-106); Potassium 4.1 mmol/L (3.5-5.1); SGOT/AST 25 U/L (17-59); SGPT/ALT 23 U/L (0-50); SODIUM 138 mmol/L (137-145); Total Protein 6.8 g/dL (6.3-8.2)
[2022-05-01] MEDS: Reglan 10 MG/2 ML IV SCH ×4 (08:29→22:19)
[2022-05-01] MEDS: Lantus Insulin SQ SCH ×2 (08:32→22:22)
[2022-05-01] MEDS: Zestril 5 MG PO SCH (08:48)
[2022-05-01] MEDS: Flomax 0.4 MG PO SCH (08:48)
[2022-05-01] MEDS: Lopressor 25MG Tab PO SCH (08:48)
[2022-05-01] MEDS: ZOCOR 20MG PO SCH (08:48)
[2022-05-01] MEDS: Sodium Chloride 0.9% 1000 ML 1,000 ML IV SCH ×2 (08:48→22:19)
[2022-05-01] MEDS: ECOTRIN 81 MG PO SCH (08:49)
[2022-05-01] MEDS ORDERED: PRAVASTATIN SODIUM PO SCH (10:00)
--- NOTE | 2022-05-01 12:58 | PCM.HP ---
History of Present Illness - Chief Complaint Chief Complaint: abdominal pain nausea and vomiting for 5 days History of Present Illness: is a 66 year old male.who presents with a complaint of several hours of constant nausea repeated vomiting and abdominal pain. He has had intermittent n ausea vomiting and abdominal pain for 3 weeks. He has also chills throughout the night. He has no diarrhea at any time. He does also report an elevated blood pressure of 200/130 per EMS. He was seen in the ER last Saturday or 5 days ago he was found to have a negative work-up essentially he did have a reaction to the IV dye for the CT scan. He was discharged from the ER at that time to done well until last night. Timing/Duration: hour(s) (Approximately 12 hours) Activities at Onset: none Quality: aching, cramping, stabbing Abdominal Pain Onset Location: epigastric Pain Radiation: no radiation Severity of Pain-Max: severe Severity of Pain-Current: severe Modifying Factors: Improves With: vomiting Associated Symptoms: fever/chills, fatigue, nausea, vomiting Previous symptoms: same symptoms as today - Review of Systems Constitutional: No Fever, No Chills Eyes: No Symptoms Ears, Nose, & Throat: No Symptoms Respiratory: No Cough, No Short Of Breath Cardiac: No Chest Pain, No Edema, No Syncope Abdominal/Gastrointestinal: Abdominal Pain, Nausea, Vomiting, Diarrhea Genitourinary Symptoms: No Dysuria Musculoskeletal: No Back Pain, No Neck Pain Skin: No Rash Neurological: No Dizziness, No Focal Weakness, No Sensory Changes Psychological: No Symptoms Endocrine: No Symptoms Hematologic/Lymphatic: No Symptoms Immunological/Allergic: No Symptoms Medications & Allergies Home Medications: Home Medication List Insulin Glargine [Lantus Insulin] 25 units SQ BID 01/15/20 [History Confirmed 04/30/22] Pravastatin Sodium 40 mg PO DAILY 01/15/20 [History Confirmed 04/30/22] lisinopriL [Lisinopril] 5 mg PO DAILY 01/15/20 [History Confirmed 04/30/22] Tamsulosin HCl 0.4 mg [Flomax 0.4 MG] 0.4 mg PO DAILY #30 cap 06/01/20 [Rx Confirmed 04/30/22] Ondansetron ODT 4 MG [Zofran Odt 4 mg] 4 mg PO Q6H PRN PRN #10 tablet 04/25/22 [Rx Confirmed 04/30/22] Aspirin EC 81 mg [Ecotrin 81 mg] 1 tab PO DAILY 04/30/22 [History Confirmed 04/30/22] Metoprolol Tartrate 25 mg [Lopressor 25MG Tab] 1 tab PO DAILY 04/30/22 [History Confirmed 04/30/22] Semaglutide [Ozempic] 0.25 mg SQ WEEKLY 04/30/22 [History Confirmed 04/30/22] Allergies/Adverse Reactions: Allergies Allergy/AdvReac Type Severity Reaction Status Date / Time Iodinated Contrast Media Allergy Verified 04/30/22 10:00 - Past Medical History Past Medical History: Yes Neurological History: No Pertinent History ENT History: Cataracts, Other Cardiac History: High Cholesterol, Hypertension, Myocardial Infarction ([place]) Respiratory History: Bronchitis Endocrine Medical History: Diabetes Type II Musculoskelatal History: Arthritis, Fractures GI Medical History: GERD History: No Pertinent History Pyscho-Social History: No Pertinent History Male Reproductive Disorders: Prostate Problems Comment: had cataract surgery and new lenses put in both eyes in 03/2022 - Past Surgical History Past Surgical History: Yes Neuro Surgical History: No Pertinent History Cardiac History: CABG, Cardiac Catheterization Respiratory Surgery: No Pertinent History GI Surgical History: No Pertinent History Genitourinary Surgical Hx: No Pertinent History Musculskeletal Surgical Hx: Orthopedic Surgery Male Surgical History: No Pertinent History Other Surgical History: R shoulder 2020 rotator cuff/bicep torn in two - Social History Smoking Status: Former smoker Exposure to second hand smoke: Yes Alcohol: None Drug Use: marijuana Significant Family History: no pertinent family hx - Physical Exam Vital Signs: Vital Signs - 24 hr Temp Pulse Resp BP Pulse Ox 05/01/22 11:42 97.7 F 84 17 145/72 98 05/01/22 07:24 98.4 F 83 17 155/82 98 05/01/22 04:00 97.8 F 78 17 159/74 94 L 04/30/22 23:19 97.7 F 86 16 137/71 94 L 04/30/22 18:52 97.7 F 86 16 128/67 96 04/30/22 16:00 97.8 F 101 H 18 149/80 97 04/30/22 13:01 97.7 F 96 H 16 141/73 97 04/30/22 13:00 97.7 F 96 H 16 97 General Appearance: no apparent distress, alert Neurologic Exam: alert, oriented x 3, cooperative, normal mood/affect, nml cerebellar function, nml station & gait, sensation nml, No motor deficits Eye Exam: PERRL/EOMI, eyes nml inspection Ears, Nose, Throat Exam: normal ENT inspection, TMs normal, pharynx normal, moist mucous membranes Neck Exam: normal inspection, non-tender, supple, full range of motion Respiratory Exam: normal breath sounds, lungs clear, No respiratory distress Cardiovascular Exam: regular rate/rhythm, normal heart sounds, normal peripheral pulses Gastrointestinal/Abdomen Exam: soft, normal bowel sounds, No tenderness, No mass Back Exam: normal inspection, normal range of motion, No CVA tenderness, No vertebral tenderness Extremity Exam: normal inspection, normal range of motion, pelvis stable Skin Exam: normal color, warm, dry, No rash Lymphatic Exam: No adenopathy Results - Labs Lab/Micro Results: Lab Results-Last 24 Hours 04/30/22 04/30/22 04/30/22 Range/Units 13:23 14:47 16:36 WBC (4.0-10.5) x10^3/uL RBC (4.1-5.6) x10^6/uL Hgb (12.5-18.0) g/dL Hct (42-50) % MCV (78-100) fL MCH (26-32) pg MCHC (32-36) g/dL RDW (11.5-14.0) % Plt Count (150-450) x10^3/uL MPV (7.5-11.0) fL Gran % (36.0-66.0) % Immature Gran % (Auto) (0.00-0.4) % Nucleat RBC Rel Count (0.00-0.1) % Eos # (Auto) (0-0.5) x10^3/uL Immature Gran # (Auto) (0.00-0.03) x10^3u/L Absolute Lymphs (auto) (1.0-4.6) x10^3/uL Absolute Monos (auto) (0.0-1.3) x10^3/uL Absolute Nucleated RBC (0.00-0.01) x10^3u/L Lymphocytes % (24.0-44.0) % Monocytes % (0.0-12.0) % Eosinophils % (0.00-5.0) % Basophils % (0.0-0.4) % Absolute Granulocytes (1.4-6.9) x10^3/uL Basophils # (0-0.4) x10^3/uL Sodium (137-145) mmol/L Potassium (3.5-5.1) mmol/L Chloride (98-107) mmol/L Carbon Dioxide (22-30) mmol/L Anion Gap (5-15) MEQ/L BUN (9-20) mg/dL Creatinine (0.66-1.25) mg/dL Estimated GFR ML/MIN Glucose (74-106) mg/dL POC Glucometer 139 H (74 to 106) mg/dL Hemoglobin A1c (4.5-6.0) % Lactic Acid 1.6 (0.4-2.0) Calcium (8.4-10.2) mg/dL Total Bilirubin (0.2-1.3) mg/dL AST (17-59) U/L ALT (0-50) U/L Alkaline Phosphatase (38-126) U/L Troponin I 0.027 (0.000-0.034) ng/mL Serum Total Protein (6.3-8.2) g/dL Albumin (3.5-5.0) g/dL 04/30/22 04/30/22 04/30/22 Range/Units 17:35 21:19 Unknown WBC (4.0-10.5) x10^3/uL RBC (4.1-5.6) x10^6/uL Hgb (12.5-18.0) g/dL Hct (42-50) % MCV (78-100) fL MCH (26-32) pg MCHC (32-36) g/dL RDW (11.5-14.0) % Plt Count (150-450) x10^3/uL MPV (7.5-11.0) fL Gran % (36.0-66.0) % Immature Gran % (Auto) (0.00-0.4) % Nucleat RBC Rel Count (0.00-0.1) % Eos # (Auto) (0-0.5) x10^3/uL Immature Gran # (Auto) (0.00-0.03) x10^3u/L Absolute Lymphs (auto) (1.0-4.6) x10^3/uL Absolute Monos (auto) (0.0-1.3) x10^3/uL Absolute Nucleated RBC (0.00-0.01) x10^3u/L Lymphocytes % (24.0-44.0) % Monocytes % (0.0-12.0) % Eosinophils % (0.00-5.0) % Basophils % (0.0-0.4) % Absolute Granulocytes (1.4-6.9) x10^3/uL Basophils # (0-0.4) x10^3/uL Sodium (137-145) mmol/L Potassium (3.5-5.1) mmol/L Chloride (98-107) mmol/L Carbon Dioxide (22-30) mmol/L Anion Gap (5-15) MEQ/L BUN (9-20) mg/dL Creatinine (0.66-1.25) mg/dL Estimated GFR ML/MIN Glucose (74-106) mg/dL POC Glucometer 144 H (74 to 106) mg/dL Hemoglobin A1c 8.56 H (4.5-6.0) % Lactic Acid (0.4-2.0) Calcium (8.4-10.2) mg/dL Total Bilirubin (0.2-1.3) mg/dL AST (17-59) U/L ALT (0-50) U/L Alkaline Phosphatase (38-126) U/L Troponin I 0.030 (0.000-0.034) ng/mL Serum Total Protein (6.3-8.2) g/dL Albumin (3.5-5.0) g/dL 05/01/22 05/01/22 05/01/22 Range/Units 05:05 05:05 06:43 WBC 11.9 H (4.0-10.5) x10^3/uL RBC 4.75 (4.1-5.6) x10^6/uL Hgb 14.2 (12.5-18.0) g/dL Hct 42.3 (42-50) % MCV 89.1 (78-100) fL MCH 29.9 (26-32) pg MCHC 33.6 (32-36) g/dL RDW 13.0 (11.5-14.0) % Plt Count 179 (150-450) x10^3/uL MPV 10.8 (7.5-11.0) fL Gran % 70.2 H (36.0-66.0) % Immature Gran % (Auto) 0.3 (0.00-0.4) % Nucleat RBC Rel Count 0.0 (0.00-0.1) % Eos # (Auto) 0.13 (0-0.5) x10^3/uL Immature Gran # (Auto) 0.04 H (0.00-0.03) x10^3u/L Absolute Lymphs (auto) 2.52 (1.0-4.6) x10^3/uL Absolute Monos (auto) 0.82 (0.0-1.3) x10^3/uL Absolute Nucleated RBC 0.00 (0.00-0.01) x10^3u/L Lymphocytes % 21.2 L (24.0-44.0) % Monocytes % 6.9 (0.0-12.0) % Eosinophils % 1.1 (0.00-5.0) % Basophils % 0.3 (0.0-0.4) % Absolute Granulocytes 8.36 H (1.4-6.9) x10^3/uL Basophils # 0.04 (0-0.4) x10^3/uL Sodium 138 (137-145) mmol/L Potassium 4.1 (3.5-5.1) mmol/L Chloride 105 (98-107) mmol/L Carbon Dioxide 26 (22-30) mmol/L Anion Gap 10.7 (5-15) MEQ/L BUN 17 (9-20) mg/dL Creatinine 0.96 (0.66-1.25) mg/dL Estimated GFR > 60.0 ML/MIN Glucose 141 H (74-106) mg/dL POC Glucometer 143 H (74 to 106) mg/dL Hemoglobin A1c (4.5-6.0) % Lactic Acid (0.4-2.0) Calcium 8.6 (8.4-10.2) mg/dL Total Bilirubin 1.20 (0.2-1.3) mg/dL AST 25 (17-59) U/L ALT 23 (0-50) U/L Alkaline Phosphatase 93 (38-126) U/L Troponin I (0.000-0.034) ng/mL Serum Total Protein 6.8 (6.3-8.2) g/dL Albumin 3.7 (3.5-5.0) g/dL 05/01/22 Range/Units 11:30 WBC (4.0-10.5) x10^3/uL RBC (4.1-5.6) x10^6/uL Hgb (12.5-18.0) g/dL Hct (42-50) % MCV (78-100) fL MCH (26-32) pg MCHC (32-36) g/dL RDW (11.5-14.0) % Plt Count (150-450) x10^3/uL MPV (7.5-11.0) fL Gran % (36.0-66.0) % Immature Gran % (Auto) (0.00-0.4) % Nucleat RBC Rel Count (0.00-0.1) % Eos # (Auto) (0-0.5) x10^3/uL Immature Gran # (Auto) (0.00-0.03) x10^3u/L Absolute Lymphs (auto) (1.0-4.6) x10^3/uL Absolute Monos (auto) (0.0-1.3) x10^3/uL Absolute Nucleated RBC (0.00-0.01) x10^3u/L Lymphocytes % (24.0-44.0) % Monocytes % (0.0-12.0) % Eosinophils % (0.00-5.0) % Basophils % (0.0-0.4) % Absolute Granulocytes (1.4-6.9) x10^3/uL Basophils # (0-0.4) x10^3/uL Sodium (137-145) mmol/L Potassium (3.5-5.1) mmol/L Chloride (98-107) mmol/L Carbon Dioxide (22-30) mmol/L Anion Gap (5-15) MEQ/L BUN (9-20) mg/dL Creatinine (0.66-1.25) mg/dL Estimated GFR ML/MIN Glucose (74-106) mg/dL POC Glucometer 155 H (74 to 106) mg/dL Hemoglobin A1c (4.5-6.0) % Lactic Acid (0.4-2.0) Calcium (8.4-10.2) mg/dL Total Bilirubin (0.2-1.3) mg/dL AST (17-59) U/L ALT (0-50) U/L Alkaline Phosphatase (38-126) U/L Troponin I (0.000-0.034) ng/mL Serum Total Protein (6.3-8.2) g/dL Albumin (3.5-5.0) g/dL Accuchecks Date 05/01/22 Date 05/01/22 Date 04/30/22 Date 04/30/22 Time 11:41 Time 07:24 Time 16:39 - Radiology Impressions Radiology Exams & Impressions: Radiology Procedures Category Date Time Status ABDOMEN AND PELVIS W/0 CONTRAS [CT] Stat Exams 04/30/22 10:06 Completed CHEST 1 VIEW (PORTABLE) Stat Exams 04/30/22 10:05 Completed US ABDOMEN LIMITED [ABDOMINAL-LIMITED] [US] Stat Exams 04/30/22 11:55 Completed Assessment/Plan (1) Abdominal pain Current Visit: Yes Status: Acute Qualifiers: Abdominal location: generalized Qualified Code(s): R10.84 - Generalized abdominal pain Assessment & Plan: Chief Complaint Diagnosis abdominal pain Allergies Allergy/AdvReac Type Severity Reaction Status Date / Time Iodinated Contrast Media Allergy Verified 04/30/22 10:00 Vital Signs (Last 24 hours) Temp Pulse Resp BP Pulse Ox 05/01/22 11:42 97.7 F 84 17 145/72 98 05/01/22 07:24 98.4 F 83 17 155/82 98 05/01/22 04:00 97.8 F 78 17 159/74 94 L 04/30/22 23:19 97.7 F 86 16 137/71 94 L 04/30/22 18:52 97.7 F 86 16 128/67 96 04/30/22 16:00 97.8 F 101 H 18 149/80 97 04/30/22 13:01 97.7 F 96 H 16 141/73 97 04/30/22 13:00 97.7 F 96 H 16 141/73 97 Home Medications Medication Instructions Recorded Confirmed Last Taken Type Aspirin EC 81 mg [Ecotrin 81 1 tab PO DAILY 04/30/22 04/30/22 04/29/22 History mg] Metoprolol Tartrate 25 mg 1 tab PO DAILY 04/30/22 04/30/22 04/29/22 History [Lopressor 25MG Tab] Semaglutide [Ozempic] 0.25 mg SQ WEEKLY 04/30/22 04/30/22 1 Week Ago History ~04/23/22 Current Medications Generic Name Dose Route Start Last Admin Trade Name Freq PRN Reason Stop Dose Admin Aspirin 81 mg 04/30/22 16:00 05/01/22 08:49 Aspirin 81 Mg Tablet.Ec PO 05/30/22 15:59 81 mg DAILY SWATI Administration Hydromorphone HCl 1 mg 04/30/22 11:50 04/30/22 23:21 Hydromorphone 1 Mg/1ml Inj 1 Mg/Ml Syringe IV 05/05/22 11:49 1 mg Q4H PRN PRN Administration PAIN Sodium Chloride 1,000 mls @ 100 mls/hr 04/30/22 12:00 05/01/22 08:48 Sodium Chloride 0.9% 1000 Ml IV 05/30/22 11:59 100 mls/hr .Q10H SWATI Administration Insulin Glargine 25 unit 04/30/22 22:00 05/01/22 08:32 Insulin Glargine 1 Unit SQ 05/30/22 21:59 Not Given BID SWATI Lisinopril 5 mg 04/30/22 16:00 05/01/22 08:48 Lisinopril 5 Mg Tablet PO 05/30/22 15:59 5 mg DAILY SWATI Administration Metoclopramide HCl 10 mg 04/30/22 16:30 05/01/22 12:37 Metoclopramide Hcl 10 Mg/2 Ml Vial IV 05/30/22 16:29 10 mg ACHS SWATI Administration Metoprolol Tartrate 25 mg 04/30/22 16:00 05/01/22 08:48 Metoprolol Tartrate 25 Mg Tab PO 05/30/22 15:59 25 mg DAILY SWATI Administration Miscellaneous Information 1 each 04/30/22 15:45 Medication Intervention 1 Each Each 05/30/22 15:44 .RN TO CHECK SWATI Ondansetron HCl 4 mg 04/30/22 13:56 04/30/22 21:27 Ondansetron Hcl 4 Mg/2 Ml Vial IV 05/30/22 13:55 4 mg Q6H PRN PRN Administration NAUSEA/VOMITING Ondansetron HCl 4 mg 04/30/22 15:21 Zofran 4 Mg/Udtablet Orally Disintegrating PO 05/30/22 15:20 Q6H PRN PRN VOMITING Simvastatin 40 mg 04/30/22 16:00 05/01/22 08:48 Simvastatin 20 Mg Tablet PO 05/30/22 15:59 40 mg DAILY SWATI Administration Tamsulosin HCl 0.4 mg 04/30/22 16:00 05/01/22 08:48 Tamsulosin Hcl 0.4 Mg Cap PO 05/30/22 15:59 0.4 mg DAILY SWATI Administration Discontinued Medications Generic Name Dose Route Start Last Admin Trade Name Freq PRN Reason Stop Dose Admin Diphenhydramine HCl 50 mg 04/30/22 22:30 04/30/22 22:33 Diphenhydramine Hcl 25 Mg Capsule PO 04/30/22 22:31 50 mg ONCE ONE Administration Hydralazine HCl Confirm 04/30/22 10:12 Hydralazine Hcl 20 Mg/Ml Vial Administered 04/30/22 10:13 Dose 20 mg .ROUTE .STK-MED ONE Hydralazine HCl 10 mg 04/30/22 10:16 04/30/22 10:16 Hydralazine Hcl 20 Mg/Ml Vial IV 04/30/22 10:17 10 mg STAT ONE Administration Hydralazine HCl 10 mg 04/30/22 11:19 04/30/22 11:21 Hydralazine Hcl 20 Mg/Ml Vial IV 04/30/22 11:20 10 mg STAT ONE Administration Hydromorphone HCl 1 mg 04/30/22 10:05 04/30/22 10:24 Hydromorphone 1 Mg/1ml Inj 1 Mg/Ml Syringe IV 04/30/22 10:06 1 mg STAT ONE Administration Hydromorphone HCl Confirm 04/30/22 10:21 Hydromorphone 1 Mg/1ml Inj 1 Mg/Ml Syringe Administered 04/30/22 10:22 Dose 1 mg .ROUTE .STK-MED ONE Hydromorphone HCl 1 mg 04/30/22 11:17 04/30/22 11:24 Hydromorphone 1 Mg/1ml Inj 1 Mg/Ml Syringe IV 04/30/22 11:18 1 mg STAT ONE Administration Hydromorphone HCl Confirm 04/30/22 11:19 Hydromorphone 1 Mg/1ml Inj 1 Mg/Ml Syringe Administered 04/30/22 11:20 Dose 1 mg .ROUTE .STK-MED ONE Sodium Chloride 1,000 mls @ 999 mls/hr 04/30/22 10:05 04/30/22 11:27 Sodium Chloride 0.9% 1000 Ml IV 04/30/22 11:05 Infused .Q1H1M STA Infusion Sodium Chloride Confirm 04/30/22 10:21 Sodium Chloride 0.9% 1000 Ml Administered 04/30/22 10:22 Dose 1,000 mls @ ud .ROUTE .STK-MED ONE Metoclopramide HCl 10 mg 04/30/22 10:08 04/30/22 10:23 Metoclopramide Hcl 10 Mg/2 Ml Vial IV 04/30/22 10:09 10 mg STAT ONE Administration Metoclopramide HCl Confirm 04/30/22 10:21 Metoclopramide Hcl 10 Mg/2 Ml Vial Administered 04/30/22 10:22 Dose 10 mg .ROUTE .STK-MED ONE Intake & Output (Last 24 hours) 04/29/22 04/30/22 05/01/22 05/02/22 11:59 11:59 11:59 11:59 Intake Total 1178 Output Total 300 Balance 878 Weight 89 kg 85 kg Microbiology Results (Last 24 hours) 04/30/22 10:20 Blood Blood Culture Gram Stain - Pending 04/30/22 10:20 Blood Blood Culture - Pending 04/30/22 10:25 Blood Blood Culture Gram Stain - Pending 04/30/22 10:25 Blood Blood Culture - Pending Laboratory Results (Last 24 hours) 05/01/22 05/01/22 05/01/22 11:30 06:43 05:05 WBC RBC Hgb Hct MCV MCH MCHC RDW Plt Count MPV Gran % Immature Gran % (Auto) Nucleat RBC Rel Count Eos # (Auto) Immature Gran # (Auto) Absolute Lymphs (auto) Absolute Monos (auto) Absolute Nucleated RBC Lymphocytes % Monocytes % Eosinophils % Basophils % Absolute Granulocytes Basophils # Sodium 138 Potassium 4.1 Chloride 105 Carbon Dioxide 26 Anion Gap 10.7 BUN 17 Creatinine 0.96 Estimated GFR > 60.0 Glucose 141 H POC Glucometer 155 H 143 H Hemoglobin A1c Lactic Acid Calcium 8.6 Total Bilirubin 1.20 AST 25 ALT 23 Alkaline Phosphatase 93 Troponin I Serum Total Protein 6.8 Albumin 3.7 05/01/22 04/30/22 04/30/22 05:05 Unknown 21:19 WBC 11.9 H RBC 4.75 Hgb 14.2 Hct 42.3 MCV 89.1 MCH 29.9 MCHC 33.6 RDW 13.0 Plt Count 179 MPV 10.8 Gran % 70.2 H Immature Gran % (Auto) 0.3 Nucleat RBC Rel Count 0.0 Eos # (Auto) 0.13 Immature Gran # (Auto) 0.04 H Absolute Lymphs (auto) 2.52 Absolute Monos (auto) 0.82 Absolute Nucleated RBC 0.00 Lymphocytes % 21.2 L Monocytes % 6.9 Eosinophils % 1.1 Basophils % 0.3 Absolute Granulocytes 8.36 H Basophils # 0.04 Sodium Potassium Chloride Carbon Dioxide Anion Gap BUN Creatinine Estimated GFR Glucose POC Glucometer 144 H Hemoglobin A1c 8.56 H Lactic Acid Calcium Total Bilirubin AST ALT Alkaline Phosphatase Troponin I Serum Total Protein Albumin 04/30/22 04/30/22 04/30/22 17:35 16:36 14:47 WBC RBC Hgb Hct MCV MCH MCHC RDW Plt Count MPV Gran % Immature Gran % (Auto) Nucleat RBC Rel Count Eos # (Auto) Immature Gran # (Auto) Absolute Lymphs (auto) Absolute Monos (auto) Absolute Nucleated RBC Lymphocytes % Monocytes % Eosinophils % Basophils % Absolute Granulocytes Basophils # Sodium Potassium Chloride Carbon Dioxide Anion Gap BUN Creatinine Estimated GFR Glucose POC Glucometer 139 H Hemoglobin A1c Lactic Acid Calcium Total Bilirubin AST ALT Alkaline Phosphatase Troponin I 0.030 0.027 Serum Total Protein Albumin 04/30/22 13:23 WBC RBC Hgb Hct MCV MCH MCHC RDW Plt Count MPV Gran % Immature Gran % (Auto) Nucleat RBC Rel Count Eos # (Auto) Immature Gran # (Auto) Absolute Lymphs (auto) Absolute Monos (auto) Absolute Nucleated RBC Lymphocytes % Monocytes % Eosinophils % Basophils % Absolute Granulocytes Basophils # Sodium Potassium Chloride Carbon Dioxide Anion Gap BUN Creatinine Estimated GFR Glucose POC Glucometer Hemoglobin A1c Lactic Acid 1.6 Calcium Total Bilirubin AST ALT Alkaline Phosphatase Troponin I Serum Total Protein Albumin Orders (Last 24 hours) Category Date Time 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 04/30/22 13:25 Active Clear Liquid Diet 05/01/22 Lunch Active CBC W DIFF AM.LAB Lab 05/01/22 05:05 Completed CMP AM.LAB Lab 05/01/22 05:05 Completed Lactic Acid Stat Lab 04/30/22 13:23 Completed POCT GLUCOSE Stat Lab 04/30/22 16:36 Completed POCT GLUCOSE Stat Lab 04/30/22 21:19 Completed POCT GLUCOSE Stat Lab 05/01/22 06:43 Completed POCT GLUCOSE Stat Lab 05/01/22 11:30 Completed TROPONIN Q4H Lab 04/30/22 14:47 Completed TROPONIN Q4H Lab 04/30/22 17:35 Completed Aspirin EC 81 mg [Ecotrin 81 mg] Med 04/30/22 16:00 Active 81 mg PO DAILY Diphenhydramine HCl 25 mg [Benadryl 25 mg Capsule Med 04/30/22 22:30 Discontinued ] 50 mg PO ONCE ONE Insulin Glargine [Lantus Insulin] Med 04/30/22 22:00 Active 25 unit SQ BID Lisinopril 5 mg [Zestril 5 MG] Med 04/30/22 16:00 Active 5 mg PO DAILY Medication Intervention Med 04/30/22 15:45 Active 1 each MC .RN TO CHECK Metoclopramide HCl 10 mg/2 ml* [Reglan 10 MG/2 ML] Med 04/30/22 16:30 Active 10 mg IV ACHS Metoprolol Tartrate 25 mg [Lopressor 25MG Tab] Med 04/30/22 16:00 Active 25 mg PO DAILY NaCl 0.9% 1000 ml [Sodium Chloride 0.9% 1000 ML] 1,000 Med 04/30/22 12:00 Active ml IV 100 mls/hr Ondansetron HCl 4 mg/2 ml [Zofran 4 MG/2 ML VIAL] Med 04/30/22 13:56 Active 4 mg IV Q6H PRN PRN Ondansetron ODT 4 MG [Zofran Odt 4 mg] Med 04/30/22 15:21 Active 4 mg PO Q6H PRN PRN Simvastatin 20Mg [Zocor 20Mg] Med 04/30/22 16:00 Active 40 mg PO DAILY Tamsulosin HCl 0.4 mg [Flomax 0.4 MG] Med 04/30/22 16:00 Active 0.4 mg PO DAILY Code(s): R10.9 - UNSPECIFIED ABDOMINAL PAIN (2) Nausea and vomiting Current Visit: Yes Status: Acute Qualifiers: Vomiting type: unspecified Qualified Code(s): R11.2 - Nausea with vomiting, unspecified Code(s): R11.2 - NAUSEA WITH VOMITING, UNSPECIFIED (3) Type 2 diabetes mellitus Current Visit: Yes Status: Chronic
[2022-05-01] MEDS: Hydromorphone 1 mg/ml Injection IV PRN (22:19)
[2022-05-02 07:25] VITALS: BP 157/69; PULSE 80; O2SAT 98
[2022-05-02] MEDS: ECOTRIN 81 MG PO SCH (08:57)
[2022-05-02] MEDS: Reglan 10 MG/2 ML IV SCH (08:57)
[2022-05-02] MEDS: Flomax 0.4 MG PO SCH (08:58)
[2022-05-02] MEDS: Lopressor 25MG Tab PO SCH (08:58)
[2022-05-02] MEDS: Zestril 5 MG PO SCH (08:58)
[2022-05-02] MEDS: ZOCOR 20MG PO SCH (08:58)
[2022-05-02] MEDS: Lantus Insulin SQ SCH (09:08)
--- NOTE | 2022-05-02 13:16 | PCM.DS ---
Discharge Summary Date of Admission: 04/30/22 12:42 Admitting Physician: GRZEGORZ JOHNSON Primary Care Provider: GRZEGORZ JOHNSON Allergies Allergies Iodinated Contrast Media Allergy (Verified 04/30/22 10:00) Hospital Summary - Hospital Course Hospital Course: Chief Complaint Diagnosis abdominal pain nausea and vomiting for 5 days Allergies Allergy/AdvReac Type Severity Reaction Status Date / Time Iodinated Contrast Media Allergy Verified 04/30/22 10:00 Vital Signs (Last 24 hours) Temp Pulse Resp BP Pulse Ox 05/02/22 07:24 98.0 F 80 16 157/69 98 05/02/22 04:00 98.7 F 76 16 157/76 96 05/01/22 23:29 99.0 F 77 18 132/76 98 05/01/22 20:00 98.4 F 82 20 137/71 97 05/01/22 16:00 98.2 F 76 17 164/80 98 Home Medications Medication Instructions Recorded Confirmed Last Taken Type Aspirin EC 81 mg [Ecotrin 81 1 tab PO DAILY 04/30/22 04/30/22 04/29/22 History mg] Metoprolol Tartrate 25 mg 1 tab PO DAILY 04/30/22 04/30/22 04/29/22 History [Lopressor 25MG Tab] Semaglutide [Ozempic] 0.25 mg SQ WEEKLY 04/30/22 04/30/22 1 Week Ago History ~04/23/22 Current Medications Discontinued Medications Generic Name Dose Route Start Last Admin Trade Name Freq PRN Reason Stop Dose Admin Aspirin 81 mg 04/30/22 16:00 05/02/22 08:57 Aspirin 81 Mg Tablet.Ec PO 05/30/22 15:59 81 mg DAILY SWATI Administration Diphenhydramine HCl 50 mg 04/30/22 22:30 04/30/22 22:33 Diphenhydramine Hcl 25 Mg Capsule PO 04/30/22 22:31 50 mg ONCE ONE Administration Hydralazine HCl Confirm 04/30/22 10:12 Hydralazine Hcl 20 Mg/Ml Vial Administered 04/30/22 10:13 Dose 20 mg .ROUTE .STK-MED ONE Hydralazine HCl 10 mg 04/30/22 10:16 04/30/22 10:16 Hydralazine Hcl 20 Mg/Ml Vial IV 04/30/22 10:17 10 mg STAT ONE Administration Hydralazine HCl 10 mg 04/30/22 11:19 04/30/22 11:21 Hydralazine Hcl 20 Mg/Ml Vial IV 04/30/22 11:20 10 mg STAT ONE Administration Hydromorphone HCl 1 mg 04/30/22 10:05 04/30/22 10:24 Hydromorphone 1 Mg/1ml Inj 1 Mg/Ml Syringe IV 04/30/22 10:06 1 mg STAT ONE Administration Hydromorphone HCl Confirm 04/30/22 10:21 Hydromorphone 1 Mg/1ml Inj 1 Mg/Ml Syringe Administered 04/30/22 10:22 Dose 1 mg .ROUTE .STK-MED ONE Hydromorphone HCl 1 mg 04/30/22 11:17 04/30/22 11:24 Hydromorphone 1 Mg/1ml Inj 1 Mg/Ml Syringe IV 04/30/22 11:18 1 mg STAT ONE Administration Hydromorphone HCl Confirm 04/30/22 11:19 Hydromorphone 1 Mg/1ml Inj 1 Mg/Ml Syringe Administered 04/30/22 11:20 Dose 1 mg .ROUTE .STK-MED ONE Hydromorphone HCl 1 mg 04/30/22 11:50 05/01/22 22:19 Hydromorphone 1 Mg/1ml Inj 1 Mg/Ml Syringe IV 05/05/22 11:49 1 mg Q4H PRN PRN Administration PAIN Sodium Chloride 1,000 mls @ 999 mls/hr 04/30/22 10:05 04/30/22 11:27 Sodium Chloride 0.9% 1000 Ml IV 04/30/22 11:05 Infused .Q1H1M STA Infusion Sodium Chloride Confirm 04/30/22 10:21 Sodium Chloride 0.9% 1000 Ml Administered 04/30/22 10:22 Dose 1,000 mls @ ud .ROUTE .STK-MED ONE Sodium Chloride 1,000 mls @ 100 mls/hr 04/30/22 12:00 05/01/22 22:19 Sodium Chloride 0.9% 1000 Ml IV 05/30/22 11:59 100 mls/hr .Q10H SWATI Administration Insulin Glargine 25 unit 04/30/22 22:00 05/02/22 09:08 Insulin Glargine 1 Unit SQ 05/30/22 21:59 Not Given BID SWATI Lisinopril 5 mg 04/30/22 16:00 05/02/22 08:58 Lisinopril 5 Mg Tablet PO 05/30/22 15:59 5 mg DAILY SWATI Administration Metoclopramide HCl 10 mg 04/30/22 10:08 04/30/22 10:23 Metoclopramide Hcl 10 Mg/2 Ml Vial IV 04/30/22 10:09 10 mg STAT ONE Administration Metoclopramide HCl Confirm 04/30/22 10:21 Metoclopramide Hcl 10 Mg/2 Ml Vial Administered 04/30/22 10:22 Dose 10 mg .ROUTE .STK-MED ONE Metoclopramide HCl 10 mg 04/30/22 16:30 05/02/22 08:57 Metoclopramide Hcl 10 Mg/2 Ml Vial IV 05/30/22 16:29 10 mg ACHS SWATI Administration Metoprolol Tartrate 25 mg 04/30/22 16:00 05/02/22 08:58 Metoprolol Tartrate 25 Mg Tab PO 05/30/22 15:59 25 mg DAILY SWATI Administration Miscellaneous Information 1 each 04/30/22 15:45 Medication Intervention 1 Each Each 05/30/22 15:44 .RN TO CHECK SWATI Ondansetron HCl 4 mg 04/30/22 13:56 04/30/22 21:27 Ondansetron Hcl 4 Mg/2 Ml Vial IV 05/30/22 13:55 4 mg Q6H PRN PRN Administration NAUSEA/VOMITING Ondansetron HCl 4 mg 04/30/22 15:21 Zofran 4 Mg/Udtablet Orally Disintegrating PO 05/30/22 15:20 Q6H PRN PRN VOMITING Simvastatin 40 mg 04/30/22 16:00 05/02/22 08:58 Simvastatin 20 Mg Tablet PO 05/30/22 15:59 40 mg DAILY SWATI Administration Tamsulosin HCl 0.4 mg 04/30/22 16:00 05/02/22 08:58 Tamsulosin Hcl 0.4 Mg Cap PO 05/30/22 15:59 0.4 mg DAILY SWATI Administration Intake & Output (Last 24 hours) 04/30/22 05/01/22 05/02/22 05/03/22 11:59 11:59 11:59 11:59 Intake Total 1178 3288 Output Total 300 Balance 878 3288 Weight 89 kg 85 kg 84.5 kg Microbiology Results (Last 24 hours) 04/30/22 10:25 Blood Blood Culture Gram Stain - Pending 04/30/22 10:25 Blood Blood Culture - Preliminary NO GROWTH TO DATE 04/30/22 10:20 Blood Blood Culture Gram Stain - Pending 04/30/22 10:20 Blood Blood Culture - Preliminary NO GROWTH TO DATE Laboratory Results (Last 24 hours) 05/02/22 05/02/22 05/01/22 09:06 06:54 21:05 POC Glucometer 159 H 122 H 133 H 05/01/22 15:58 POC Glucometer 151 H Orders (Last 24 hours) Category Date Time Status [place] Diet Diet 05/01/22 Dinner Completed Discharge Routine Discharge 05/02/22 Ordered POCT GLUCOSE Stat Lab 05/01/22 15:58 Completed POCT GLUCOSE Stat Lab 05/01/22 21:05 Completed POCT GLUCOSE Stat Lab 05/02/22 06:54 Completed POCT GLUCOSE Stat Lab 05/02/22 09:06 Completed Patient Care Notes (Last 24 hours) 05/02/22 09:26 Case Management Note by Shannan Muñoz S/W PATIENT- HE CONTINUES TO DENY ANY NEW NEEDS AT TIME OF DC. HE PLANS TO RETURN HOME TO HIS PLF AT TIME OF DC Initialized on 05/02/22 09:26 - END OF NOTE 05/02/22 09:12 Nursing Note by Dio Walters DR CALLED TO CHECK ON PT. PT STATES FEELING BETTER, NO PAIN NO NAUSEA. PT OK TO DC HOME Initialized on 05/02/22 09:12 - END OF NOTE - Vitals & Intake/Output Vital Signs: Vital Signs Temperature 98.0 F 05/02/22 07:24 Pulse Rate 80 05/02/22 07:24 Respiratory Rate 16 05/02/22 07:24 Blood Pressure 157/69 05/02/22 07:24 O2 Sat by Pulse Oximetry 98 05/02/22 07:24 Intake & Output: Intake & Output 04/30/22 05/01/22 05/02/22 05/03/22 11:59 11:59 11:59 11:59 Intake Total 1178 3288 Output Total 300 Balance 878 3288 Weight 89 kg 85 kg 84.5 kg - Lab Result Diagrams: 05/01/22 05:05 05/01/22 05:05 Lab Results-Last 24 Hrs: Lab Results-Last 24 Hours 05/01/22 05/01/22 05/02/22 Range/Units 15:58 21:05 06:54 POC Glucometer 151 H 133 H 122 H (74 to 106) mg/dL 05/02/22 Range/Units 09:06 POC Glucometer 159 H (74 to 106) mg/dL Micro Results-Entire Visit: Microbiology 04/30/22 10:25 Blood Culture - Preliminary Blood NO GROWTH TO DATE 04/30/22 10:20 Blood Culture - Preliminary Blood NO GROWTH TO DATE Accuchecks Date 05/02/22 Date 05/01/22 Time 16:23 Discharge Exam General Appearance: no apparent distress, alert Neurologic Exam: alert, oriented x 3, cooperative, normal mood/affect, nml cerebellar function, sensation nml, No motor deficits Eye Exam: PERRL, EOMI, eyes nml inspection Ears, Nose, Throat Exam: normal ENT inspection, pharynx normal, moist mucous membranes Neck Exam: normal inspection, non-tender, supple, full range of motion Respiratory Exam: normal breath sounds, lungs clear, No respiratory distress Cardiovascular Exam: regular rate/rhythm, normal heart sounds Gastrointestinal/Abdomen Exam: soft, No tenderness, No mass Male Genitalia Exam: deferred Rectal Exam: deferred Back Exam: normal inspection, normal range of motion, No CVA tenderness, No vertebral tenderness Extremity Exam: normal inspection, normal range of motion Skin Exam: normal color, warm, dry Final Diagnosis/Problem List - Final Discharge Diagnosis/Problem (1) Abdominal pain Status: Resolved Code(s): R10.9 - UNSPECIFIED ABDOMINAL PAIN (2) Nausea and vomiting Status: Resolved Code(s): R11.2 - NAUSEA WITH VOMITING, UNSPECIFIED (3) Type 2 diabetes mellitus Status: Chronic - Discharge Discharge Date: 05/02/22 Disposition: Home, Self-Care Condition: Stable Prescriptions: Continue lisinopriL [Lisinopril] 5 mg PO DAILY Pravastatin Sodium 40 mg PO DAILY Insulin Glargine [Lantus Insulin] 25 units SQ BID Tamsulosin HCl 0.4 mg [Flomax 0.4 MG] 0.4 mg PO DAILY #30 cap Ondansetron ODT 4 MG [Zofran Odt 4 mg] 4 mg PO Q6H PRN PRN #10 tablet PRN Reason: Vomiting Aspirin EC 81 mg [Ecotrin 81 mg] 1 tab PO DAILY Metoprolol Tartrate 25 mg [Lopressor 25MG Tab] 1 tab PO DAILY Semaglutide [Ozempic] 0.25 mg SQ WEEKLY Instructions: Nausea and Vomiting, Adult (DC) Follow up with: GRZEGORZ JOHNSON MD [Primary Care Provider] - 05/10/22 10:00 am ([facility])
== END 2022-05-02 09:42 | disposition home or self-care (01) ==
LOC: ED 09:57 → MED SURG 12:42
PROVIDERS: ADMIT General Practice; ATTEND General Practice
DX: R10.84 Generalized abdominal pain (principal); R11.2 Nausea with vomiting, unspecified; E11.9 Type 2 diabetes mellitus without complications; I10 Essential (primary) hypertension; E78.5 Hyperlipidemia, unspecified; Z79.899 Other long term (current) drug therapy; Z20.828 Contact with and (suspected) exposure to other viral communicable diseases; Z95.1 Presence of aortocoronary bypass graft
CPT/HCPCS: 0241U; 36415; 71045; 74176; 76705; 80053; 80307; 81001; 82150; 82947; 83036; 83605; 83690; 84484; 85025; 85610; 87040; 93005; 96360; 96374; 96375; 96376; 99285; G0378; J0360; J1170; J2405; A9270-GY

== ENCOUNTER 2022-05-16 12:29 | Emergency (ER) | payer MEDICARE, OTHER ==
--- NOTE | 2022-05-16 12:36 | ERPHSYRPT ---
- History of Present Illness Time Seen by Provider: 05/16/22 12:36 Historian: patient, EMS, old records Exam Limitations: no limitations Physician History: This is a 66-year-old white male patient of Dr. Johnson. He is a diabetic and has history of hypertension. He also has a history of hyperlipidemia. This patient has been seen and evaluated multiple times in our emergency department for the same issue. This is his third episode and evaluation in our emergency d epartment since 04/25/2022. He has had 2 negative CAT scans of the abdomen pelvis. 1 on 04/30/2022 and the second 1 on 04/25/2022. He has spontaneous nausea and vomiting intermittently. He has never seen a GI specialist. He currently denies chest pain. He has no fevers. Timing/Duration: worse, other (Intermittent episodes over 2 to 3 months) Quality: aching (Diffuse) Abdominal Pain Onset Location: generalized abdomen Severity of Pain-Max: mild Severity of Pain-Current: mild Modifying Factors: Improves With: vomiting Associated Symptoms: loss of appetite, nausea, vomiting, No chest pain Previous symptoms: same symptoms as today, recent hospitalization, recently treated, no recent treatment Allergies/Adverse Reactions: Iodinated Contrast Media Allergy (Verified 05/16/22 12:42) Home Medications: Insulin Glargine [Lantus Insulin] 25 units SQ BID 01/15/20 [History] Pravastatin Sodium 40 mg PO DAILY 01/15/20 [History] lisinopriL [Lisinopril] 5 mg PO DAILY 01/15/20 [History] Aspirin EC 81 mg [Ecotrin 81 mg] 1 tab PO DAILY 04/30/22 [History] Metoprolol Tartrate 25 mg [Lopressor 25MG Tab] 1 tab PO DAILY 04/30/22 [Hi story] Semaglutide [Ozempic] 0.25 mg SQ WEEKLY 04/30/22 [History] Hx Tetanus, Diphtheria Vaccination/Date Given: No Hx Influenza Vaccination/Date Given: No Hx Pneumococcal Vaccination/Date Given: No Travel Risk - International Travel Have you traveled outside of the country in past 3 weeks: No - Coronavirus Screening Are you exhibiting any of the following symptoms?: No Close contact with a COVID-19 positive Pt in past 14-21 Days: No - Vaccine Status Have you recieved a Covid-19 vaccination: Yes 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 - Vaccination Dates Date of 2cond Vaccination (if applicable): 04/2020 Comment: booster 1 month ago - Review of Systems Constitutional: Weakness Eyes: No Symptoms Ears, Nose, & Throat: No Symptoms Respiratory: No Symptoms Cardiac: No Symptoms Abdominal/Gastrointestinal: Abdominal Pain, Nausea (Mild diffuse), Vomiting, Appetite Changes Genitourinary Symptoms: No Symptoms Musculoskeletal: No Symptoms Skin: No Symptoms Neurological: No Symptoms Psychological: No Symptoms Endocrine: No Symptoms Hematologic/Lymphatic: No Symptoms Immunological/Allergic: No Symptoms All Other Systems: Reviewed and Negative - Past Medical History Pertinent Past Medical History: Yes Neurological History: No Pertinent History ENT History: Cataracts, Other Cardiac History: High Cholesterol, Hypertension, Myocardial Infarction (SC) Respiratory History: Bronchitis Endocrine Medical History: Diabetes Type II Musculoskeletal History: Arthritis, Fractures GI Medical History: GERD History: No Pertinent History Psycho-Social History: No Pertinent History Male Reproductive Disorders: Prostate Problems Other Medical History: had cataract surgery and new lenses put in both eyes in 03/2022 - Past Surgical History Past Surgical History: Yes Neuro Surgical History: No Pertinent History Cardiac: CABG, Cardiac Catheterization Respiratory: No Pertinent History Gastrointestinal: No Pertinent History Genitourinary: No Pertinent History Musculoskeletal: Orthopedic Surgery Male Surgical History: No Pertinent History Other Surgical History: R shoulder 2020 rotator cuff/bicep torn in two - Social History Smoking Status: Former smoker Exposure to second hand smoke: Yes Drug Use: marijuana Patient Lives Alone: No Significant Family History: no pertinent family hx - Nursing Vital Signs Nursing Vital Signs: Initial Vital Signs Temperature 97.0 F 05/16/22 12:35 Pulse Rate 80 05/16/22 12:35 Respiratory Rate 18 05/16/22 12:35 Blood Pressure 214/99 05/16/22 12:35 O2 Sat by Pulse Oximetry 99 05/16/22 12:35 Pain Scale Pain Intensity 4 - Physical Exam General Appearance: no apparent distress, alert, anxiety Eye Exam: PERRL/EOMI, eyes nml inspection Ears, Nose, Throat Exam: normal ENT inspection, moist mucous membranes Neck Exam: normal inspection, non-tender, supple, full range of motion Respiratory Exam: normal breath sounds, lungs clear, airway intact, No chest tenderness, No respiratory distress Cardiovascular Exam: regular rate/rhythm, normal heart sounds, normal peripheral pulses Gastrointestinal/Abdomen Exam: soft, normal bowel sounds, No tenderness Rectal Exam: not done Back Exam: normal inspection, normal range of motion, No CVA tenderness, No vertebral tenderness Extremity Exam: normal inspection, normal range of motion, pelvis stable Neurologic Exam: alert, oriented x 3, cooperative, fiscal agent II-XII nml as tested, normal mood/affect, nml cerebellar function, nml station & gait, sensation nml Skin Exam: normal color, warm, dry Lymphatic Exam: No adenopathy SpO2 Interpretation: normal SpO2: 99 O2 Delivery: Room Air - Course Nursing assessment & vital signs reviewed: Yes EKG Interpreted by Me: RATE (85), Sinus Rhythm, NORMAL AXIS, NORMAL QRS, Other (Prolonged MT interval. No acute ischemic changes on today's twelve-lead EKG. Today's twelve-lead EKG is no different than the twelve-lead EKG on 04/30/2022) Ordered Tests: Active Orders 24 hr Category Date Time Status EKG-ER Only STAT Care 05/16/22 13:43 Active IV Insertion STAT Care 05/16/22 13:12 Active AMYLASE Stat Lab 05/16/22 13:25 Completed CBC W DIFF Stat Lab 05/16/22 13:12 Completed CMP Stat Lab 05/16/22 13:25 Completed LIPASE Stat Lab 05/16/22 13:25 Completed Lactic Acid Stat Lab 05/16/22 13:20 Completed Lactic Acid Stat Lab 05/16/22 15:30 Completed TROPONIN Q4H Lab 05/16/22 13:45 Completed TROPONIN Q4H Lab 05/16/22 15:49 Received TROPONIN Q4H Lab 05/16/22 21:45 Ordered UA W/RFX UR CULTURE Stat Lab 05/16/22 14:06 Completed Medication Summary Discontinued Medications Generic Name Dose Route Start Last Admin Trade Name Freq PRN Reason Stop Dose Admin Hydralazine HCl 10 mg 05/16/22 13:43 05/16/22 13:58 Hydralazine Hcl 20 Mg/Ml Vial IV 05/16/22 13:44 10 mg STAT ONE Administration Hydralazine HCl Confirm 05/16/22 13:55 Hydralazine Hcl 20 Mg/Ml Vial Administered 05/16/22 13:56 Dose 20 mg .ROUTE .STK-MED ONE Hydralazine HCl Confirm 05/16/22 14:00 Hydralazine Hcl 20 Mg/Ml Vial Administered 05/16/22 14:01 Dose 20 mg .ROUTE .STK-MED ONE Sodium Chloride 1,000 mls @ 999 mls/hr 05/16/22 13:12 05/16/22 15:19 Sodium Chloride 0.9% 1000 Ml IV 05/16/22 14:12 Infused .Q1H1M STA Infusion Sodium Chloride Confirm 05/16/22 13:22 Sodium Chloride 0.9% 1000 Ml Administered 05/16/22 13:23 Dose 1,000 mls @ ud .ROUTE .STK-MED ONE Sodium Chloride 1,000 mls @ 999 mls/hr 05/16/22 14:22 05/16/22 14:35 Sodium Chloride 0.9% 1000 Ml IV 05/16/22 15:22 999 mls/hr .Q1H1M STA Administration Sodium Chloride Confirm 05/16/22 14:33 Sodium Chloride 0.9% 1000 Ml Administered 05/16/22 14:34 Dose 1,000 mls @ ud .ROUTE .STK-MED ONE Pantoprazole Sodium 40 mg 05/16/22 13:12 05/16/22 13:25 Pantoprazole 40 Mg Vial IV 05/16/22 13:13 40 mg STAT ONE Administration Pantoprazole Sodium Confirm 05/16/22 13:22 Pantoprazole 40 Mg Vial Administered 05/16/22 13:23 Dose 40 mg IV .STK-MED ONE Prochlorperazine Edisylate 5 mg 05/16/22 13:12 05/16/22 13:25 Prochlorperazine Edisylate 10 Mg/2 Ml Vial IV 05/16/22 13:13 5 mg STAT ONE Administration Prochlorperazine Edisylate Confirm 05/16/22 13:22 Prochlorperazine Edisylate 10 Mg/2 Ml Vial Administered 05/16/22 13:23 Dose 10 mg .ROUTE .STK-MED ONE Lab/Rad Data: Laboratory Result Diagrams 05/16/22 13:12 05/16/22 13:25 Laboratory Results 05/16/22 05/16/22 05/16/22 Range/Units 15:30 14:06 13:45 WBC (4.0-10.5) x10^3/uL RBC (4.1-5.6) x10^6/uL Hgb (12.5-18.0) g/dL Hct (42-50) % MCV (78-100) fL MCH (26-32) pg MCHC (32-36) g/dL RDW (11.5-14.0) % Plt Count (150-450) x10^3/uL MPV (7.5-11.0) fL Gran % (36.0-66.0) % Immature Gran % (Auto) (0.00-0.4) % Nucleat RBC Rel Count (0.00-0.1) % Eos # (Auto) (0-0.5) x10^3/uL Immature Gran # (Auto) (0.00-0.03) x10^3u/L Absolute Lymphs (auto) (1.0-4.6) x10^3/uL Absolute Monos (auto) (0.0-1.3) x10^3/uL Absolute Nucleated RBC (0.00-0.01) x10^3u/L Lymphocytes % (24.0-44.0) % Monocytes % (0.0-12.0) % Eosinophils % (0.00-5.0) % Basophils % (0.0-0.4) % Absolute Granulocytes (1.4-6.9) x10^3/uL Basophils # (0-0.4) x10^3/uL Sodium (137-145) mmol/L Potassium (3.5-5.1) mmol/L Chloride (98-107) mmol/L Carbon Dioxide (22-30) mmol/L Anion Gap (5-15) MEQ/L BUN (9-20) mg/dL Creatinine (0.66-1.25) mg/dL Estimated GFR ML/MIN Glucose (74-106) mg/dL Lactic Acid 2.8 H (0.4-2.0) Calcium (8.4-10.2) mg/dL Total Bilirubin (0.2-1.3) mg/dL AST (17-59) U/L ALT (0-50) U/L Alkaline Phosphatase (38-126) U/L Troponin I < 0.012 (0.000-0.034) ng/mL Serum Total Protein (6.3-8.2) g/dL Albumin (3.5-5.0) g/dL Amylase (30-110) U/L Lipase (23-300) U/L Urine Color Yellow (Yellow) Urine Appearance Clear (Clear) Urine pH 7.5 (4.6-8.0) Ur Specific Mcdade 1.020 (1.005-1.030) Urine Protein 30 (Negative) Urine Glucose (UA) 500 A (Negative) mg/dL Urine Ketones 40 A (Negative) Urine Blood Negative (Negative) Urine Nitrite Negative (Negative) Urine Bilirubin Negative (Negative) Urine Urobilinogen 0.2 (0.2) mg/dL Ur Leukocyte Esterase Negative (Negative) U Hyaline Cast (Auto) NONE SEEN (0-2) /LPF Urine Microscopic RBC 0-2 (0-5) /HPF Urine Microscopic WBC 0-2 (0-5) /HPF Ur Epithelial Cells None Seen (None Seen) /HPF Urine Bacteria None Seen (None Seen) /HPF Urine Culture Reflexed NO (NO) 05/16/22 05/16/22 05/16/22 Range/Units 13:25 13:20 13:12 WBC 10.0 (4.0-10.5) x10^3/uL RBC 5.04 (4.1-5.6) x10^6/uL Hgb 14.7 (12.5-18.0) g/dL Hct 44.4 (42-50) % MCV 88.1 (78-100) fL MCH 29.2 (26-32) pg MCHC 33.1 (32-36) g/dL RDW 12.5 (11.5-14.0) % Plt Count 177 (150-450) x10^3/uL MPV 10.4 (7.5-11.0) fL Gran % 90.1 H (36.0-66.0) % Immature Gran % (Auto) 0.4 (0.00-0.4) % Nucleat RBC Rel Count 0.0 (0.00-0.1) % Eos # (Auto) 0.01 (0-0.5) x10^3/uL Immature Gran # (Auto) 0.04 H (0.00-0.03) x10^3u/L Absolute Lymphs (auto) 0.59 L (1.0-4.6) x10^3/uL Absolute Monos (auto) 0.33 (0.0-1.3) x10^3/uL Absolute Nucleated RBC 0.00 (0.00-0.01) x10^3u/L Lymphocytes % 5.9 L (24.0-44.0) % Monocytes % 3.3 (0.0-12.0) % Eosinophils % 0.1 (0.00-5.0) % Basophils % 0.2 (0.0-0.4) % Absolute Granulocytes 9.05 H (1.4-6.9) x10^3/uL Basophils # 0.02 (0-0.4) x10^3/uL Sodium 143 (137-145) mmol/L Potassium 4.8 (3.5-5.1) mmol/L Chloride 101 (98-107) mmol/L Carbon Dioxide 27 (22-30) mmol/L Anion Gap 19.3 H (5-15) MEQ/L BUN 21 H (9-20) mg/dL Creatinine 1.09 (0.66-1.25) mg/dL Estimated GFR > 60.0 ML/MIN Glucose 250 H (74-106) mg/dL Lactic Acid 3.6 H (0.4-2.0) Calcium 9.6 (8.4-10.2) mg/dL Total Bilirubin 1.10 (0.2-1.3) mg/dL AST 37 (17-59) U/L ALT 30 (0-50) U/L Alkaline Phosphatase 146 H (38-126) U/L Troponin I (0.000-0.034) ng/mL Serum Total Protein 8.2 (6.3-8.2) g/dL Albumin 4.6 (3.5-5.0) g/dL Amylase 60 (30-110) U/L Lipase 52 (23-300) U/L Urine Color (Yellow) Urine Appearance (Clear) Urine pH (4.6-8.0) Ur Specific Mcdade (1.005-1.030) Urine Protein (Negative) Urine Glucose (UA) (Negative) mg/dL Urine Ketones (Negative) Urine Blood (Negative) Urine Nitrite (Negative) Urine Bilirubin (Negative) Urine Urobilinogen (0.2) mg/dL Ur Leukocyte Esterase (Negative) U Hyaline Cast (Auto) (0-2) /LPF Urine Microscopic RBC (0-5) /HPF Urine Microscopic WBC (0-5) /HPF Ur Epithelial Cells (None Seen) /HPF Urine Bacteria (None Seen) /HPF Urine Culture Reflexed (NO) - Progress Progress: improved, re-examined Progress Note: 05/16/22 16:01 This patient has had 2 prior negative CAT scans of the abdomen pelvis within the last 2 to 3 weeks for the same symptom complaint. I did not repeat the CAT scan of the abdomen pelvis. Patient is taking Ozempic. I did speak with Dr. Johnson and he told me to make sure the patient does not take Ozempic. He also stated to tell the patient to follow-up with his office by phone tomorrow to make arranges for follow-up appointment. This patient's medical issue is 1 of moderate complexity. His primary care provider and I spoke. Patient can be discharged after the third liter of intravenous normal saline is infused. The level of complexity of this patient and the work-up was determined by review of the patient's past medical history including discussion with the paramedics and review of the recent inpatient medical record to obtain additional history, review of the patient's medication list, review of the patient's drug allergy list, history of present illness and physical findings on examination. The work-up included placement of intravenous line, infusion of normal saline solution, infusion of Compazine, obtaining a twelve-lead EKG, obtaining troponin level, amylase, lipase, CBC, CMP, lactic acid levels, viral swabs and urinalysis. I reviewed the results of the studies. Patient's symptoms and labs have improved. We will discharge the patient to home with instructions to start with a clear liquid diet then advance to a diabetic diet as tolerated. He is to discontinue Ozempic. We will also send a prescription of Phenergan to his pharmacy. He is to follow-up with his primary care provider for further evaluation management. 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 - External Record(s) Reviewed Records reviewed as a part of evaluation & management: Inpatient - Discussion of managment Care discussed with:: PCP Reviewed:: Test results Agreed on:: Treatment plan, need for follow-up - Social Determinants of Health Limited access to: transportation - Diagnostic Testing Diagnostic test were ordered, analyzed, and reviewed by me: Yes - Risk of complications The pt has a mod risk of morbidity or mortality based on: Need for prescription drug management - Departure Departure Disposition: Home Clinical Impression: Vomiting, Dehydration Condition: Stable Critical Care Time: No Referrals: GRZEGORZ JOHNSON MD [Primary Care Provider] - Follow up/PCP as directed Additional Instructions: Drink plenty of clear liquids before advancing diet to a diabetic diet. Stop your Ozempic. Take all your other medications as prescribed. Monitor your blood sugar closely. Call your primary care provider tomorrow, 05/17/2022, to make arranges for follow-up appointment the next 3 to 5 days. Prescriptions: Promethazine HCl 25 mg [Phenergan 25 mg] 25 mg PO Q8H PRN PRN #10 tablet PRN Reason: Nausea/Vomiting
[2022-05-16] MEDS ORDERED: PROTONIX 40 MG IV IV ONE ×2 (13:12→13:22)
[2022-05-16] MEDS ORDERED: Compazine 10 MG/2 ML IV ONE (13:12)
[2022-05-16] MEDS ORDERED: Sodium Chloride 0.9% 1000 ML 1,000 ML IV STA ×3 (13:12→16:00)
[2022-05-16] MEDS ORDERED: Sodium Chloride 0.9% 1000 ML 1,000 ML ONE ×3 (13:22→16:09)
[2022-05-16] MEDS ORDERED: Compazine 10 MG/2 ML ONE (13:22)
[2022-05-16 13:27] LABS: Absolute Neutrophil Ct (ANC) 9.05 x10^3/uL (1.4-6.9); BASOPHIL % 0.2 % (0.0-0.4); Basophil (Absolute #) 0.02 x10^3/uL (0-0.4); Eosinophil % 0.1 % (0.00-5.0); Eosinophil (Absolute #) 0.01 x10^3/uL (0-0.5); Hematocrit 44.4 % (42-50); Hemoglobin 14.7 g/dL (12.5-18.0); IMMATURE GRAN # 0.04 x10^3u/L (0.00-0.03); IMMATURE GRAN % 0.4 % (0.00-0.4); Lymphocyte (Absolute #) 0.59 x10^3/uL (1.0-4.6); Lymphocytes % 5.9 % (24.0-44.0); Mean Cell Volume 88.1 fL (78-100); Mean Corpuscular Hemoglobin 29.2 pg (26-32); Mean Corpuscular Hgb Concent. 33.1 g/dL (32-36); Mean Platelet Volume 10.4 fL (7.5-11.0); Monocyte (Absolute #) 0.33 x10^3/uL (0.0-1.3); Monocytes % 3.3 % (0.0-12.0); Neutrophil % 90.1 % (36.0-66.0); Platelet Count 177 x10^3/uL (150-450); Red Blood Count 5.04 x10^6/uL (4.1-5.6); Red Cell Distribution Width 12.5 % (11.5-14.0)
[2022-05-16] MEDS ORDERED: APRESOLINE 20 MG/ML INJ IV ONE (13:43)
[2022-05-16 13:45] LABS: ALBUMIN 4.6 g/dL (3.5-5.0); ALKALINE PHOSPHATASE 146 U/L (38-126); AMYLASE 60 U/L (30-110); ANION GAP 19.3 MEQ/L (5-15); BLOOD UREA NITROGEN 21 mg/dL (9-20); CHLORIDE 101 mmol/L (98-107); Calcium 9.6 mg/dL (8.4-10.2); Carbon Dioxide 27 mmol/L (22-30); Creatinine 1 1.09 mg/dL (0.66-1.25); EST GLOMERULAR FILTRATION RATE > 60.0 ML/MIN; Glucose 250 mg/dL (74-106); LIPASE 52 U/L (23-300); Potassium 4.8 mmol/L (3.5-5.1); SGOT/AST 37 U/L (17-59); SGPT/ALT 30 U/L (0-50); SODIUM 143 mmol/L (137-145); Total Protein 8.2 g/dL (6.3-8.2)
[2022-05-16] MEDS ORDERED: APRESOLINE 20 MG/ML INJ ONE ×2 (13:55→14:00)
[2022-05-16 14:39] LABS: Appearance Clear (Clear); Bacteria None Seen /HPF (None Seen); Bilirubin Negative (Negative); Blood Negative (Negative); Epithelial Cells None Seen /HPF (None Seen); Glucose, Urine 500 mg/dL (Negative); Hyaline Casts NONE SEEN /LPF (0-2); Ketones 40 (Negative); Leukocyte Esterase Negative (Negative); Nitrite Negative (Negative); Ph 7.5 (4.6-8.0); Protein,Urine Dip 30 (Negative); RBC 0-2 /HPF (0-5); Urobilinogen 0.2 mg/dL (0.2); WBC 0-2 /HPF (0-5)
[2022-05-16 14:47] LABS: ADD URINE CULTURE? NO (NO)
[2022-05-16 15:03] VITALS: O2SAT 99
[2022-05-16 15:20] LABS: INFLUENZA A NEGATIVE (NEGATIVE); INFLUENZA B NEGATIVE (NEGATIVE); RESPIRATORY SYNCTIAL VIRUS NEGATIVE (NEGATIVE)
[2022-05-16 15:25] VITALS: BP 140/63; PULSE 94
[2022-05-16 16:10] LABS: SARS-CoV-2 Xpert Express POSITIVE (NEGATIVE)
[2022-05-16] MEDS ORDERED: Hydromorphone 1 mg/ml Injection IV ONE (16:17)
[2022-05-16] MEDS ORDERED: Zofran 4 MG/2 ML VIAL IV ONE (16:17)
[2022-05-16] MEDS ORDERED: Zofran 4 MG/2 ML VIAL ONE (16:29)
[2022-05-16] MEDS ORDERED: Hydromorphone 1 mg/ml Injection ONE (16:29)
[2022-05-16 17:11] LABS: Slide Review 1 YES
== END 2022-05-16 17:29 | disposition home or self-care (01) ==
LOC: ED 12:29
DX: R11.2 Nausea with vomiting, unspecified (principal); E86.0 Dehydration; U07.1 COVID-19; R10.84 Generalized abdominal pain; E11.9 Type 2 diabetes mellitus without complications; I10 Essential (primary) hypertension; E78.5 Hyperlipidemia, unspecified; Z79.4 Long term (current) use of insulin; Z79.85 Long-term (current) use of injectable non-insulin antidiabetic drugs; Z79.899 Other long term (current) drug therapy
CPT/HCPCS: 0241U; 36000; 36415; 80053; 81001; 82150; 83605; 83690; 84484; 85025; 93005; 96360; 96361; 96374; 96375; 99284; J0360; J1170; J2405

== ENCOUNTER 2022-09-14 13:20 | Observation (INO) | payer MEDICARE, OTHER ==
[2022-09-14] MEDS ORDERED: Hydromorphone 1 mg/ml Injection IV ONE ×2 (13:33→15:56)
[2022-09-14] MEDS ORDERED: Zofran 4 MG/2 ML VIAL IV ONE (13:33)
[2022-09-14] MEDS ORDERED: Sodium Chloride 0.9% 1000 ML 1,000 ML IV STA ×3 (13:33→15:51)
[2022-09-14] MEDS ORDERED: Zofran 4 MG/2 ML VIAL ONE (13:39)
[2022-09-14] MEDS ORDERED: Hydromorphone 1 mg/ml Injection ONE ×2 (13:39→16:02)
[2022-09-14] MEDS ORDERED: Sodium Chloride 0.9% 1000 ML 1,000 ML ONE ×3 (13:40→15:52)
[2022-09-14 13:50] LABS: Absolute Neutrophil Ct (ANC) 9.88 x10^3/uL (1.4-6.9); BASOPHIL % 0.3 % (0.0-0.4); Basophil (Absolute #) 0.04 x10^3/uL (0-0.4); Eosinophil % 0.1 % (0.00-5.0); Eosinophil (Absolute #) 0.01 x10^3/uL (0-0.5); Hematocrit 46.1 % (42-50); Hemoglobin 15.2 g/dL (12.5-18.0); IMMATURE GRAN # 0.05 x10^3u/L (0.00-0.03); IMMATURE GRAN % 0.4 % (0.00-0.4); Lymphocyte (Absolute #) 1.13 x10^3/uL (1.0-4.6); Lymphocytes % 9.9 % (24.0-44.0); Mean Cell Volume 87.8 fL (78-100); Mean Platelet Volume 10.8 fL (7.5-11.0); Monocyte (Absolute #) 0.34 x10^3/uL (0.0-1.3); Neutrophil % 86.3 % (36.0-66.0); Platelet Count 222 x10^3/uL (150-450); Red Blood Count 5.25 x10^6/uL (4.1-5.6); Red Cell Distribution Width 12.2 % (11.5-14.0); White Blood Count 11.5 x10^3/uL (4.0-10.5)
[2022-09-14 14:04] LABS: INR 0.97 (0.8-3.0); PROTIME 10.6 SECONDS (9.4-12.5)
[2022-09-14 14:05] LABS: ALBUMIN 4.5 g/dL (3.5-5.0); ALKALINE PHOSPHATASE 187 U/L (38-126); AMYLASE 67 U/L (30-110); ANION GAP 18.1 MEQ/L (5-15); BLOOD UREA NITROGEN 20 mg/dL (9-20); CHLORIDE 104 mmol/L (98-107); Calcium 9.6 mg/dL (8.4-10.2); Carbon Dioxide 21 mmol/L (22-30); Creatinine 1 0.89 mg/dL (0.66-1.25); EST GLOMERULAR FILTRATION RATE > 60.0 ML/MIN; Glucose 311 mg/dL (74-106); LIPASE 113 U/L (23-300); Potassium 3.7 mmol/L (3.5-5.1); SGOT/AST 35 U/L (17-59); SGPT/ALT 27 U/L (0-50); SODIUM 140 mmol/L (137-145)
--- NOTE | 2022-09-14 14:07 | XRAY ---
Indication: Nausea and vomiting. Comparison: April 30, 2022 Portable chest remains clear. Heart not enlarged again with CABG. Bony thorax intact again with mild degenerative changes. Impression: Continued nonacute chest.
--- NOTE | 2022-09-14 14:07 | XRAY ---
Indication: Abdomen pain, nausea, and vomiting. Multiple contiguous axial images obtained through the abdomen and pelvis without contrast. Comparison: April 25 and April 30, 2022. Lung bases demonstrate stable 1.17 m right base noncalcified nodule. Heart is not enlarged. Noncontrasted stomach and bowel loops nonobstructed again with normal appendix. Again nonobstructing punctate calculus in age kidney, enlarged prostate gland, and small left adrenal adenoma. No free fluid/air. Remaining liver, gallbladder, pancreas, spleen, adrenal glands, kidneys, ureters, and bladder are unremarkable for noncontrast exam. Stable mild aortoiliac calcifications without AAA. Osseous structures intact again with mild degenerative changes throughout the spine. Stable small fatty left inguinal hernia. Impression: Again chronic findings including benign right lung base noncalcified nodule, enlarged prostate gland, nonobstructing bilateral renal calculus, left adrenal adenoma, fatty left inguinal hernia, arteriosclerotic disease, and chronic bony findings. No new/acute findings.
--- NOTE | 2022-09-14 14:16 | ERPHSYRPT ---
- History of Present Illness Time Seen by Provider: 09/14/22 13:30 Historian: patient Exam Limitations: no limitations Patient Subjective Stated Complaint: Pt states "I have had chills, body aches, abdominal pain and been vomiting ever since I got up this morning." Triage Nursing Assessment: Pt presented alert and oriented X 3, skin pwd. Pt ambulates with a slow gait, able to speak in clear full sentences. Pt moaning and shaking, pt vomited and dry heaving. Physician History: Patient is a 66-year-old white male with repeated vomiting and retching since approximately 4 AM he also complains of generalized chills vomiting abdominal pain he also states that its been hard to urinate. Timing/Duration: today, hour(s) (12), worse Activities at Onset: none Quality: cramping Abdominal Pain Onset Location: suprapubic, generalized abdomen Severity of Pain-Max: severe Severity of Pain-Current: severe Modifying Factors: Improves With: movement, vomiting Associated Symptoms: diarrhea Previous symptoms: no prior history Allergies/Adverse Reactions: Iodinated Contrast Media Allergy (Verified 05/16/22 12:42) Home Medications: Insulin Glargine [Lantus Insulin] 25 units SQ BID 01/15/20 [History] Pravastatin Sodium 40 mg PO DAILY 01/15/20 [History] lisinopriL [Lisinopril] 5 mg PO DAILY 01/15/20 [History] Aspirin EC 81 mg [Ecotrin 81 mg] 1 tab PO DAILY 04/30/22 [History] Metoprolol Tartrate 25 mg [Lopressor 25MG Tab] 1 tab PO DAILY 04/30/22 [History] Hx Tetanus, Diphtheria Vaccination/Date Given: No Hx Influenza Vaccination/Date Given: No Hx Pneumococcal Vaccination/Date Given: No Immunizations Up to Date: Yes Travel Risk - International Travel Have you traveled outside of the country in past 3 weeks: No - Coronavirus Screening Are you exhibiting any of the following symptoms?: Yes Symptoms: Vomiting/Diarrhea, Headaches/Body Aches/Fatigue Close contact with a COVID-19 positive Pt in past 14-21 Days: No - Vaccine Status Have you recieved a Covid-19 vaccination: Yes [employer]: [employer] - Vaccination Dates Date of 2cond Vaccination (if applicable): 04/2020 - Review of Systems Constitutional: Weakness, No Fever, No Chills Eyes: No Symptoms Ears, Nose, & Throat: No Symptoms Respiratory: No Cough, No Dyspnea Cardiac: No Chest Pain, No Edema, No Syncope Abdominal/Gastrointestinal: Abdominal Pain, Nausea, Vomiting, Diarrhea Genitourinary Symptoms: Hesitancy, No Dysuria Musculoskeletal: No Back Pain, No Neck Pain Skin: No Rash Neurological: No Dizziness, No Focal Weakness, No Sensory Changes Psychological: No Symptoms Endocrine: No Symptoms All Other Systems: Reviewed and Negative - Past Medical History Pertinent Past Medical History: Yes Neurological History: No Pertinent History ENT History: Cataracts, Other Cardiac History: High Cholesterol, Hypertension, Myocardial Infarction ([place]) Respiratory History: Bronchitis Endocrine Medical History: Diabetes Type II Musculoskeletal History: Arthritis, Fractures GI Medical History: GERD History: No Pertinent History Psycho-Social History: No Pertinent History Male Reproductive Disorders: Prostate Problems Other Medical History: had cataract surgery and new lenses put in both eyes in 03/2022 - Past Surgical History Past Surgical History: Yes Neuro Surgical History: No Pertinent History Cardiac: CABG, Cardiac Catheterization Respiratory: No Pertinent History Gastrointestinal: No Pertinent History Genitourinary: No Pertinent History Musculoskeletal: Orthopedic Surgery Male Surgical History: No Pertinent History Other Surgical History: R shoulder 2020 rotator cuff/bicep torn in two - Social History Smoking Status: Former smoker Exposure to second hand smoke: Yes Drug Use: none Patient Lives Alone: No Significant Family History: no pertinent family hx - Nursing Vital Signs Nursing Vital Signs: Initial Vital Signs Temperature 97.4 F 09/14/22 13:30 Pulse Rate 74 09/14/22 13:30 Respiratory Rate 22 09/14/22 13:30 Blood Pressure 188/77 09/14/22 13:30 O2 Sat by Pulse Oximetry 98 09/14/22 13:30 Pain Scale Pain Intensity 6 - Physical Exam General Appearance: moderate distress Eye Exam: PERRL/EOMI, eyes nml inspection Ears, Nose, Throat Exam: dry mucous membranes Neck Exam: normal inspection, non-tender, supple, full range of motion Respiratory Exam: normal breath sounds, lungs clear, No respiratory distress Cardiovascular Exam: regular rate/rhythm, normal heart sounds Gastrointestinal/Abdomen Exam: normal bowel sounds, tenderness, guarding, No rebound Back Exam: normal inspection, normal range of motion, No CVA tenderness, No vertebral tenderness Extremity Exam: normal inspection, normal range of motion, pelvis stable Neurologic Exam: alert, oriented x 3, cooperative, normal mood/affect, nml cerebellar function, sensation nml, No motor deficits Skin Exam: normal color, warm, dry SpO2 Interpretation: normal SpO2: 98 O2 Delivery: Room Air - Course Nursing assessment & vital signs reviewed: Yes EKG Interpreted by Me: RATE (74), Sinus Rhythm, NORMAL AXIS, Non-specific ST Changes - Radiology Exams Chest X-ray Interpretation: Reviewed by me, Negative - CT Exams Abdomen/Pelvis CT Interpretation: Other (Radiologist say no acute findings on the abdominal examination chest x-ray also negative) Ordered Tests: Active Orders 24 hr Category Date Time Status EKG-ER Only STAT Care 09/14/22 13:33 Active IV Insertion STAT Care 09/14/22 13:33 Active ABDOMEN AND PELVIS W/0 CONTRAS [CT] Stat Exams 09/14/22 13:34 Completed CHEST 1 VIEW (PORTABLE) Stat Exams 09/14/22 13:33 Completed AMYLASE Stat Lab 09/14/22 13:40 Completed CBC W DIFF Stat Lab 09/14/22 13:40 Completed CMP Stat Lab 09/14/22 13:40 Completed LIPASE Stat Lab 09/14/22 13:40 Completed Lactic Acid Stat Lab 09/14/22 13:45 Completed Lactic Acid Stat Lab 09/14/22 15:49 Completed POCT GLUCOSE Stat Lab 09/14/22 16:32 Completed PROTIME WITH INR Stat Lab 09/14/22 13:40 Completed TROPONIN Q4H Lab 09/14/22 13:40 Completed TROPONIN Q4H Lab 09/14/22 16:03 Completed TROPONIN Q4H Lab 09/14/22 21:45 Ordered UA W/RFX UR CULTURE Stat Lab 09/14/22 15:33 Completed VENOUS BLOOD GAS Stat Lab 09/14/22 14:43 Completed Medication Summary Generic Name Dose Route Start Last Admin Trade Name Freq PRN Reason Stop Dose Admin Sodium Chloride 1,000 mls @ 999 mls/hr 09/14/22 15:51 09/14/22 15:52 Sodium Chloride 0.9% 1000 Ml IV 09/14/22 16:51 999 mls/hr .Q1H1M STA Administration Discontinued Medications Generic Name Dose Route Start Last Admin Trade Name Freq PRN Reason Stop Dose Admin Hydromorphone HCl 1 mg 09/14/22 13:33 09/14/22 13:42 Hydromorphone 1 Mg/1ml Inj IV 09/14/22 13:34 1 mg STAT ONE Administration Hydromorphone HCl Confirm 09/14/22 13:39 Hydromorphone 1 Mg/1ml Inj Administered 09/14/22 13:40 Dose 1 mg .ROUTE .STK-MED ONE Hydromorphone HCl 1 mg 09/14/22 15:56 09/14/22 16:03 Hydromorphone 1 Mg/1ml Inj IV 09/14/22 15:57 1 mg STAT ONE Administration Hydromorphone HCl Confirm 09/14/22 16:02 Hydromorphone 1 Mg/1ml Inj Administered 09/14/22 16:03 Dose 1 mg .ROUTE .STK-MED ONE Sodium Chloride 1,000 mls @ 999 mls/hr 09/14/22 13:33 09/14/22 14:50 Sodium Chloride 0.9% 1000 Ml IV 09/14/22 14:33 Infused .Q1H1M STA Infusion Sodium Chloride Confirm 09/14/22 13:40 Sodium Chloride 0.9% 1000 Ml Administered 09/14/22 13:41 Dose 1,000 mls @ ud .ROUTE .STK-MED ONE Sodium Chloride 1,000 mls @ 999 mls/hr 09/14/22 14:44 09/14/22 15:56 Sodium Chloride 0.9% 1000 Ml IV 09/14/22 15:44 Infused .Q1H1M STA Infusion Sodium Chloride Confirm 09/14/22 14:48 Sodium Chloride 0.9% 1000 Ml Administered 09/14/22 14:49 Dose 1,000 mls @ ud .ROUTE .STK-MED ONE Sodium Chloride Confirm 09/14/22 15:52 Sodium Chloride 0.9% 1000 Ml Administered 09/14/22 15:53 Dose 1,000 mls @ ud .ROUTE .STK-MED ONE Ondansetron HCl 4 mg 09/14/22 13:33 09/14/22 13:42 Ondansetron Hcl 4 Mg/2 Ml Vial IV 09/14/22 13:34 4 mg STAT ONE Administration Ondansetron HCl Confirm 09/14/22 13:39 Ondansetron Hcl 4 Mg/2 Ml Vial Administered 09/14/22 13:40 Dose 4 mg .ROUTE .K-MED ONE Lab/Rad Data: Laboratory Result Diagrams 09/14/22 13:40 09/14/22 13:40 Laboratory Results 09/14/22 09/14/22 09/14/22 Range/Units 16:32 16:03 15:49 WBC (4.0-10.5) x10^3/uL RBC (4.1-5.6) x10^6/uL Hgb (12.5-18.0) g/dL Hct (42-50) % MCV (78-100) fL MCH (26-32) pg MCHC (32-36) g/dL RDW (11.5-14.0) % Plt Count (150-450) x10^3/uL MPV (7.5-11.0) fL Gran % (36.0-66.0) % Immature Gran % (Auto) (0.00-0.4) % Nucleat RBC Rel Count (0.00-0.1) % Eos # (Auto) (0-0.5) x10^3/uL Immature Gran # (Auto) (0.00-0.03) x10^3u/L Absolute Lymphs (auto) (1.0-4.6) x10^3/uL Absolute Monos (auto) (0.0-1.3) x10^3/uL Absolute Nucleated RBC (0.00-0.01) x10^3u/L Lymphocytes % (24.0-44.0) % Monocytes % (0.0-12.0) % Eosinophils % (0.00-5.0) % Basophils % (0.0-0.4) % Absolute Granulocytes (1.4-6.9) x10^3/uL Basophils # (0-0.4) x10^3/uL PT (9.4-12.5) SECONDS INR (0.8-3.0) pO2/FiO2 Ratio % VBG pH (7.32-7.42) VBG pCO2 at Pat Temp (42-55) mm/Hg VBG pO2 at Pat Temp (25-40) mm/Hg VBG HCO3 (22-28) meq/L VBG O2 Sat ([place]) (95-100) VBG Base Excess (-2.0-2.0) VBG Hemoglobin VBG Carboxyhemoglobin (0.0-6.9) % T HGB POC Potassium (3.5-5.1) Sodium (137-145) mmol/L Potassium (3.5-5.1) mmol/L Chloride (98-107) mmol/L Carbon Dioxide (22-30) mmol/L Anion Gap (5-15) MEQ/L BUN (9-20) mg/dL Creatinine (0.66-1.25) mg/dL Estimated GFR ML/MIN Glucose (74-106) mg/dL POC Glucometer 230 H (74 to 106) mg/dL Lactic Acid 3.1 H (0.4-2.0) Calcium (8.4-10.2) mg/dL Total Bilirubin (0.2-1.3) mg/dL AST (17-59) U/L ALT (0-50) U/L Alkaline Phosphatase (38-126) U/L Troponin I < 0.012 (0.000-0.034) ng/mL Serum Total Protein (6.3-8.2) g/dL Albumin (3.5-5.0) g/dL Amylase (30-110) U/L Lipase (23-300) U/L Urine Color (Yellow) Urine Appearance (Clear) Urine pH (4.6-8.0) Ur Specific [place] (1.005-1.030) Urine Protein (Negative) Urine Glucose (UA) (Negative) mg/dL Urine Ketones (Negative) Urine Blood (Negative) Urine Nitrite (Negative) Urine Bilirubin (Negative) Urine Urobilinogen (0.2) mg/dL Ur Leukocyte Esterase (Negative) U Hyaline Cast (Auto) (0-2) /LPF Urine Microscopic RBC (0-5) /HPF Urine Microscopic WBC (0-5) /HPF Ur Epithelial Cells (None Seen) /HPF Urine Bacteria (None Seen) /HPF Urine Culture Reflexed (NO) Influenza Type A Ag (NEGATIVE) Influenza Type B Ag (NEGATIVE) RSV (PCR) (NEGATIVE) SARS-CoV-2 (PCR) (NEGATIVE) Group A Strep Antibody (NEGATIVE) 09/14/22 09/14/22 09/14/22 Range/Units 15:47 15:33 14:43 WBC (4.0-10.5) x10^3/uL RBC (4.1-5.6) x10^6/uL Hgb (12.5-18.0) g/dL Hct (42-50) % MCV (78-100) fL MCH (26-32) pg MCHC (32-36) g/dL RDW (11.5-14.0) % Plt Count (150-450) x10^3/uL MPV (7.5-11.0) fL Gran % (36.0-66.0) % Immature Gran % (Auto) (0.00-0.4) % Nucleat RBC Rel Count (0.00-0.1) % Eos # (Auto) (0-0.5) x10^3/uL Immature Gran # (Auto) (0.00-0.03) x10^3u/L Absolute Lymphs (auto) (1.0-4.6) x10^3/uL Absolute Monos (auto) (0.0-1.3) x10^3/uL Absolute Nucleated RBC (0.00-0.01) x10^3u/L Lymphocytes % (24.0-44.0) % Monocytes % (0.0-12.0) % Eosinophils % (0.00-5.0) % Basophils % (0.0-0.4) % Absolute Granulocytes (1.4-6.9) x10^3/uL Basophils # (0-0.4) x10^3/uL PT (9.4-12.5) SECONDS INR (0.8-3.0) pO2/FiO2 Ratio 21.0 % VBG pH 7.48 H (7.32-7.42) VBG pCO2 at Pat Temp 32 L (42-55) mm/Hg VBG pO2 at Pat Temp 47 H (25-40) mm/Hg VBG HCO3 23.8 (22-28) meq/L VBG O2 Sat ([place]) 84.5 L (95-100) VBG Base Excess 1.1 (-2.0-2.0) VBG Hemoglobin 15.7 VBG Carboxyhemoglobin 3.7 (0.0-6.9) % T HGB POC Potassium 3.5 (3.5-5.1) Sodium (137-145) mmol/L Potassium (3.5-5.1) mmol/L Chloride (98-107) mmol/L Carbon Dioxide (22-30) mmol/L Anion Gap (5-15) MEQ/L BUN (9-20) mg/dL Creatinine (0.66-1.25) mg/dL Estimated GFR ML/MIN Glucose (74-106) mg/dL POC Glucometer (74 to 106) mg/dL Lactic Acid (0.4-2.0) Calcium (8.4-10.2) mg/dL Total Bilirubin (0.2-1.3) mg/dL AST (17-59) U/L ALT (0-50) U/L Alkaline Phosphatase (38-126) U/L Troponin I (0.000-0.034) ng/mL Serum Total Protein (6.3-8.2) g/dL Albumin (3.5-5.0) g/dL Amylase (30-110) U/L Lipase (23-300) U/L Urine Color Yellow (Yellow) Urine Appearance Clear (Clear) Urine pH 8.0 (4.6-8.0) Ur Specific [place] 1.025 (1.005-1.030) Urine Protein 30 (Negative) Urine Glucose (UA) >=1000 A (Negative) mg/dL Urine Ketones 15 A (Negative) Urine Blood Negative (Negative) Urine Nitrite Negative (Negative) Urine Bilirubin Negative (Negative) Urine Urobilinogen 0.2 (0.2) mg/dL Ur Leukocyte Esterase Negative (Negative) U Hyaline Cast (Auto) NONE SEEN (0-2) /LPF Urine Microscopic RBC 0-2 (0-5) /HPF Urine Microscopic WBC 0-2 (0-5) /HPF Ur Epithelial Cells None Seen (None Seen) /HPF Urine Bacteria None Seen (None Seen) /HPF Urine Culture Reflexed NO (NO) Influenza Type A Ag NEGATIVE (NEGATIVE) Influenza Type B Ag NEGATIVE (NEGATIVE) RSV (PCR) NEGATIVE (NEGATIVE) SARS-CoV-2 (PCR) NEGATIVE (NEGATIVE) Group A Strep Antibody NOT DETECTED (NEGATIVE) 09/14/22 09/14/22 09/14/22 Range/Units 13:45 13:40 13:40 WBC (4.0-10.5) x10^3/uL RBC (4.1-5.6) x10^6/uL Hgb (12.5-18.0) g/dL Hct (42-50) % MCV (78-100) fL MCH (26-32) pg MCHC (32-36) g/dL RDW (11.5-14.0) % Plt Count (150-450) x10^3/uL MPV (7.5-11.0) fL Gran % (36.0-66.0) % Immature Gran % (Auto) (0.00-0.4) % Nucleat RBC Rel Count (0.00-0.1) % Eos # (Auto) (0-0.5) x10^3/uL Immature Gran # (Auto) (0.00-0.03) x10^3u/L Absolute Lymphs (auto) (1.0-4.6) x10^3/uL Absolute Monos (auto) (0.0-1.3) x10^3/uL Absolute Nucleated RBC (0.00-0.01) x10^3u/L Lymphocytes % (24.0-44.0) % Monocytes % (0.0-12.0) % Eosinophils % (0.00-5.0) % Basophils % (0.0-0.4) % Absolute Granulocytes (1.4-6.9) x10^3/uL Basophils # (0-0.4) x10^3/uL PT 10.6 (9.4-12.5) SECONDS INR 0.97 (0.8-3.0) pO2/FiO2 Ratio % VBG pH (7.32-7.42) VBG pCO2 at Pat Temp (42-55) mm/Hg VBG pO2 at Pat Temp (25-40) mm/Hg VBG HCO3 (22-28) meq/L VBG O2 Sat ([place]) (95-100) VBG Base Excess (-2.0-2.0) VBG Hemoglobin VBG Carboxyhemoglobin (0.0-6.9) % T HGB POC Potassium (3.5-5.1) Sodium (137-145) mmol/L Potassium (3.5-5.1) mmol/L Chloride (98-107) mmol/L Carbon Dioxide (22-30) mmol/L Anion Gap (5-15) MEQ/L BUN (9-20) mg/dL Creatinine (0.66-1.25) mg/dL Estimated GFR ML/MIN Glucose (74-106) mg/dL POC Glucometer (74 to 106) mg/dL Lactic Acid 3.7 H (0.4-2.0) Calcium (8.4-10.2) mg/dL Total Bilirubin (0.2-1.3) mg/dL AST (17-59) U/L ALT (0-50) U/L Alkaline Phosphatase (38-126) U/L Troponin I < 0.012 (0.000-0.034) ng/mL Serum Total Protein (6.3-8.2) g/dL Albumin (3.5-5.0) g/dL Amylase (30-110) U/L Lipase (23-300) U/L Urine Color (Yellow) Urine Appearance (Clear) Urine pH (4.6-8.0) Ur Specific [place] (1.005-1.030) Urine Protein (Negative) Urine Glucose (UA) (Negative) mg/dL Urine Ketones (Negative) Urine Blood (Negative) Urine Nitrite (Negative) Urine Bilirubin (Negative) Urine Urobilinogen (0.2) mg/dL Ur Leukocyte Esterase (Negative) U Hyaline Cast (Auto) (0-2) /LPF Urine Microscopic RBC (0-5) /HPF Urine Microscopic WBC (0-5) /HPF Ur Epithelial Cells (None Seen) /HPF Urine Bacteria (None Seen) /HPF Urine Culture Reflexed (NO) Influenza Type A Ag (NEGATIVE) Influenza Type B Ag (NEGATIVE) RSV (PCR) (NEGATIVE) SARS-CoV-2 (PCR) (NEGATIVE) Group A Strep Antibody (NEGATIVE) 09/14/22 09/14/22 Range/Units 13:40 13:40 WBC 11.5 H (4.0-10.5) x10^3/uL RBC 5.25 (4.1-5.6) x10^6/uL Hgb 15.2 (12.5-18.0) g/dL Hct 46.1 (42-50) % MCV 87.8 (78-100) fL MCH 29.0 (26-32) pg MCHC 33.0 (32-36) g/dL RDW 12.2 (11.5-14.0) % Plt Count 222 (150-450) x10^3/uL MPV 10.8 (7.5-11.0) fL Gran % 86.3 H (36.0-66.0) % Immature Gran % (Auto) 0.4 (0.00-0.4) % Nucleat RBC Rel Count 0.0 (0.00-0.1) % Eos # (Auto) 0.01 (0-0.5) x10^3/uL Immature Gran # (Auto) 0.05 H (0.00-0.03) x10^3u/L Absolute Lymphs (auto) 1.13 (1.0-4.6) x10^3/uL Absolute Monos (auto) 0.34 (0.0-1.3) x10^3/uL Absolute Nucleated RBC 0.00 (0.00-0.01) x10^3u/L Lymphocytes % 9.9 L (24.0-44.0) % Monocytes % 3.0 (0.0-12.0) % Eosinophils % 0.1 (0.00-5.0) % Basophils % 0.3 (0.0-0.4) % Absolute Granulocytes 9.88 H (1.4-6.9) x10^3/uL Basophils # 0.04 (0-0.4) x10^3/uL PT (9.4-12.5) SECONDS INR (0.8-3.0) pO2/FiO2 Ratio % VBG pH (7.32-7.42) VBG pCO2 at Pat Temp (42-55) mm/Hg VBG pO2 at Pat Temp (25-40) mm/Hg VBG HCO3 (22-28) meq/L VBG O2 Sat ([place]) (95-100) VBG Base Excess (-2.0-2.0) VBG Hemoglobin VBG Carboxyhemoglobin (0.0-6.9) % T HGB POC Potassium (3.5-5.1) Sodium 140 (137-145) mmol/L Potassium 3.7 (3.5-5.1) mmol/L Chloride 104 (98-107) mmol/L Carbon Dioxide 21 L (22-30) mmol/L Anion Gap 18.1 H (5-15) MEQ/L BUN 20 (9-20) mg/dL Creatinine 0.89 (0.66-1.25) mg/dL Estimated GFR > 60.0 ML/MIN Glucose 311 H (74-106) mg/dL POC Glucometer (74 to 106) mg/dL Lactic Acid (0.4-2.0) Calcium 9.6 (8.4-10.2) mg/dL Total Bilirubin 1.00 (0.2-1.3) mg/dL AST 35 (17-59) U/L ALT 27 (0-50) U/L Alkaline Phosphatase 187 H (38-126) U/L Troponin I (0.000-0.034) ng/mL Serum Total Protein 8.0 (6.3-8.2) g/dL Albumin 4.5 (3.5-5.0) g/dL Amylase 67 (30-110) U/L Lipase 113 (23-300) U/L Urine Color (Yellow) Urine Appearance (Clear) Urine pH (4.6-8.0) Ur Specific [place] (1.005-1.030) Urine Protein (Negative) Urine Glucose (UA) (Negative) mg/dL Urine Ketones (Negative) Urine Blood (Negative) Urine Nitrite (Negative) Urine Bilirubin (Negative) Urine Urobilinogen (0.2) mg/dL Ur Leukocyte Esterase (Negative) U Hyaline Cast (Auto) (0-2) /LPF Urine Microscopic RBC (0-5) /HPF Urine Microscopic WBC (0-5) /HPF Ur Epithelial Cells (None Seen) /HPF Urine Bacteria (None Seen) /HPF Urine Culture Reflexed (NO) Influenza Type A Ag (NEGATIVE) Influenza Type B Ag (NEGATIVE) RSV (PCR) (NEGATIVE) SARS-CoV-2 (PCR) (NEGATIVE) Group A Strep Antibody (NEGATIVE) - Progress Progress: improved Progress Note: 09/14/22 16:43 Plan was discussed with the hospitalist we will be admitting this patient on observation to monitor his blood sugar and his metabolism to make sure he is not going into a DKA and that its just a bad dehydration and gastroenteritis. Discussed with DrBartolo: Other (Dr Ruiz) Will see patient in: hospital (observation) Medical Desision Making - Discussion of managment Care discussed with:: hospitalist Reviewed:: Test results Agreed on:: Treatment plan, place in obs Will see patient: in hospital - Diagnostic Testing Diagnostic test were ordered, analyzed, and reviewed by me: Yes Radiological Interpretation: Reviewed by me - Risk of complications The pt has a mod risk of morbidity or mortality based on: Need for prescription drug management - Departure Departure Disposition: Observation Clinical Impression: Dehydration, Gastroenteritis Condition: Stable Critical Care Time: No Referrals: GRZEGORZ JOHNSON MD [Primary Care Provider] - Follow up/PCP as directed
[2022-09-14 14:55] LABS: VBG BASE EXCESS 1.1 (-2.0-2.0); VBG CARBOXYHEMOGLOBIN 3.7 % T HGB (0.0-6.9); VBG HCO3- 23.8 meq/L (22-28); VBG HEMOGLOBIN 15.7; VBG O2 SATURATION 84.5 (95-100); VBG POTASSIUM 3.5 (3.5-5.1); VBG pH 7.48 (7.32-7.42)
[2022-09-14 16:01] LABS: Bacteria None Seen /HPF (None Seen); Bilirubin Negative (Negative); Blood Negative (Negative); Epithelial Cells None Seen /HPF (None Seen); Glucose, Urine >=1000 mg/dL (Negative); Hyaline Casts NONE SEEN /LPF (0-2); Ketones 15 (Negative); Leukocyte Esterase Negative (Negative); Nitrite Negative (Negative); Protein,Urine Dip 30 (Negative); RBC 0-2 /HPF (0-5); Specific Gravity 1.025 (1.005-1.030); Urobilinogen 0.2 mg/dL (0.2); WBC 0-2 /HPF (0-5)
[2022-09-14 16:03] LABS: Appearance Clear (Clear)
[2022-09-14 16:04] LABS: ADD URINE CULTURE? NO (NO)
[2022-09-14 16:13] LABS: Group A Strep NOT DETECTED (NEGATIVE)
[2022-09-14 16:26] LABS: INFLUENZA A NEGATIVE (NEGATIVE); INFLUENZA B NEGATIVE (NEGATIVE); RESPIRATORY SYNCTIAL VIRUS NEGATIVE (NEGATIVE); SARS-CoV-2 Xpert Express NEGATIVE (NEGATIVE)
[2022-09-14] MEDS: Sodium Chloride 0.9% 1000 ML 1,000 ML IV SCH ×3 (16:53→23:03)
[2022-09-14] MEDS ORDERED: TYLENOL 325 MG PO PRN (20:14)
[2022-09-14] MEDS ORDERED: HUMULIN R SQ PRN (20:14)
--- NOTE | 2022-09-14 20:23 | PCM.HP ---
History of Present Illness - Chief Complaint Chief Complaint: Gastroenteritis History of Present Illness: is a 66 year old male with past medical history of DMII, HTN, HLP, BPH, HLP presented to ER with c/o nausea, vomiting, cramping abd pain, subjective fever, chills and body-ache. He says the symptoms started this am at 4. " I woke up like this". Was ok when he went to sleep. Denies any sick contact. Denies eating anything new. Denies any recent travel He is resting in bed, not in distress. On RA. Denies diarrhea, dysuria, hematuria, flank pain. - Review of Systems Constitutional: Fever, Chills Eyes: No Symptoms Ears, Nose, & Throat: No Symptoms Respiratory: No Symptoms Cardiac: No Symptoms Abdominal/Gastrointestinal: Abdominal Pain, Nausea, Vomiting Genitourinary Symptoms: No Symptoms Musculoskeletal: Myalgias Skin: No Symptoms Neurological: No Symptoms Psychological: No Symptoms Endocrine: No Symptoms Hematologic/Lymphatic: No Symptoms Immunological/Allergic: No Symptoms Medications & Allergies Home Medications: Home Medication List Insulin Glargine [Lantus Insulin] 25 units SQ BID 01/15/20 [History Confirmed 09/14/22] Pravastatin Sodium 40 mg PO DAILY 01/15/20 [History Confirmed 09/14/22] lisinopriL [Lisinopril] 5 mg PO DAILY 01/15/20 [History Confirmed 09/14/22] Tamsulosin HCl 0.4 mg [Flomax 0.4 MG] 0.4 mg PO DAILY #30 cap 06/01/20 [Rx Confirmed 09/14/22] Aspirin EC 81 mg [Ecotrin 81 mg] 81 mg PO DAILY 04/30/22 [History Confirmed 09/14/22] Metoprolol Tartrate 25 mg [Lopressor 25MG Tab] 25 mg PO DAILY 04/30/22 [History Confirmed 09/14/22] Allergies/Adverse Reactions: Allergies Allergy/AdvReac Type Severity Reaction Status Date / Time Iodinated Contrast Media Allergy Verified 05/16/22 12:42 - Past Medical History Past Medical History: Yes Neurological History: No Pertinent History ENT History: Cataracts, Other Cardiac History: High Cholesterol, Hypertension, Myocardial Infarction (PR) Respiratory History: Bronchitis Endocrine Medical History: Diabetes Type II Musculoskelatal History: Arthritis, Fractures GI Medical History: GERD History: No Pertinent History Pyscho-Social History: No Pertinent History Male Reproductive Disorders: Prostate Problems Comment: had cataract surgery and new lenses put in both eyes in 03/2022 - Past Surgical History Past Surgical History: Yes Neuro Surgical History: No Pertinent History Cardiac History: CABG, Cardiac Catheterization Respiratory Surgery: No Pertinent History GI Surgical History: No Pertinent History Genitourinary Surgical Hx: No Pertinent History Musculskeletal Surgical Hx: Orthopedic Surgery Male Surgical History: No Pertinent History Other Surgical History: R shoulder 2020 rotator cuff/bicep torn in two - Social History Smoking Status: Never smoker Exposure to second hand smoke: Yes Alcohol: None Drug Use: none Significant Family History: no pertinent family hx - Physical Exam Vital Signs: Vital Signs - 24 hr Temp Pulse Resp BP BP Pulse Ox 09/14/22 18:00 97.4 F 77 188/77 98 09/14/22 17:12 97.4 F 77 188/77 98 09/14/22 16:48 97.4 F 77 188/77 98 09/14/22 16:45 98 09/14/22 16:30 77 18 149/67 98 09/14/22 16:00 80 12 179/81 100 09/14/22 15:30 74 17 194/93 95 09/14/22 15:00 77 13 199/95 99 09/14/22 14:38 71 15 177/88 98 09/14/22 14:37 72 15 184/84 98 09/14/22 13:30 97.4 F 74 22 188/77 98 General Appearance: no apparent distress Neurologic Exam: alert, oriented x 3, cooperative, normal mood/affect Eye Exam: PERRL/EOMI, eyes nml inspection Ears, Nose, Throat Exam: normal ENT inspection Neck Exam: normal inspection, supple Respiratory Exam: normal breath sounds, lungs clear Cardiovascular Exam: regular rate/rhythm, normal heart sounds Gastrointestinal/Abdomen Exam: soft, normal bowel sounds Rectal Exam: deferred Back Exam: normal inspection Extremity Exam: normal inspection Skin Exam: normal color, warm, dry Results - Labs Lab/Micro Results: Lab Results-Last 24 Hours 09/14/22 09/14/22 09/14/22 Range/Units 13:40 13:40 13:40 WBC 11.5 H (4.0-10.5) x10^3/uL RBC 5.25 (4.1-5.6) x10^6/uL Hgb 15.2 (12.5-18.0) g/dL Hct 46.1 (42-50) % MCV 87.8 (78-100) fL MCH 29.0 (26-32) pg MCHC 33.0 (32-36) g/dL RDW 12.2 (11.5-14.0) % Plt Count 222 (150-450) x10^3/uL MPV 10.8 (7.5-11.0) fL Gran % 86.3 H (36.0-66.0) % Immature Gran % (Auto) 0.4 (0.00-0.4) % Nucleat RBC Rel Count 0.0 (0.00-0.1) % Eos # (Auto) 0.01 (0-0.5) x10^3/uL Immature Gran # (Auto) 0.05 H (0.00-0.03) x10^3u/L Absolute Lymphs (auto) 1.13 (1.0-4.6) x10^3/uL Absolute Monos (auto) 0.34 (0.0-1.3) x10^3/uL Absolute Nucleated RBC 0.00 (0.00-0.01) x10^3u/L Lymphocytes % 9.9 L (24.0-44.0) % Monocytes % 3.0 (0.0-12.0) % Eosinophils % 0.1 (0.00-5.0) % Basophils % 0.3 (0.0-0.4) % Absolute Granulocytes 9.88 H (1.4-6.9) x10^3/uL Basophils # 0.04 (0-0.4) x10^3/uL PT 10.6 (9.4-12.5) SECONDS INR 0.97 (0.8-3.0) pO2/FiO2 Ratio % VBG pH (7.32-7.42) VBG pCO2 at Pat Temp (42-55) mm/Hg VBG pO2 at Pat Temp (25-40) mm/Hg VBG HCO3 (22-28) meq/L VBG O2 Sat ([place]) (95-100) VBG Base Excess (-2.0-2.0) VBG Hemoglobin VBG Carboxyhemoglobin (0.0-6.9) % T HGB POC Potassium (3.5-5.1) Sodium 140 (137-145) mmol/L Potassium 3.7 (3.5-5.1) mmol/L Chloride 104 (98-107) mmol/L Carbon Dioxide 21 L (22-30) mmol/L Anion Gap 18.1 H (5-15) MEQ/L BUN 20 (9-20) mg/dL Creatinine 0.89 (0.66-1.25) mg/dL Estimated GFR > 60.0 ML/MIN Glucose 311 H (74-106) mg/dL POC Glucometer (74 to 106) mg/dL Lactic Acid (0.4-2.0) Calcium 9.6 (8.4-10.2) mg/dL Total Bilirubin 1.00 (0.2-1.3) mg/dL AST 35 (17-59) U/L ALT 27 (0-50) U/L Alkaline Phosphatase 187 H (38-126) U/L Troponin I (0.000-0.034) ng/mL Serum Total Protein 8.0 (6.3-8.2) g/dL Albumin 4.5 (3.5-5.0) g/dL Amylase 67 (30-110) U/L Lipase 113 (23-300) U/L Urine Color (Yellow) Urine Appearance (Clear) Urine pH (4.6-8.0) Ur Specific [place] (1.005-1.030) Urine Protein (Negative) Urine Glucose (UA) (Negative) mg/dL Urine Ketones (Negative) Urine Blood (Negative) Urine Nitrite (Negative) Urine Bilirubin (Negative) Urine Urobilinogen (0.2) mg/dL Ur Leukocyte Esterase (Negative) U Hyaline Cast (Auto) (0-2) /LPF Urine Microscopic RBC (0-5) /HPF Urine Microscopic WBC (0-5) /HPF Ur Epithelial Cells (None Seen) /HPF Urine Bacteria (None Seen) /HPF Urine Culture Reflexed (NO) Influenza Type A Ag (NEGATIVE) Influenza Type B Ag (NEGATIVE) RSV (PCR) (NEGATIVE) SARS-CoV-2 (PCR) (NEGATIVE) Group A Strep Antibody (NEGATIVE) 09/14/22 09/14/22 09/14/22 Range/Units 13:40 13:45 14:43 WBC (4.0-10.5) x10^3/uL RBC (4.1-5.6) x10^6/uL Hgb (12.5-18.0) g/dL Hct (42-50) % MCV (78-100) fL MCH (26-32) pg MCHC (32-36) g/dL RDW (11.5-14.0) % Plt Count (150-450) x10^3/uL MPV (7.5-11.0) fL Gran % (36.0-66.0) % Immature Gran % (Auto) (0.00-0.4) % Nucleat RBC Rel Count (0.00-0.1) % Eos # (Auto) (0-0.5) x10^3/uL Immature Gran # (Auto) (0.00-0.03) x10^3u/L Absolute Lymphs (auto) (1.0-4.6) x10^3/uL Absolute Monos (auto) (0.0-1.3) x10^3/uL Absolute Nucleated RBC (0.00-0.01) x10^3u/L Lymphocytes % (24.0-44.0) % Monocytes % (0.0-12.0) % Eosinophils % (0.00-5.0) % Basophils % (0.0-0.4) % Absolute Granulocytes (1.4-6.9) x10^3/uL Basophils # (0-0.4) x10^3/uL PT (9.4-12.5) SECONDS INR (0.8-3.0) pO2/FiO2 Ratio 21.0 % VBG pH 7.48 H (7.32-7.42) VBG pCO2 at Pat Temp 32 L (42-55) mm/Hg VBG pO2 at Pat Temp 47 H (25-40) mm/Hg VBG HCO3 23.8 (22-28) meq/L VBG O2 Sat ([place]) 84.5 L (95-100) VBG Base Excess 1.1 (-2.0-2.0) VBG Hemoglobin 15.7 VBG Carboxyhemoglobin 3.7 (0.0-6.9) % T HGB POC Potassium 3.5 (3.5-5.1) Sodium (137-145) mmol/L Potassium (3.5-5.1) mmol/L Chloride (98-107) mmol/L Carbon Dioxide (22-30) mmol/L Anion Gap (5-15) MEQ/L BUN (9-20) mg/dL Creatinine (0.66-1.25) mg/dL Estimated GFR ML/MIN Glucose (74-106) mg/dL POC Glucometer (74 to 106) mg/dL Lactic Acid 3.7 H (0.4-2.0) Calcium (8.4-10.2) mg/dL Total Bilirubin (0.2-1.3) mg/dL AST (17-59) U/L ALT (0-50) U/L Alkaline Phosphatase (38-126) U/L Troponin I < 0.012 (0.000-0.034) ng/mL Serum Total Protein (6.3-8.2) g/dL Albumin (3.5-5.0) g/dL Amylase (30-110) U/L Lipase (23-300) U/L Urine Color (Yellow) Urine Appearance (Clear) Urine pH (4.6-8.0) Ur Specific [place] (1.005-1.030) Urine Protein (Negative) Urine Glucose (UA) (Negative) mg/dL Urine Ketones (Negative) Urine Blood (Negative) Urine Nitrite (Negative) Urine Bilirubin (Negative) Urine Urobilinogen (0.2) mg/dL Ur Leukocyte Esterase (Negative) U Hyaline Cast (Auto) (0-2) /LPF Urine Microscopic RBC (0-5) /HPF Urine Microscopic WBC (0-5) /HPF Ur Epithelial Cells (None Seen) /HPF Urine Bacteria (None Seen) /HPF Urine Culture Reflexed (NO) Influenza Type A Ag (NEGATIVE) Influenza Type B Ag (NEGATIVE) RSV (PCR) (NEGATIVE) SARS-CoV-2 (PCR) (NEGATIVE) Group A Strep Antibody (NEGATIVE) 09/14/22 09/14/22 09/14/22 Range/Units 15:33 15:47 15:49 WBC (4.0-10.5) x10^3/uL RBC (4.1-5.6) x10^6/uL Hgb (12.5-18.0) g/dL Hct (42-50) % MCV (78-100) fL MCH (26-32) pg MCHC (32-36) g/dL RDW (11.5-14.0) % Plt Count (150-450) x10^3/uL MPV (7.5-11.0) fL Gran % (36.0-66.0) % Immature Gran % (Auto) (0.00-0.4) % Nucleat RBC Rel Count (0.00-0.1) % Eos # (Auto) (0-0.5) x10^3/uL Immature Gran # (Auto) (0.00-0.03) x10^3u/L Absolute Lymphs (auto) (1.0-4.6) x10^3/uL Absolute Monos (auto) (0.0-1.3) x10^3/uL Absolute Nucleated RBC (0.00-0.01) x10^3u/L Lymphocytes % (24.0-44.0) % Monocytes % (0.0-12.0) % Eosinophils % (0.00-5.0) % Basophils % (0.0-0.4) % Absolute Granulocytes (1.4-6.9) x10^3/uL Basophils # (0-0.4) x10^3/uL PT (9.4-12.5) SECONDS INR (0.8-3.0) pO2/FiO2 Ratio % VBG pH (7.32-7.42) VBG pCO2 at Pat Temp (42-55) mm/Hg VBG pO2 at Pat Temp (25-40) mm/Hg VBG HCO3 (22-28) meq/L VBG O2 Sat ([place]) (95-100) VBG Base Excess (-2.0-2.0) VBG Hemoglobin VBG Carboxyhemoglobin (0.0-6.9) % T HGB POC Potassium (3.5-5.1) Sodium (137-145) mmol/L Potassium (3.5-5.1) mmol/L Chloride (98-107) mmol/L Carbon Dioxide (22-30) mmol/L Anion Gap (5-15) MEQ/L BUN (9-20) mg/dL Creatinine (0.66-1.25) mg/dL Estimated GFR ML/MIN Glucose (74-106) mg/dL POC Glucometer (74 to 106) mg/dL Lactic Acid 3.1 H (0.4-2.0) Calcium (8.4-10.2) mg/dL Total Bilirubin (0.2-1.3) mg/dL AST (17-59) U/L ALT (0-50) U/L Alkaline Phosphatase (38-126) U/L Troponin I (0.000-0.034) ng/mL Serum Total Protein (6.3-8.2) g/dL Albumin (3.5-5.0) g/dL Amylase (30-110) U/L Lipase (23-300) U/L Urine Color Yellow (Yellow) Urine Appearance Clear (Clear) Urine pH 8.0 (4.6-8.0) Ur Specific [place] 1.025 (1.005-1.030) Urine Protein 30 (Negative) Urine Glucose (UA) >=1000 A (Negative) mg/dL Urine Ketones 15 A (Negative) Urine Blood Negative (Negative) Urine Nitrite Negative (Negative) Urine Bilirubin Negative (Negative) Urine Urobilinogen 0.2 (0.2) mg/dL Ur Leukocyte Esterase Negative (Negative) U Hyaline Cast (Auto) NONE SEEN (0-2) /LPF Urine Microscopic RBC 0-2 (0-5) /HPF Urine Microscopic WBC 0-2 (0-5) /HPF Ur Epithelial Cells None Seen (None Seen) /HPF Urine Bacteria None Seen (None Seen) /HPF Urine Culture Reflexed NO (NO) Influenza Type A Ag NEGATIVE (NEGATIVE) Influenza Type B Ag NEGATIVE (NEGATIVE) RSV (PCR) NEGATIVE (NEGATIVE) SARS-CoV-2 (PCR) NEGATIVE (NEGATIVE) Group A Strep Antibody NOT DETECTED (NEGATIVE) 09/14/22 09/14/22 Range/Units 16:03 16:32 WBC (4.0-10.5) x10^3/uL RBC (4.1-5.6) x10^6/uL Hgb (12.5-18.0) g/dL Hct (42-50) % MCV (78-100) fL MCH (26-32) pg MCHC (32-36) g/dL RDW (11.5-14.0) % Plt Count (150-450) x10^3/uL MPV (7.5-11.0) fL Gran % (36.0-66.0) % Immature Gran % (Auto) (0.00-0.4) % Nucleat RBC Rel Count (0.00-0.1) % Eos # (Auto) (0-0.5) x10^3/uL Immature Gran # (Auto) (0.00-0.03) x10^3u/L Absolute Lymphs (auto) (1.0-4.6) x10^3/uL Absolute Monos (auto) (0.0-1.3) x10^3/uL Absolute Nucleated RBC (0.00-0.01) x10^3u/L Lymphocytes % (24.0-44.0) % Monocytes % (0.0-12.0) % Eosinophils % (0.00-5.0) % Basophils % (0.0-0.4) % Absolute Granulocytes (1.4-6.9) x10^3/uL Basophils # (0-0.4) x10^3/uL PT (9.4-12.5) SECONDS INR (0.8-3.0) pO2/FiO2 Ratio % VBG pH (7.32-7.42) VBG pCO2 at Pat Temp (42-55) mm/Hg VBG pO2 at Pat Temp (25-40) mm/Hg VBG HCO3 (22-28) meq/L VBG O2 Sat ([place]) (95-100) VBG Base Excess (-2.0-2.0) VBG Hemoglobin VBG Carboxyhemoglobin (0.0-6.9) % T HGB POC Potassium (3.5-5.1) Sodium (137-145) mmol/L Potassium (3.5-5.1) mmol/L Chloride (98-107) mmol/L Carbon Dioxide (22-30) mmol/L Anion Gap (5-15) MEQ/L BUN (9-20) mg/dL Creatinine (0.66-1.25) mg/dL Estimated GFR ML/MIN Glucose (74-106) mg/dL POC Glucometer 230 H (74 to 106) mg/dL Lactic Acid (0.4-2.0) Calcium (8.4-10.2) mg/dL Total Bilirubin (0.2-1.3) mg/dL AST (17-59) U/L ALT (0-50) U/L Alkaline Phosphatase (38-126) U/L Troponin I < 0.012 (0.000-0.034) ng/mL Serum Total Protein (6.3-8.2) g/dL Albumin (3.5-5.0) g/dL Amylase (30-110) U/L Lipase (23-300) U/L Urine Color (Yellow) Urine Appearance (Clear) Urine pH (4.6-8.0) Ur Specific [place] (1.005-1.030) Urine Protein (Negative) Urine Glucose (UA) (Negative) mg/dL Urine Ketones (Negative) Urine Blood (Negative) Urine Nitrite (Negative) Urine Bilirubin (Negative) Urine Urobilinogen (0.2) mg/dL Ur Leukocyte Esterase (Negative) U Hyaline Cast (Auto) (0-2) /LPF Urine Microscopic RBC (0-5) /HPF Urine Microscopic WBC (0-5) /HPF Ur Epithelial Cells (None Seen) /HPF Urine Bacteria (None Seen) /HPF Urine Culture Reflexed (NO) Influenza Type A Ag (NEGATIVE) Influenza Type B Ag (NEGATIVE) RSV (PCR) (NEGATIVE) SARS-CoV-2 (PCR) (NEGATIVE) Group A Strep Antibody (NEGATIVE) - Radiology Impressions Radiology Exams & Impressions: Radiology Procedures Category Date Time Status ABDOMEN AND PELVIS W/0 CONTRAS [CT] Stat Exams 09/14/22 13:34 Completed CHEST 1 VIEW (PORTABLE) Stat Exams 09/14/22 13:33 Completed Assessment/Plan (1) Sepsis Current Visit: Yes Status: Acute Assessment & Plan: WBC 11.5, tachycardia, lactic acid 3.1. Viral gastroenteritis as the source. ER gave him 3Ls total of NS. He is getting now 100ml/hr. Viral work-up negative thus far. BC ordered. Supportive measures. recheck lactic acid in AM (2) Gastroenteritis Current Visit: Yes Status: Acute Assessment & Plan: Likely viral in nature - thus supportive measures with IVF and symptomatic relief. IVF given in ER in form of boluses, and now on 100ml/hr of NS Code(s): K52.9 - NONINFECTIVE GASTROENTERITIS AND COLITIS, UNSPECIFIED (3) Leukocytosis Current Visit: Yes Status: Acute Assessment & Plan: Due to above sepsis/gastritis. Monitor as we treat/support pt Code(s): D72.829 - ELEVATED WHITE BLOOD CELL COUNT, UNSPECIFIED (4) DMII (diabetes mellitus, type 2) Current Visit: Yes Status: Acute Assessment & Plan: Appetite is poor. SSI, hold Lantus for now. SSS, accucheck every 6 hrs. ADA diet (5) Essential (primary) hypertension Current Visit: Yes Status: Acute Assessment & Plan: BP is high. Reduced IVF rate from 200 to 100ml/hr. Resumed home meds, monitor a nd make adjustment as needed Code(s): I10 - ESSENTIAL (PRIMARY) HYPERTENSION (6) BPH (benign prostatic hyperplasia) Current Visit: Yes Status: Acute Assessment & Plan: Resume flomax 0.4mg daily Code(s): N40.0 - BENIGN PROSTATIC HYPERPLASIA WITHOUT LOWER URINRY TRACT SYMP (7) Hyperlipidemia Current Visit: Yes Status: Acute Assessment & Plan: Resume pravastatin Code(s): E78.5 - HYPERLIPIDEMIA, UNSPECIFIED Telemedicine Encounter - Telemedicine Encounter Telemedicine Encounter: The entirety of this encounter was performed via Telemedicine" The pt gave me verbal consent to have this telemedicine visit
[2022-09-14] MEDS: Zofran 4 MG/2 ML VIAL IV PRN (22:24)
[2022-09-14] MEDS: Hydromorphone 1 mg/ml Injection IV PRN (22:24)
[2022-09-15] MEDS: Zofran 4 MG/2 ML VIAL IV PRN ×2 (04:40→10:29)
[2022-09-15 05:46] LABS: Absolute Neutrophil Ct (ANC) 12.17 x10^3/uL (1.4-6.9); BASOPHIL % 0.1 % (0.0-0.4); Basophil (Absolute #) 0.02 x10^3/uL (0-0.4); Eosinophil (Absolute #) 0 x10^3/uL (0-0.5); Hematocrit 43.1 % (42-50); Hemoglobin 13.6 g/dL (12.5-18.0); IMMATURE GRAN # 0.05 x10^3u/L (0.00-0.03); IMMATURE GRAN % 0.3 % (0.00-0.4); Lymphocyte (Absolute #) 1.29 x10^3/uL (1.0-4.6); Lymphocytes % 8.9 % (24.0-44.0); Mean Cell Volume 90.4 fL (78-100); Mean Corpuscular Hemoglobin 28.5 pg (26-32); Mean Corpuscular Hgb Concent. 31.6 g/dL (32-36); Mean Platelet Volume 10.7 fL (7.5-11.0); Monocyte (Absolute #) 0.91 x10^3/uL (0.0-1.3); Monocytes % 6.3 % (0.0-12.0); Neutrophil % 84.4 % (36.0-66.0); Platelet Count 211 x10^3/uL (150-450); Red Blood Count 4.77 x10^6/uL (4.1-5.6); Red Cell Distribution Width 12.4 % (11.5-14.0); White Blood Count 14.4 x10^3/uL (4.0-10.5)
[2022-09-15 06:33] LABS: ALKALINE PHOSPHATASE 111 U/L (38-126); ANION GAP 13.8 MEQ/L (5-15); BLOOD UREA NITROGEN 17 mg/dL (9-20); CHLORIDE 102 mmol/L (98-107); Calcium 8.4 mg/dL (8.4-10.2); Carbon Dioxide 26 mmol/L (22-30); Creatinine 1 0.86 mg/dL (0.66-1.25); EST GLOMERULAR FILTRATION RATE > 60.0 ML/MIN; Glucose 180 mg/dL (74-106); Potassium 3.5 mmol/L (3.5-5.1); SGOT/AST 26 U/L (17-59); SGPT/ALT 20 U/L (0-50); SODIUM 138 mmol/L (137-145); Total Protein 7.2 g/dL (6.3-8.2)
[2022-09-15] MEDS: Lantus Insulin SQ SCH ×3 (07:45→21:17)
[2022-09-15] MEDS: Sodium Chloride 0.9% 1000 ML 1,000 ML IV SCH ×2 (09:13→19:18)
[2022-09-15] MEDS ORDERED: PRAVASTATIN SODIUM PO SCH (10:00)
[2022-09-15] MEDS: ZOCOR 20MG PO SCH (10:33)
[2022-09-15] MEDS: Lopressor 25MG Tab PO SCH (10:33)
[2022-09-15] MEDS: ECOTRIN 81 MG PO SCH (10:33)
[2022-09-15] MEDS: Flomax 0.4 MG PO SCH (10:33)
[2022-09-15] MEDS: Protonix 40MG Tablet PO SCH (10:33)
[2022-09-15] MEDS: Zestril 5 MG PO SCH (10:34)
[2022-09-15] MEDS: ENOXAPARIN SODIUM SQ SCH (10:34)
[2022-09-15] MEDS: Hydromorphone 1 mg/ml Injection IV PRN (10:44)
[2022-09-15] MEDS: MELATONIN PO PRN (21:16)
[2022-09-16] MEDS: Compazine 10 MG/2 ML IV PRN ×2 (01:12→08:56)
[2022-09-16] MEDS: Hydromorphone 1 mg/ml Injection IV PRN (01:19)
[2022-09-16] MEDS: Sodium Chloride 0.9% 1000 ML 1,000 ML IV SCH ×2 (04:55→14:53)
[2022-09-16 06:49] LABS: BASOPHIL % 0.4 % (0.0-0.4); Basophil (Absolute #) 0.04 x10^3/uL (0-0.4); Eosinophil % 0.3 % (0.00-5.0); Eosinophil (Absolute #) 0.03 x10^3/uL (0-0.5); Hematocrit 40.2 % (42-50); Hemoglobin 12.7 g/dL (12.5-18.0); IMMATURE GRAN # 0.02 x10^3u/L (0.00-0.03); IMMATURE GRAN % 0.2 % (0.00-0.4); Lymphocyte (Absolute #) 1.94 x10^3/uL (1.0-4.6); Lymphocytes % 20.6 % (24.0-44.0); Mean Cell Volume 90.3 fL (78-100); Mean Corpuscular Hemoglobin 28.5 pg (26-32); Mean Corpuscular Hgb Concent. 31.6 g/dL (32-36); Mean Platelet Volume 10.8 fL (7.5-11.0); Monocyte (Absolute #) 0.67 x10^3/uL (0.0-1.3); Monocytes % 7.1 % (0.0-12.0); Neutrophil % 71.4 % (36.0-66.0); Platelet Count 151 x10^3/uL (150-450); Red Blood Count 4.45 x10^6/uL (4.1-5.6); Red Cell Distribution Width 12.1 % (11.5-14.0); White Blood Count 9.4 x10^3/uL (4.0-10.5)
[2022-09-16] MEDS: ECOTRIN 81 MG PO SCH (10:10)
[2022-09-16] MEDS: ENOXAPARIN SODIUM SQ SCH (10:10)
[2022-09-16] MEDS: Protonix 40MG Tablet PO SCH (10:10)
[2022-09-16] MEDS: Flomax 0.4 MG PO SCH (10:10)
[2022-09-16] MEDS: ZOCOR 20MG PO SCH (10:11)
[2022-09-16] MEDS: Lopressor 25MG Tab PO SCH (10:11)
[2022-09-16] MEDS: Zestril 5 MG PO SCH (10:13)
[2022-09-16] MEDS: Lantus Insulin SQ SCH (10:13)
[2022-09-16] MEDS: MELATONIN PO PRN (21:31)
[2022-09-17] MEDS: Lantus Insulin SQ SCH ×2 (02:01→10:12)
[2022-09-17 05:16] LABS: Hemoglobin 13.4 g/dL (12.5-18.0); Mean Cell Volume 87.4 fL (78-100); Mean Corpuscular Hemoglobin 28.6 pg (26-32); Mean Corpuscular Hgb Concent. 32.7 g/dL (32-36); Mean Platelet Volume 11.1 fL (7.5-11.0); Platelet Count 152 x10^3/uL (150-450); Red Blood Count 4.69 x10^6/uL (4.1-5.6); Red Cell Distribution Width 12.3 % (11.5-14.0); White Blood Count 7.1 x10^3/uL (4.0-10.5)
[2022-09-17 05:28] LABS: ANION GAP 11.9 MEQ/L (5-15); BLOOD UREA NITROGEN 15 mg/dL (9-20); CHLORIDE 104 mmol/L (98-107); Calcium 8.5 mg/dL (8.4-10.2); Carbon Dioxide 25 mmol/L (22-30); Creatinine 1 0.87 mg/dL (0.66-1.25); EST GLOMERULAR FILTRATION RATE > 60.0 ML/MIN; Glucose 155 mg/dL (74-106); Potassium 3.4 mmol/L (3.5-5.1); SODIUM 138 mmol/L (137-145)
--- NOTE | 2022-09-17 05:50 | PCM.NOTE ---
Date and Time: 09/15/22 Subjective Assessment: Feels stronger today, wants to advance diet, no diarrhea since yesterday; no N/V - Review of Systems Eyes: No Symptoms Ears, Nose, & Throat: No Symptoms Respiratory: No Symptoms Cardiac: No Symptoms Abdominal/Gastrointestinal: No Symptoms Genitourinary Symptoms: No Symptoms Musculoskeletal: No Symptoms Objective Exam General Appearance: no apparent distress Neurologic Exam: alert, oriented x 3, cooperative Skin Exam: normal color Neck Exam: normal inspection Respiratory Exam: normal breath sounds Cardiovascular Exam: regular rate/rhythm, normal heart sounds Gastrointestinal/Abdomen Exam: soft OBJECTIVE DATA Vital Signs: Vital Signs - 24 hr Temp Pulse Resp BP Pulse Ox 09/17/22 04:00 97.2 F 65 20 186/87 96 09/16/22 23:38 97.8 F 82 18 154/73 97 09/16/22 20:00 97.7 F 69 20 163/78 96 09/16/22 16:00 97.5 F 67 17 156/78 95 09/16/22 12:00 97.5 F 69 17 176/77 95 09/16/22 08:00 97.5 F 67 18 171/77 94 L Pain Assessment - Last Documented Pain Intensity 3 Pain Scale Used 0-10 Pain Scale Intake and Output: Intake & Output 09/14/22 09/15/22 09/16/22 09/17/22 11:59 11:59 11:59 11:59 Intake Total 360 4226 2632 Output Total 1850 1200 2815 Balance -1490 3026 -183 Weight 83.7 kg Lab Results: Lab Results-Last 24 Hours 09/16/22 09/16/22 09/16/22 Range/Units 06:30 07:11 11:09 WBC 9.4 (4.0-10.5) x10^3/uL RBC 4.45 (4.1-5.6) x10^6/uL Hgb 12.7 (12.5-18.0) g/dL Hct 40.2 L (42-50) % MCV 90.3 (78-100) fL MCH 28.5 (26-32) pg MCHC 31.6 L (32-36) g/dL RDW 12.1 (11.5-14.0) % Plt Count 151 (150-450) x10^3/uL MPV 10.8 (7.5-11.0) fL Gran % 71.4 H (36.0-66.0) % Immature Gran % (Auto) 0.2 (0.00-0.4) % Nucleat RBC Rel Count 0.0 (0.00-0.1) % Eos # (Auto) 0.03 (0-0.5) x10^3/uL Immature Gran # (Auto) 0.02 (0.00-0.03) x10^3u/L Absolute Lymphs (auto) 1.94 (1.0-4.6) x10^3/uL Absolute Monos (auto) 0.67 (0.0-1.3) x10^3/uL Absolute Nucleated RBC 0.00 (0.00-0.01) x10^3u/L Lymphocytes % 20.6 L (24.0-44.0) % Monocytes % 7.1 (0.0-12.0) % Eosinophils % 0.3 (0.00-5.0) % Basophils % 0.4 (0.0-0.4) % Absolute Granulocytes 6.70 (1.4-6.9) x10^3/uL Basophils # 0.04 (0-0.4) x10^3/uL Sodium (137-145) mmol/L Potassium (3.5-5.1) mmol/L Chloride (98-107) mmol/L Carbon Dioxide (22-30) mmol/L Anion Gap (5-15) MEQ/L BUN (9-20) mg/dL Creatinine (0.66-1.25) mg/dL Estimated GFR ML/MIN Glucose (74-106) mg/dL POC Glucometer 153 H 183 H (74 to 106) mg/dL Calcium (8.4-10.2) mg/dL 09/16/22 09/16/22 09/17/22 Range/Units 16:23 21:39 04:30 WBC 7.1 (4.0-10.5) x10^3/uL RBC 4.69 (4.1-5.6) x10^6/uL Hgb 13.4 (12.5-18.0) g/dL Hct 41.0 L (42-50) % MCV 87.4 (78-100) fL MCH 28.6 (26-32) pg MCHC 32.7 (32-36) g/dL RDW 12.3 (11.5-14.0) % Plt Count 152 (150-450) x10^3/uL MPV 11.1 H (7.5-11.0) fL Gran % (36.0-66.0) % Immature Gran % (Auto) (0.00-0.4) % Nucleat RBC Rel Count (0.00-0.1) % Eos # (Auto) (0-0.5) x10^3/uL Immature Gran # (Auto) (0.00-0.03) x10^3u/L Absolute Lymphs (auto) (1.0-4.6) x10^3/uL Absolute Monos (auto) (0.0-1.3) x10^3/uL Absolute Nucleated RBC (0.00-0.01) x10^3u/L Lymphocytes % (24.0-44.0) % Monocytes % (0.0-12.0) % Eosinophils % (0.00-5.0) % Basophils % (0.0-0.4) % Absolute Granulocytes (1.4-6.9) x10^3/uL Basophils # (0-0.4) x10^3/uL Sodium (137-145) mmol/L Potassium (3.5-5.1) mmol/L Chloride (98-107) mmol/L Carbon Dioxide (22-30) mmol/L Anion Gap (5-15) MEQ/L BUN (9-20) mg/dL Creatinine (0.66-1.25) mg/dL Estimated GFR ML/MIN Glucose (74-106) mg/dL POC Glucometer 143 H 164 H (74 to 106) mg/dL Calcium (8.4-10.2) mg/dL 09/17/22 Range/Units 04:30 WBC (4.0-10.5) x10^3/uL RBC (4.1-5.6) x10^6/uL Hgb (12.5-18.0) g/dL Hct (42-50) % MCV (78-100) fL MCH (26-32) pg MCHC (32-36) g/dL RDW (11.5-14.0) % Plt Count (150-450) x10^3/uL MPV (7.5-11.0) fL Gran % (36.0-66.0) % Immature Gran % (Auto) (0.00-0.4) % Nucleat RBC Rel Count (0.00-0.1) % Eos # (Auto) (0-0.5) x10^3/uL Immature Gran # (Auto) (0.00-0.03) x10^3u/L Absolute Lymphs (auto) (1.0-4.6) x10^3/uL Absolute Monos (auto) (0.0-1.3) x10^3/uL Absolute Nucleated RBC (0.00-0.01) x10^3u/L Lymphocytes % (24.0-44.0) % Monocytes % (0.0-12.0) % Eosinophils % (0.00-5.0) % Basophils % (0.0-0.4) % Absolute Granulocytes (1.4-6.9) x10^3/uL Basophils # (0-0.4) x10^3/uL Sodium 138 (137-145) mmol/L Potassium 3.4 L (3.5-5.1) mmol/L Chloride 104 (98-107) mmol/L Carbon Dioxide 25 (22-30) mmol/L Anion Gap 11.9 (5-15) MEQ/L BUN 15 (9-20) mg/dL Creatinine 0.87 (0.66-1.25) mg/dL Estimated GFR > 60.0 ML/MIN Glucose 155 H (74-106) mg/dL POC Glucometer (74 to 106) mg/dL Calcium 8.5 (8.4-10.2) mg/dL Assessment/Plan (1) Diarrhea Current Visit: No Status: Acute Assessment & Plan: Assessment/Plan (1) Sepsis Current Visit: Yes Status: Acute Assessment & Plan: WBC 11.5, tachycardia, lactic acid 3.1. Viral gastroenteritis as the source. ER gave him 3Ls total of NS. He is getting now 100ml/hr. Viral work-up negative thus far. BC ordered. Supportive measures. Reepat LA improved; on maintenance fluids (2) Gastroenteritis Current Visit: Yes Status: Acute Assessment & Plan: Likely viral in nature - thus supportive measures with IVF and symptomatic relief. IVF given in ER in form of boluses, and now on 100ml/hr of NS Code(s): K52.9 - NONINFECTIVE GASTROENTERITIS AND COLITIS, UNSPECIFIED (3) Leukocytosis Current Visit: Yes Status: Acute Assessment & Plan: Due to above sepsis/gastritis. Monitor as we treat/support pt Code(s): D72.829 - ELEVATED WHITE BLOOD CELL COUNT, UNSPECIFIED (4) DMII (diabetes mellitus, type 2) Current Visit: Yes Status: Acute Assessment & Plan: Appetite is poor. SSI, hold Lantus for now. SSS, accucheck every 6 hrs. ADA diet; advancing today (5) Essential (primary) hypertension Current Visit: Yes Status: Acute Assessment & Plan: BP is high. Reduced IVF rate from 200 to 100ml/hr. Resumed home meds, monitor and make adjustment as needed Code(s): I10 - ESSENTIAL (PRIMARY) HYPERTENSION (6) BPH (benign prostatic hyperplasia) Current Visit: Yes Status: Acute Assessment & Plan: Resume flomax 0.4mg daily Code(s): N40.0 - BENIGN PROSTATIC HYPERPLASIA WITHOUT LOWER URINRY TRACT SYMP (7) Hyperlipidemia Current Visit: Yes Status: Acute Assessment & Plan: Resume pravastatin Code(s): E78.5 - HYPERLIPIDEMIA, UNSPECIFIED Code(s): R19.7 - DIARRHEA, UNSPECIFIED Telemedicine Encounter - Telemedicine Encounter Telemedicine Encounter: The entirety of this encounter was performed via Telemedicine"
--- NOTE | 2022-09-17 05:54 | PCM.NOTE ---
Date and Time: 09/16/22 1230 Subjective Assessment: Sleeping; diet was advanced, but patient ate heavy foods such as cheesy eggs. felt nauseous again. Will not discharge today - Review of Systems Eyes: No Symptoms Ears, Nose, & Throat: No Symptoms Respiratory: No Symptoms Cardiac: No Symptoms Abdominal/Gastrointestinal: Abdominal Pain, Nausea Genitourinary Symptoms: No Symptoms Musculoskeletal: No Symptoms Objective Exam General Appearance: mild distress Neurologic Exam: alert, oriented x 3 Skin Exam: normal color Neck Exam: normal inspection Respiratory Exam: normal breath sounds Cardiovascular Exam: regular rate/rhythm, normal heart sounds OBJECTIVE DATA Vital Signs: Vital Signs - 24 hr Temp Pulse Resp BP Pulse Ox 09/17/22 04:00 97.2 F 65 20 186/87 96 09/16/22 23:38 97.8 F 82 18 154/73 97 09/16/22 20:00 97.7 F 69 20 163/78 96 09/16/22 16:00 97.5 F 67 17 156/78 95 09/16/22 12:00 97.5 F 69 17 176/77 95 09/16/22 08:00 97.5 F 67 18 171/77 94 L Pain Assessment - Last Documented Pain Intensity 3 Pain Scale Used 0-10 Pain Scale Intake and Output: Intake & Output 09/14/22 09/15/22 09/16/22 09/17/22 11:59 11:59 11:59 11:59 Intake Total 360 4226 2632 Output Total 1850 1200 2815 Balance -1490 3026 -183 Weight 83.7 kg Lab Results: Lab Results-Last 24 Hours 09/16/22 09/16/22 09/16/22 Range/Units 06:30 07:11 11:09 WBC 9.4 (4.0-10.5) x10^3/uL RBC 4.45 (4.1-5.6) x10^6/uL Hgb 12.7 (12.5-18.0) g/dL Hct 40.2 L (42-50) % MCV 90.3 (78-100) fL MCH 28.5 (26-32) pg MCHC 31.6 L (32-36) g/dL RDW 12.1 (11.5-14.0) % Plt Count 151 (150-450) x10^3/uL MPV 10.8 (7.5-11.0) fL Gran % 71.4 H (36.0-66.0) % Immature Gran % (Auto) 0.2 (0.00-0.4) % Nucleat RBC Rel Count 0.0 (0.00-0.1) % Eos # (Auto) 0.03 (0-0.5) x10^3/uL Immature Gran # (Auto) 0.02 (0.00-0.03) x10^3u/L Absolute Lymphs (auto) 1.94 (1.0-4.6) x10^3/uL Absolute Monos (auto) 0.67 (0.0-1.3) x10^3/uL Absolute Nucleated RBC 0.00 (0.00-0.01) x10^3u/L Lymphocytes % 20.6 L (24.0-44.0) % Monocytes % 7.1 (0.0-12.0) % Eosinophils % 0.3 (0.00-5.0) % Basophils % 0.4 (0.0-0.4) % Absolute Granulocytes 6.70 (1.4-6.9) x10^3/uL Basophils # 0.04 (0-0.4) x10^3/uL Sodium (137-145) mmol/L Potassium (3.5-5.1) mmol/L Chloride (98-107) mmol/L Carbon Dioxide (22-30) mmol/L Anion Gap (5-15) MEQ/L BUN (9-20) mg/dL Creatinine (0.66-1.25) mg/dL Estimated GFR ML/MIN Glucose (74-106) mg/dL POC Glucometer 153 H 183 H (74 to 106) mg/dL Calcium (8.4-10.2) mg/dL 09/16/22 09/16/22 09/17/22 Range/Units 16:23 21:39 04:30 WBC 7.1 (4.0-10.5) x10^3/uL RBC 4.69 (4.1-5.6) x10^6/uL Hgb 13.4 (12.5-18.0) g/dL Hct 41.0 L (42-50) % MCV 87.4 (78-100) fL MCH 28.6 (26-32) pg MCHC 32.7 (32-36) g/dL RDW 12.3 (11.5-14.0) % Plt Count 152 (150-450) x10^3/uL MPV 11.1 H (7.5-11.0) fL Gran % (36.0-66.0) % Immature Gran % (Auto) (0.00-0.4) % Nucleat RBC Rel Count (0.00-0.1) % Eos # (Auto) (0-0.5) x10^3/uL Immature Gran # (Auto) (0.00-0.03) x10^3u/L Absolute Lymphs (auto) (1.0-4.6) x10^3/uL Absolute Monos (auto) (0.0-1.3) x10^3/uL Absolute Nucleated RBC (0.00-0.01) x10^3u/L Lymphocytes % (24.0-44.0) % Monocytes % (0.0-12.0) % Eosinophils % (0.00-5.0) % Basophils % (0.0-0.4) % Absolute Granulocytes (1.4-6.9) x10^3/uL Basophils # (0-0.4) x10^3/uL Sodium (137-145) mmol/L Potassium (3.5-5.1) mmol/L Chloride (98-107) mmol/L Carbon Dioxide (22-30) mmol/L Anion Gap (5-15) MEQ/L BUN (9-20) mg/dL Creatinine (0.66-1.25) mg/dL Estimated GFR ML/MIN Glucose (74-106) mg/dL POC Glucometer 143 H 164 H (74 to 106) mg/dL Calcium (8.4-10.2) mg/dL 09/17/22 Range/Units 04:30 WBC (4.0-10.5) x10^3/uL RBC (4.1-5.6) x10^6/uL Hgb (12.5-18.0) g/dL Hct (42-50) % MCV (78-100) fL MCH (26-32) pg MCHC (32-36) g/dL RDW (11.5-14.0) % Plt Count (150-450) x10^3/uL MPV (7.5-11.0) fL Gran % (36.0-66.0) % Immature Gran % (Auto) (0.00-0.4) % Nucleat RBC Rel Count (0.00-0.1) % Eos # (Auto) (0-0.5) x10^3/uL Immature Gran # (Auto) (0.00-0.03) x10^3u/L Absolute Lymphs (auto) (1.0-4.6) x10^3/uL Absolute Monos (auto) (0.0-1.3) x10^3/uL Absolute Nucleated RBC (0.00-0.01) x10^3u/L Lymphocytes % (24.0-44.0) % Monocytes % (0.0-12.0) % Eosinophils % (0.00-5.0) % Basophils % (0.0-0.4) % Absolute Granulocytes (1.4-6.9) x10^3/uL Basophils # (0-0.4) x10^3/uL Sodium 138 (137-145) mmol/L Potassium 3.4 L (3.5-5.1) mmol/L Chloride 104 (98-107) mmol/L Carbon Dioxide 25 (22-30) mmol/L Anion Gap 11.9 (5-15) MEQ/L BUN 15 (9-20) mg/dL Creatinine 0.87 (0.66-1.25) mg/dL Estimated GFR > 60.0 ML/MIN Glucose 155 H (74-106) mg/dL POC Glucometer (74 to 106) mg/dL Calcium 8.5 (8.4-10.2) mg/dL Assessment/Plan (1) Diarrhea Current Visit: No Status: Acute Assessment & Plan: (1) Sepsis Current Visit: Yes Status: Acute Assessment & Plan: WBC 11.5, tachycardia, lactic acid 3.1. Viral gastroenteritis as the source. ER gave him 3Ls total of NS. He is getting now 100ml/hr. Viral work-up negative thus far. BC ordered. Supportive measures. Reepat LA improved; on maintenance fluids (2) Gastroenteritis Current Visit: Yes Status: Acute Assessment & Plan: Likely viral in nature - thus supportive measures with IVF and symptomatic relief. IVF given in ER in form of boluses, and now on 100ml/hr of NS - tried to advance diet; but patient did not tolerate Code(s): K52.9 - NONINFECTIVE GASTROENTERITIS AND COLITIS, UNSPECIFIED (3) Leukocytosis Current Visit: Yes Status: Acute Assessment & Plan: Due to above sepsis/gastritis. Monitor as we treat/support pt Code(s): D72.829 - ELEVATED WHITE BLOOD CELL COUNT, UNSPECIFIED (4) DMII (diabetes mellitus, type 2) Current Visit: Yes Status: Acute Assessment & Plan: Appetite is poor. SSI, hold Lantus for now. SSS, accucheck every 6 hrs. ADA diet; advancing today (5) Essential (primary) hypertension Current Visit: Yes Status: Acute Assessment & Plan: BP is high. Reduced IVF rate from 200 to 100ml/hr. Resumed home meds, monitor and make adjustment as needed Code(s): I10 - ESSENTIAL (PRIMARY) HYPERTENSION (6) BPH (benign prostatic hyperplasia) Current Visit: Yes Status: Acute Assessment & Plan: Resume flomax 0.4mg daily Code(s): N40.0 - BENIGN PROSTATIC HYPERPLASIA WITHOUT LOWER URINRY TRACT SYMP (7) Hyperlipidemia Current Visit: Yes Status: Acute Assessment & Plan: Resume pravastatin Code(s): E78.5 - HYPERLIPIDEMIA, UNSPECIFIED Code(s): R19.7 - DIARRHEA, UNSPECIFIED Code(s): R19.7 - DIARRHEA, UNSPECIFIED Telemedicine Encounter - Telemedicine Encounter Telemedicine Encounter: The entirety of this encounter was performed via Telemedicine"
[2022-09-17 07:27] VITALS: RESP 16
[2022-09-17] MEDS: ZOCOR 20MG PO SCH (10:10)
[2022-09-17] MEDS: ECOTRIN 81 MG PO SCH (10:10)
[2022-09-17] MEDS: Flomax 0.4 MG PO SCH (10:10)
[2022-09-17] MEDS: Protonix 40MG Tablet PO SCH (10:10)
[2022-09-17] MEDS: Lopressor 25MG Tab PO SCH (10:11)
[2022-09-17] MEDS: Zestril 5 MG PO SCH (10:11)
[2022-09-17] MEDS: ENOXAPARIN SODIUM SQ SCH (10:12)
[2022-09-17 11:37] VITALS: BP 139/73; PULSE 65; TEMP 97.1; O2SAT 94
--- NOTE | 2022-09-17 13:36 | PCM.DS ---
Discharge Summary Date of Admission: 09/14/22 17:00 Date of Discharge: 09/17/2022 Admitting Physician: JES FARRAR MD Primary Care Provider: GRZEGORZ JOHNSON Allergies Allergies Iodinated Contrast Media Allergy (Verified 05/16/22 12:42) Hospital Summary - Hospital Course Hospital Course: 66-year-old man with history of DM2, HTN, BPH, who presented with onset of nausea, vomiting, and cramping abdominal pain. He was found to have viral gastroenteritis, initially with mild elevated lactate. Improved with IV fluids, and slowly was able to tolerate increasing amounts of p.o. diet. By day of discharge, he had a bowel movement that was fairly formed, with no further abdominal pain. He was tolerating a bland diet without nausea or abdominal pain. He was discharged home, encouraged to continue to eat bland food for the next few days, and follow with PCP in 1 to 2 weeks. Greater than 30 minutes were spent arranging discharge. - Vitals & Intake/Output Vital Signs: Vital Signs Temperature 97.1 F 09/17/22 11:36 Pulse Rate 65 09/17/22 11:36 Respiratory Rate 16 09/17/22 11:36 Blood Pressure 139/73 09/17/22 11:36 O2 Sat by Pulse Oximetry 94 L 09/17/22 11:36 Intake & Output: Intake & Output 09/15/22 09/16/22 09/17/22 09/18/22 11:59 11:59 11:59 11:59 Intake Total 360 4226 3112 120 Output Total 1850 1200 2815 Balance -1490 3026 297 120 Weight 83.7 kg - Lab Result Diagrams: 09/17/22 04:30 09/17/22 04:30 Lab Results-Last 24 Hrs: Lab Results-Last 24 Hours 09/16/22 09/16/22 09/17/22 Range/Units 16:23 21:39 04:30 WBC 7.1 (4.0-10.5) x10^3/uL RBC 4.69 (4.1-5.6) x10^6/uL Hgb 13.4 (12.5-18.0) g/dL Hct 41.0 L (42-50) % MCV 87.4 (78-100) fL MCH 28.6 (26-32) pg MCHC 32.7 (32-36) g/dL RDW 12.3 (11.5-14.0) % Plt Count 152 (150-450) x10^3/uL MPV 11.1 H (7.5-11.0) fL Sodium (137-145) mmol/L Potassium (3.5-5.1) mmol/L Chloride (98-107) mmol/L Carbon Dioxide (22-30) mmol/L Anion Gap (5-15) MEQ/L BUN (9-20) mg/dL Creatinine (0.66-1.25) mg/dL Estimated GFR ML/MIN Glucose (74-106) mg/dL POC Glucometer 143 H 164 H (74 to 106) mg/dL Calcium (8.4-10.2) mg/dL 09/17/22 09/17/22 09/17/22 Range/Units 04:30 06:56 11:15 WBC (4.0-10.5) x10^3/uL RBC (4.1-5.6) x10^6/uL Hgb (12.5-18.0) g/dL Hct (42-50) % MCV (78-100) fL MCH (26-32) pg MCHC (32-36) g/dL RDW (11.5-14.0) % Plt Count (150-450) x10^3/uL MPV (7.5-11.0) fL Sodium 138 (137-145) mmol/L Potassium 3.4 L (3.5-5.1) mmol/L Chloride 104 (98-107) mmol/L Carbon Dioxide 25 (22-30) mmol/L Anion Gap 11.9 (5-15) MEQ/L BUN 15 (9-20) mg/dL Creatinine 0.87 (0.66-1.25) mg/dL Estimated GFR > 60.0 ML/MIN Glucose 155 H (74-106) mg/dL POC Glucometer 158 H 241 H (74 to 106) mg/dL Calcium 8.5 (8.4-10.2) mg/dL Micro Results-Entire Visit: Accuchecks Date 09/17/22 Date 09/17/22 Date 09/16/22 Date 09/16/22 Time 11:36 Time 07:26 Time 16:29 - Radiology Exams Ordered Rad Exams-Entire Visit: CT abdomen pelvis chronic findings including benign right lung base noncalcified nodule, enlarged prostate gland, nonobstructing bilateral renal calculus, left adrenal adenoma, fatty left inguinal hernia, arterial sclerotic disease, and chronic bony findings. No new or acute findings. - Procedures and Test Procedures and Tests throughout Hospitalization: Therapy Orders & Screens 09/14/22 17:27 ST Screen per Nursing Assess ONCE Comment: Protocol Order Physician Instructions: Greater than [address] Admission Screening Reason For Exam: Triggered on Admission Diagnosis: Gastroenteritis CVA/Dyshpagia/Aphasia: No Cognitive Deficits: No Dehydration/Nutrition Deficit: Yes Reflux: No Oral-Motor Difficulties: No Pneumonia: No Skilled Nursing Resident: No Total Points: 5 Discharge Exam Comments: GENERAL: Sitting up in bed in no acute distress NEURO: Alert, oriented x3, normal affect CV: Regular rate and rhythm, no murmurs, no edema PULM: Clear to auscultation bilaterally, no work of breathing ABD: Soft, nontender, nondistended Final Diagnosis/Problem List - Final Discharge Diagnosis/Problem (1) Gastroenteritis Current Visit: Yes Status: Acute Code(s): K52.9 - NONINFECTIVE GASTROENTERITIS AND COLITIS, UNSPECIFIED Telemedicine Encounter - Telemedicine Encounter Telemedicine Encounter: The entirety of this encounter was performed via Telemedicine" - Discharge Discharge Date: 09/17/22 Disposition: Home, Self-Care Condition: Good Prescriptions: Continue lisinopriL [Lisinopril] 5 mg PO DAILY Pravastatin Sodium 40 mg PO DAILY Insulin Glargine [Lantus Insulin] 25 units SQ BID Tamsulosin HCl 0.4 mg [Flomax 0.4 MG] 0.4 mg PO DAILY #30 cap Aspirin EC 81 mg [Ecotrin 81 mg] 81 mg PO DAILY Metoprolol Tartrate 25 mg [Lopressor 25MG Tab] 25 mg PO DAILY Follow up with: GRZEGORZ JOHNSON MD [Primary Care Provider] - 09/25/22 1:30 pm
== END 2022-09-17 14:04 | disposition home or self-care (01) ==
LOC: ED 13:20 → MED SURG 17:00
PROVIDERS: ADMIT Internal Medicine; ATTEND Internal Medicine
DX: K52.9 Noninfective gastroenteritis and colitis, unspecified (principal); E86.0 Dehydration; E11.9 Type 2 diabetes mellitus without complications; I10 Essential (primary) hypertension; E78.5 Hyperlipidemia, unspecified; N40.0 Benign prostatic hyperplasia without lower urinary tract symptoms; R00.0 Tachycardia, unspecified; A41.9 Sepsis, unspecified organism; D72.829 Elevated white blood cell count, unspecified; Z79.899 Other long term (current) drug therapy; Z20.828 Contact with and (suspected) exposure to other viral communicable diseases
CPT/HCPCS: 0241U; 36000; 36415; 71045; 74176; 80048; 80053; 81001; 82150; 82805; 82947; 83036; 83605; 83690; 84484; 85025; 85027; 85610; 87651; 93005; 96360; 96361; 96374; 96375; 96376; 99285; G0378; J1170; J1650; J1815; J2405; Q3014; A9270-GY

== ENCOUNTER 2024-02-09 18:33 | Emergency (ER) | payer MEDICARE, OTHER ==
[2024-02-09] MEDS ORDERED: Zofran 4 MG/2 ML VIAL ONE (19:33)
[2024-02-09] MEDS ORDERED: Sodium Chloride 0.9% 1000 ML 1,000 ML ONE ×2 (19:33→20:39)
[2024-02-09 19:34] VITALS: TEMP 97.8
[2024-02-09] MEDS: Sodium Chloride 0.9% 1000 ML 1,000 ML IV STA ×2 (19:36→20:40)
[2024-02-09] MEDS: Zofran 4 MG/2 ML VIAL IV ONE (19:36)
--- NOTE | 2024-02-09 20:22 | ERPHSYRPT ---
- History of Present Illness Time Seen by Provider: 02/09/24 20:21 Historian: patient Exam Limitations: no limitations Patient Subjective Stated Complaint: . Triage Nursing Assessment: . Physician History: The patient presents with vomiting, diarrhea, stomach cramps, vertigo, and nausea. Experiencing persistent vomiting, severe diarrhea, stomach cramps, vertigo, and nausea since this morning. Unable to keep any food or drink down since yesterday, as any intake either 'goes straight through' or is vomited back up. No medication taken for nausea or diarrhea. Attempted to manage symptoms by consuming ice chips and small amounts of liquid, but these efforts have not been successful in alleviating symptoms. Timing/Duration: yesterday Activities at Onset: rest Quality: cramping Abdominal Pain Onset Location: generalized abdomen Pain Radiation: no radiation Severity of Pain-Max: moderate Severity of Pain-Current: moderate Modifying Factors: Improves With: nothing. Worsens With: eating, vomiting Associated Symptoms: diarrhea, loss of appetite, nausea, vomiting, No back, No chest pain, No fever/chills, No neck pain, No shortness of breath Previous symptoms: no prior history Allergies/Adverse Reactions: Iodinated Contrast Media Allergy (Verified 05/16/22 12:42) Home Medications: Insulin Glargine [Lantus Insulin] 30 units SQ BID 01/15/20 [History] Pravastatin Sodium 40 mg PO DAILY 01/15/20 [History] lisinopriL [Lisinopril] 5 mg PO DAILY 01/15/20 [History] Aspirin EC 81 mg [Ecotrin 81 mg] 81 mg PO DAILY 04/30/22 [History] Metoprolol Tartrate 25 mg [Lopressor 25MG Tab] 25 mg PO DAILY 04/30/22 [History] Hx Tetanus, Diphtheria Vaccination/Date Given: Yes Hx Influenza Vaccination/Date Given: No Hx Pneumococcal Vaccination/Date Given: No Travel Risk - International Travel Have you traveled outside of the country in past 3 weeks: No - Emerging Infectious Disease Are you exhibiting symptoms associated with any current EIDs: Yes Symptoms: Headaches/Body Aches/, Vomitting Comment: home test positive for covid - Review of Systems All Other Systems: Reviewed and Negative - Past Medical History Pertinent Past Medical History: Yes Neurological History: No Pertinent History ENT History: Cataracts, Other Cardiac History: High Cholesterol, Hypertension, Myocardial Infarction ([place]) Respiratory History: Bronchitis Endocrine Medical History: Diabetes Type II Musculoskeletal History: Arthritis, Fractures GI Medical History: GERD History: No Pertinent History Psycho-Social History: No Pertinent History Male Reproductive Disorders: Prostate Problems Other Medical History: had cataract surgery and new lenses put in both eyes in 03/2022 - Past Surgical History Past Surgical History: Yes Neuro Surgical History: No Pertinent History Cardiac: CABG, Cardiac Catheterization Respiratory: No Pertinent History Gastrointestinal: No Pertinent History Genitourinary: No Pertinent History Musculoskeletal: Orthopedic Surgery Male Surgical History: No Pertinent History Other Surgical History: R shoulder 2020 rotator cuff/bicep torn in two Significant Family History: no pertinent family hx - Social History Smoking Status: Smoker, status unknown Exposure to second hand smoke: Yes Drug Use: none Patient Lives Alone: No - Social Determinants of Health Will the patient participate in the screening: Yes Do you worry about a steady place to live?: No Do you have any problems with any of the following?: No known problems In the past 12 months,have you had to go without utilities?: No Transportation Issues: No Has anyone in your support network made you feel unsafe?: No Have you or anyone in your house had to go without enough: No - Nursing Vital Signs Nursing Vital Signs: Initial Vital Signs Temperature 97.8 F 02/09/24 19:20 Pulse Rate 78 02/09/24 19:20 Respiratory Rate 18 02/09/24 19:20 Blood Pressure 220/99 02/09/24 19:20 O2 Sat by Pulse Oximetry 98 02/09/24 19:20 Pain Scale Pain Intensity 3 - Physical Exam General Appearance: no apparent distress Eye Exam: eyes nml inspection Ears, Nose, Throat Exam: normal ENT inspection Neck Exam: normal inspection, non-tender, supple, full range of motion Respiratory Exam: airway intact, No respiratory distress Cardiovascular Exam: regular rate/rhythm, capillary refill <2 sec, No edema Gastrointestinal/Abdomen Exam: soft, normal bowel sounds, No tenderness, No distention, No mass, No guarding, No rebound Neurologic Exam: alert, oriented x 3, cooperative Skin Exam: normal color, warm, dry, No rash SpO2 Interpretation: normal SpO2: 99 O2 Delivery: Room Air - Course Nursing assessment & vital signs reviewed: Yes EKG Interpreted by Me: RATE (88), Sinus Rhythm, NORMAL AXIS, Other (OR 273, no ST/T wave changes) Ordered Tests: Medication Summary Discontinued Medications Generic Name Dose Route Start Last Admin Trade Name Asad PRN Reason Stop Dose Admin Droperidol 1.25 mg 02/09/24 20:38 02/09/24 21:11 Droperidol 5 Mg/2 Ml Vial IV 02/09/24 20:39 1.25 mg STAT ONE Administration Droperidol Confirm 02/09/24 20:39 Droperidol 5 Mg/2 Ml Vial Administered 02/09/24 20:40 Dose 5 mg .ROUTE .STK-MED ONE Sodium Chloride 1,000 mls @ 999 mls/hr 02/09/24 19:34 02/09/24 20:38 Sodium Chloride 0.9% 1000 Ml IV 02/09/24 20:34 Infused .Q1H1M STA Infusion Sodium Chloride Confirm 02/09/24 19:33 Sodium Chloride 0.9% 1000 Ml Administered 02/09/24 19:34 Dose 1,000 mls @ ud .ROUTE .STK-MED ONE Sodium Chloride 1,000 mls @ 999 mls/hr 02/09/24 20:22 02/09/24 21:43 Sodium Chloride 0.9% 1000 Ml IV 02/09/24 21:22 Infused .Q1H1M STA Infusion Promethazine HCl 25 mg/ Sodium 101 mls @ 200 mls/hr 02/09/24 20:24 02/09/24 20:38 Chloride IV 02/09/24 20:54 Not Given STAT ONE Sodium Chloride Confirm 02/09/24 20:39 Sodium Chloride 0.9% 1000 Ml Administered 02/09/24 20:40 Dose 1,000 mls @ ud .ROUTE .STK-MED ONE Insulin Human Lispro 10 unit 02/09/24 20:56 02/09/24 21:01 Insulin Lispro 1 Unit SQ 02/09/24 20:57 10 unit STAT ONE Administration Insulin Human Lispro Confirm 02/09/24 20:59 Insulin Lispro 1 Unit Administered 02/09/24 21:00 Dose 10 unit .ROUTE .STK-MED ONE Ondansetron HCl 4 mg 02/09/24 19:34 02/09/24 19:36 Ondansetron Hcl 4 Mg/2 Ml Vial IV 02/09/24 19:35 4 mg STAT ONE Administration Ondansetron HCl Confirm 02/09/24 19:33 Ondansetron Hcl 4 Mg/2 Ml Vial Administered 02/09/24 19:34 Dose 4 mg .ROUTE .STK-MED ONE Lab/Rad Data: Laboratory Result Diagrams 02/09/24 20:36 02/09/24 20:36 Laboratory Results 02/09/24 02/09/24 02/09/24 Range/Units 22:36 22:25 21:50 WBC (4.23-9.07) x10^3/uL RBC (4.63-6.08) x10^6/uL Hgb (13.7-17.5) g/dL Hct (40.1-51.0) % MCV (79.0-92.2) fL MCH (25.7-32.2) pg MCHC (32.3-36.5) g/dL RDW (11.6-14.4) % Plt Count (163-337) x10^3/uL MPV (9.4-12.4) fL Gran % (34.0-67.9) % Immature Gran % (Auto) (0.001-0.429) % Nucleat RBC Rel Count (0.00-0.2) % Eos # (Auto) (0.04-0.54) x10^3/uL Immature Gran # (Auto) (0.001-0.031) x10^3u/L Absolute Lymphs (auto) (1.32-3.57) x10^3/uL Absolute Monos (auto) (0.30-0.82) x10^3/uL Absolute Nucleated RBC (0.00-0.012) x10^3u/L Lymphocytes % (21.8-53.1) % Monocytes % (5.3-12.2) % Eosinophils % (0.8-7.0) % Basophils % (0.2-1.2) % Absolute Granulocytes (1.78-5.38) x10^3/uL Basophils # (0.01-0.08) x10^3/uL pO2/FiO2 Ratio % VBG pH (7.32-7.42) VBG pCO2 at Pat Temp (42-55) mm/Hg VBG pO2 at Pat Temp (25-40) mm/Hg VBG HCO3 (22-28) meq/L VBG O2 Sat ([place]) (95-100) VBG Base Excess (-2.0-2.0) VBG Hemoglobin VBG Carboxyhemoglobin (0.0-6.9) % T HGB POC Potassium (3.5-5.1) Sodium (135-145) mmol/L Potassium (3.5-5.1) mmol/L Chloride (98-107) mmol/L Carbon Dioxide (22-30) mmol/L Anion Gap (5-15) MEQ/L BUN (9-20) mg/dL Creatinine (0.66-1.25) mg/dL Estimated GFR ML/MIN Glucose 237 H (74-106) mg/dL POC Glucometer 240 H (74 to 106) mg/dL Hemoglobin A1c (4.5-6.0) % Lactic Acid 5.4 H (0.4-2.0) Calcium (8.4-10.2) mg/dL Total Bilirubin (0.2-1.3) mg/dL AST (17-59) U/L ALT (0-50) U/L Alkaline Phosphatase (38-126) U/L Troponin I (0.000-0.033) ng/mL Serum Total Protein (6.3-8.2) g/dL Albumin (3.5-5.0) g/dL Lipase (23-300) U/L Influenza Type A Ag (NEGATIVE) Influenza Type B Ag (NEGATIVE) RSV (PCR) (NEGATIVE) SARS-CoV-2 (PCR) (NEGATIVE) 02/09/24 02/09/24 02/09/24 Range/Units 21:00 20:36 20:36 WBC (4.23-9.07) x10^3/uL RBC (4.63-6.08) x10^6/uL Hgb (13.7-17.5) g/dL Hct (40.1-51.0) % MCV (79.0-92.2) fL MCH (25.7-32.2) pg MCHC (32.3-36.5) g/dL RDW (11.6-14.4) % Plt Count (163-337) x10^3/uL MPV (9.4-12.4) fL Gran % (34.0-67.9) % Immature Gran % (Auto) (0.001-0.429) % Nucleat RBC Rel Count (0.00-0.2) % Eos # (Auto) (0.04-0.54) x10^3/uL Immature Gran # (Auto) (0.001-0.031) x10^3u/L Absolute Lymphs (auto) (1.32-3.57) x10^3/uL Absolute Monos (auto) (0.30-0.82) x10^3/uL Absolute Nucleated RBC (0.00-0.012) x10^3u/L Lymphocytes % (21.8-53.1) % Monocytes % (5.3-12.2) % Eosinophils % (0.8-7.0) % Basophils % (0.2-1.2) % Absolute Granulocytes (1.78-5.38) x10^3/uL Basophils # (0.01-0.08) x10^3/uL pO2/FiO2 Ratio % VBG pH (7.32-7.42) VBG pCO2 at Pat Temp (42-55) mm/Hg VBG pO2 at Pat Temp (25-40) mm/Hg VBG HCO3 (22-28) meq/L VBG O2 Sat ([place]) (95-100) VBG Base Excess (-2.0-2.0) VBG Hemoglobin VBG Carboxyhemoglobin (0.0-6.9) % T HGB POC Potassium (3.5-5.1) Sodium 142 (135-145) mmol/L Potassium 3.9 (3.5-5.1) mmol/L Chloride 101 (98-107) mmol/L Carbon Dioxide 23 (22-30) mmol/L Anion Gap 21.9 H (5-15) MEQ/L BUN 20 (9-20) mg/dL Creatinine 1.06 (0.66-1.25) mg/dL Estimated GFR 76.0 ML/MIN Glucose 296 H (74-106) mg/dL POC Glucometer (74 to 106) mg/dL Hemoglobin A1c (4.5-6.0) % Lactic Acid (0.4-2.0) Calcium 10.3 H (8.4-10.2) mg/dL Total Bilirubin 0.90 (0.2-1.3) mg/dL AST 54 (17-59) U/L ALT 53 H (0-50) U/L Alkaline Phosphatase 157 H (38-126) U/L Troponin I 0.021 (0.000-0.033) ng/mL Serum Total Protein 8.0 (6.3-8.2) g/dL Albumin 5.1 H (3.5-5.0) g/dL Lipase 60 (23-300) U/L Influenza Type A Ag NEGATIVE (NEGATIVE) Influenza Type B Ag NEGATIVE (NEGATIVE) RSV (PCR) NEGATIVE (NEGATIVE) SARS-CoV-2 (PCR) NEGATIVE (NEGATIVE) 02/09/24 02/09/24 02/09/24 Range/Units 20:36 20:33 20:25 WBC 14.6 H (4.23-9.07) x10^3/uL RBC 5.21 (4.63-6.08) x10^6/uL Hgb 15.1 (13.7-17.5) g/dL Hct 44.8 (40.1-51.0) % MCV 86.0 (79.0-92.2) fL MCH 29.0 (25.7-32.2) pg MCHC 33.7 (32.3-36.5) g/dL RDW 12.5 (11.6-14.4) % Plt Count 227 (163-337) x10^3/uL MPV 11.6 (9.4-12.4) fL Gran % 91.5 H (34.0-67.9) % Immature Gran % (Auto) 0.5 H (0.001-0.429) % Nucleat RBC Rel Count 0.0 (0.00-0.2) % Eos # (Auto) 0 L (0.04-0.54) x10^3/uL Immature Gran # (Auto) 0.08 H (0.001-0.031) x10^3u/L Absolute Lymphs (auto) 0.78 L (1.32-3.57) x10^3/uL Absolute Monos (auto) 0.38 (0.30-0.82) x10^3/uL Absolute Nucleated RBC 0.00 (0.00-0.012) x10^3u/L Lymphocytes % 5.3 L (21.8-53.1) % Monocytes % 2.6 L (5.3-12.2) % Eosinophils % 0.0 L (0.8-7.0) % Basophils % 0.1 L (0.2-1.2) % Absolute Granulocytes 13.33 H (1.78-5.38) x10^3/uL Basophils # 0.02 (0.01-0.08) x10^3/uL pO2/FiO2 Ratio 21.0 % VBG pH 7.42 (7.32-7.42) VBG pCO2 at Pat Temp 41 L (42-55) mm/Hg VBG pO2 at Pat Temp 82 H (25-40) mm/Hg VBG HCO3 26.6 (22-28) meq/L VBG O2 Sat ([place]) 97.3 (95-100) VBG Base Excess 1.9 (-2.0-2.0) VBG Hemoglobin 16.1 VBG Carboxyhemoglobin 4.3 (0.0-6.9) % T HGB POC Potassium 4.2 (3.5-5.1) Sodium (135-145) mmol/L Potassium (3.5-5.1) mmol/L Chloride (98-107) mmol/L Carbon Dioxide (22-30) mmol/L Anion Gap (5-15) MEQ/L BUN (9-20) mg/dL Creatinine (0.66-1.25) mg/dL Estimated GFR ML/MIN Glucose (74-106) mg/dL POC Glucometer (74 to 106) mg/dL Hemoglobin A1c (4.5-6.0) % Lactic Acid 6.6 H (0.4-2.0) Calcium (8.4-10.2) mg/dL Total Bilirubin (0.2-1.3) mg/dL AST (17-59) U/L ALT (0-50) U/L Alkaline Phosphatase (38-126) U/L Troponin I (0.000-0.033) ng/mL Serum Total Protein (6.3-8.2) g/dL Albumin (3.5-5.0) g/dL Lipase (23-300) U/L Influenza Type A Ag (NEGATIVE) Influenza Type B Ag (NEGATIVE) RSV (PCR) (NEGATIVE) SARS-CoV-2 (PCR) (NEGATIVE) 02/09/24 Range/Units 20:22 WBC (4.23-9.07) x10^3/uL RBC (4.63-6.08) x10^6/uL Hgb (13.7-17.5) g/dL Hct (40.1-51.0) % MCV (79.0-92.2) fL MCH (25.7-32.2) pg MCHC (32.3-36.5) g/dL RDW (11.6-14.4) % Plt Count (163-337) x10^3/uL MPV (9.4-12.4) fL Gran % (34.0-67.9) % Immature Gran % (Auto) (0.001-0.429) % Nucleat RBC Rel Count (0.00-0.2) % Eos # (Auto) (0.04-0.54) x10^3/uL Immature Gran # (Auto) (0.001-0.031) x10^3u/L Absolute Lymphs (auto) (1.32-3.57) x10^3/uL Absolute Monos (auto) (0.30-0.82) x10^3/uL Absolute Nucleated RBC (0.00-0.012) x10^3u/L Lymphocytes % (21.8-53.1) % Monocytes % (5.3-12.2) % Eosinophils % (0.8-7.0) % Basophils % (0.2-1.2) % Absolute Granulocytes (1.78-5.38) x10^3/uL Basophils # (0.01-0.08) x10^3/uL pO2/FiO2 Ratio % VBG pH (7.32-7.42) VBG pCO2 at Pat Temp (42-55) mm/Hg VBG pO2 at Pat Temp (25-40) mm/Hg VBG HCO3 (22-28) meq/L VBG O2 Sat ([place]) (95-100) VBG Base Excess (-2.0-2.0) VBG Hemoglobin VBG Carboxyhemoglobin (0.0-6.9) % T HGB POC Potassium (3.5-5.1) Sodium (135-145) mmol/L Potassium (3.5-5.1) mmol/L Chloride (98-107) mmol/L Carbon Dioxide (22-30) mmol/L Anion Gap (5-15) MEQ/L BUN (9-20) mg/dL Creatinine (0.66-1.25) mg/dL Estimated GFR ML/MIN Glucose (74-106) mg/dL POC Glucometer (74 to 106) mg/dL Hemoglobin A1c 8.07 H (4.5-6.0) % Lactic Acid (0.4-2.0) Calcium (8.4-10.2) mg/dL Total Bilirubin (0.2-1.3) mg/dL AST (17-59) U/L ALT (0-50) U/L Alkaline Phosphatase (38-126) U/L Troponin I (0.000-0.033) ng/mL Serum Total Protein (6.3-8.2) g/dL Albumin (3.5-5.0) g/dL Lipase (23-300) U/L Influenza Type A Ag (NEGATIVE) Influenza Type B Ag (NEGATIVE) RSV (PCR) (NEGATIVE) SARS-CoV-2 (PCR) (NEGATIVE) - Progress Progress: improved Progress Note: Gastroenteritis Acute onset of vomiting, severe diarrhea, abdominal cramps, vertigo, and nausea suggestive of viral gastroenteritis. Inability to retain fluids or food since yesterday indicates risk for dehydration. - Administer IV fluids for dehydration - Obtain laboratory tests to assess overall health status - Administer antiemetic medication for nausea - Provide antidiarrheal medication for diarrhea Patient improved will dc home with return precautions. Counseled pt/family regarding: lab results, diagnosis, need for follow-up, rad results Medical Desision Making - Diagnostic Testing Diagnostic test were ordered, analyzed, and reviewed by me: Yes Radiological Interpretation: Interpreted by me - Risk of complications The pt has a mod risk of morbidity or mortality based on: Need for prescription drug management - Departure Departure Disposition: Home Clinical Impression: Lung nodule, Incidental lung nodule, greater than or equal to 8mm, Hyperglycemia, Vomiting, Viral gastritis, Dehydration Condition: Good Critical Care Time: No Referrals: GRZEGORZ JOHNSON MD [Primary Care Provider] - Follow up/PCP as directed Instructions: Viral gastroenteritis in adults, High Blood Sugar, Adult ED Prescriptions: Promethazine HCl 25 mg [Phenergan 25 mg] 25 mg PO TID PRN 7 Days #21 tablet PRN Reason: Nausea/Vomiting
[2024-02-09 20:38] LABS: Absolute Neutrophil Ct (ANC) 13.33 x10^3/uL (1.78-5.38); BASOPHIL % 0.1 % (0.2-1.2); Basophil (Absolute #) 0.02 x10^3/uL (0.01-0.08); Eosinophil (Absolute #) 0 x10^3/uL (0.04-0.54); Hematocrit 44.8 % (40.1-51.0); Hemoglobin 15.1 g/dL (13.7-17.5); IMMATURE GRAN # 0.08 x10^3u/L (0.001-0.031); IMMATURE GRAN % 0.5 % (0.001-0.429); Lymphocyte (Absolute #) 0.78 x10^3/uL (1.32-3.57); Lymphocytes % 5.3 % (21.8-53.1); Mean Corpuscular Hgb Concent. 33.7 g/dL (32.3-36.5); Mean Platelet Volume 11.6 fL (9.4-12.4); Monocyte (Absolute #) 0.38 x10^3/uL (0.30-0.82); Monocytes % 2.6 % (5.3-12.2); Neutrophil % 91.5 % (34.0-67.9); Platelet Count 227 x10^3/uL (163-337); Red Blood Count 5.21 x10^6/uL (4.63-6.08); Red Cell Distribution Width 12.5 % (11.6-14.4); White Blood Count 14.6 x10^3/uL (4.23-9.07)
[2024-02-09] MEDS: Phenergan 25 MG INJ*** 25 MG in Sodium Chloride 0.9% 100 ML IV ONE (20:38)
[2024-02-09 20:45] LABS: ALBUMIN 5.1 g/dL (3.5-5.0); ANION GAP 21.9 MEQ/L (5-15); BILIRUBIN,TOTAL 0.9 mg/dL (0.2-1.3); Calcium 10.3 mg/dL (8.4-10.2); Creatinine 1 1.06 mg/dL (0.66-1.25); Potassium 3.9 mmol/L (3.5-5.1)
[2024-02-09 20:59] LABS: VBG BASE EXCESS 1.9 (-2.0-2.0); VBG CARBOXYHEMOGLOBIN 4.3 % T HGB (0.0-6.9); VBG HCO3- 26.6 meq/L (22-28); VBG HEMOGLOBIN 16.1; VBG O2 SATURATION 97.3 (95-100); VBG POTASSIUM 4.2 (3.5-5.1); VBG pH 7.42 (7.32-7.42)
[2024-02-09] MEDS ORDERED: HUMALOG ONE (20:59)
[2024-02-09] MEDS: HUMALOG SQ ONE (21:01)
[2024-02-09 21:41] LABS: INFLUENZA A NEGATIVE (NEGATIVE); INFLUENZA B NEGATIVE (NEGATIVE); RESPIRATORY SYNCTIAL VIRUS NEGATIVE (NEGATIVE); SARS-CoV-2 Xpert Express NEGATIVE (NEGATIVE)
--- NOTE | 2024-02-09 22:25 | XRAY ---
CLINICAL HISTORY: abd pain COMPARISON: - TECHNIQUE: Contiguous axial images were obtained from the level of the diaphragm to the pubic symphysis without intravenous or oral contrast. Coronal and sagittal reconstructions were likewise performed and indicated to increase the sensitivity for detecting clinically relevant pathology. CT scan was performed according to ALARA (as low as reasonable achievable). FINDINGS: The visualized lung bases are clear. 10 mm nodule in lower lobe of right lung. Evaluation of the abdominal and pelvic visceral organs is limited without intravenous contrast. The unenhanced liver, spleen, pancreas are grossly unremarkable. The gallbladder is present. Mildly bulky left adrenal gland. The kidneys are normal in size and attenuation. Bilateral non-obstructive renal calculi are seen, largest in the left kidney measuring around 0.6 cm. There is no hydronephrosis . Bilateral perinephric fat stranding. The ureters are normal in caliber. No adenopathy or fluid collections are seen. No evidence of focal or diffuse bowel wall thickening or evidence of bowel obstruction is seen. The aorta is normal in caliber. The urinary bladder is normal in contour. Prostate is enlarged in size, measuring around 5.4 x 4.3 cm Degenerative changes in the visualized spine. No aggressive appearing osseous lesions are identified. Left sided inguinal hernia containing fat. IMPRESSION: 1. Bilateral non-obstructive renal calculi 2. Prostatomegaly 3. 10 mm nodule in lower lobe of right lung, Suggested follow up CT chest. Electronically Signed by: Edu Marie MD. (02/09/2024 22:21:03 EST)
[2024-02-09 22:58] VITALS: RESP 18
--- NOTE | 2024-02-09 23:57 | XRAY ---
CLINICAL HISTORY: lung nodule COMPARISON: None. TECHNIQUE: Contiguous axial images were obtained from the neck base through the upper abdomen without contrast. In addition, sagittal and coronal reconstructions were performed to potentially increase the sensitivity for the detection of disease. CT scan was performed according to ALARA (as low as reasonably achievable). FINDINGS: Sternal sutures are noted. Well defined solid nodule of size 10 x 13 x 9.7 mm (AP x TR x CC) is noted in the posterior basal segment of the right lower lobe. Tiny cavity is noted within it. No calcification / fat component /air fluid level is seen. No contact with the pleural surface is noted. No spiculated margins are noted. Rest of the lung parenchyma appear normal. The central airways are patent. There are no pleural effusions. No pneumothorax is seen. Evaluation of the mediastinum and mars is limited due to the lack of intravenous contrast. The heart is normal in size. No pericardial effusion is identified. Aorta, and pulmonary arteries are of normal size and configuration. Atherosclerotic calcifications are noted involving aortic root, aorta and its branches, coronary arteries. No axillary or mediastinal adenopathy is identified. The thyroid is unremarkable. Imaged portions of the upper abdomen are unremarkable. No aggressive appearing osseous lesions are identified. IMPRESSION: 1. Well defined solid nodule in the right lower lobe as described; Lung RADS 4A. Correlation with the prior CT study/ 3 month follow up/ PET CT is suggested. Electronically Signed by: Edu Marie MD. (02/09/2024 23:53:22 EST)
[2024-02-10 00:12] VITALS: BP 114/58; PULSE 93
[2024-02-10 05:29] VITALS: O2SAT 99
== END 2024-02-10 00:10 | disposition home or self-care (01) ==
LOC: ED 18:33
DX: A08.4 Viral intestinal infection, unspecified (principal); E86.0 Dehydration; R91.1 Solitary pulmonary nodule; E11.65 Type 2 diabetes mellitus with hyperglycemia; Z79.4 Long term (current) use of insulin; Z79.899 Other long term (current) drug therapy
CPT/HCPCS: 0241U; 36415; 71250; 74176; 80053; 82805; 82947; 83036; 83605; 83690; 84484; 85025; 93005; 96360; 96374; 96375; 99285; J1817; J2405